=== PATIENT | male | born 1960 | race Caucasian/White ===

== ENCOUNTER → 2017-02-05 | Outpatient (CLI) | payer OTHER ==
[~2017-02-05] MED LIST: AMLO10TA2 PO; AMLO5TAB2 PO; BACT800T5 PO; BAYETES; GLUCTES27 XX; LEVEMIR SQ; LIPI20TA PO; NOVORP2 SQ; OMEP40CA2 PO; [UNRECOGNIZED DRUG - OTHER]; insulin syringes SQ
[2017-02-05 08:50] LABS: ALKALINE PHOSPHATASE 90 U/L (45-117); ALT (GPT) 26 U/L (12-78); ANION GAP 7 MEQ/L (5-15); AST (GOT) 21 U/L (15-37); BICARBONATE 30.8 MEQ/L (21.0-32.0); BLOOD UREA NITROGEN 25 MG/DL (7-18); CHLORIDE 105 MEQ/L (98-107); GLOMERULAR FILTRATION RATE 46 ML/MIN (>89); GLUCOSE,FASTING 187 MG/DL (74-99); HDL CHOLESTEROL 59.4 MG/DL (40.0-60.0); LDL CHOLESTEROL 57 MG/DL (0-99); SODIUM (NA) 143 MEQ/L (136-145); TOTAL BILIRUBIN ADULT 0.4 MG/DL (0.2-1.0)
== END ==
LOC: CLAB 07:50
PROVIDERS: ATTEND Family Medicine
DX: E11.9 Type 2 diabetes mellitus without complications (principal); L73.9 Follicular disorder, unspecified; I10 Essential (primary) hypertension; Z59.0 Homelessness
CPT/HCPCS: 36415; 80053; 80061

== ENCOUNTER → 2017-02-12 | Outpatient (CLI) | payer OTHER ==
[2017-02-12 10:53] LABS: ANION GAP 6 MEQ/L (5-15); BLOOD UREA NITROGEN 23 MG/DL (7-18); CHLORIDE 103 MEQ/L (98-107); GLOMERULAR FILTRATION RATE 55 ML/MIN (>89); GLUCOSE,FASTING 142 MG/DL (74-99); POTASSIUM 5.2 MEQ/L (3.5-5.1); SODIUM (NA) 142 MEQ/L (136-145)
[2017-02-12 10:56] LABS: HEMOGLOBIN A1a 1.3 %; HEMOGLOBIN A1b 0.9 %; HEMOGLOBIN Ao 82.9 %; HEMOGLOBIN LA1C 2.3 %; HEMOGLOBIN P3 4.1 %
== END ==
LOC: CLAB 09:49
PROVIDERS: ATTEND Family Medicine
DX: N18.9 Chronic kidney disease, unspecified (principal); E11.9 Type 2 diabetes mellitus without complications
CPT/HCPCS: 36415; 80069; 83036

== ENCOUNTER → 2017-02-19 | Outpatient (CLI) | payer OTHER ==
[~2017-02-19] MED LIST changes: -AMLO5TAB2 PO
[2017-02-19 08:42] LABS: URINE TOTAL PROTEIN TIMED 9.3 MG/DL
== END ==
LOC: CLAB 07:52
PROVIDERS: ATTEND Family Medicine
DX: N18.9 Chronic kidney disease, unspecified (principal)
CPT/HCPCS: 84157

== ENCOUNTER 2018-08-25 13:04 | Inpatient (IN) ==
[2018-08-25] MEDS ORDERED: Sod Chloride 0.9% Inj 1,000 ML IV.SIG ONE (13:10)
[2018-08-25 13:21] LABS: ABG PCO2 24 mmHg (38-42); ABG PO2 61 mmHg (61-120)
[2018-08-25 13:42] LABS: Baso # (Auto) 0.1 th/mm3 (0.0-0.2); Baso % (Auto) 0.3 % (0.0-2.0); Eos % (Auto) 0.1 % (0.0-4.0); Hematocrit 38.8 % (39.0-51.0); Hemoglobin 12.5 gm/dL (13.0-17.0); Lymph # (Auto) 1.9 th/mm3 (1.0-4.8); Lymph % (Auto) 10.9 % (9.0-44.0); Mean Corpuscular HGB Conc 32.4 % (32.0-36.0); Mean Corpuscular Volume 89.5 fL (80.0-100.0); Mean Platelet Volume 8.9 fL (7.0-11.0); Mono # (Auto) 1.1 th/mm3 (0.0-0.9); Mono % (Auto) 6.5 % (0.0-8.0); Neut # (Auto) 14.2 th/mm3 (1.8-7.7); Neut % (Auto) 82.2 % (16.0-70.0); Platelet Count 175 th/mm3 (150-450); Red Blood Count 4.33 mil/mm3 (4.50-5.90); Red Cell Distribution Width 13.1 % (11.6-17.2); White Blood Count 17.2 th/mm3 (4.0-11.0)
[2018-08-25 13:57] LABS: Activated Partial Thrombo Time 24.5 sec (24.3-30.1); INR 1.3 Ratio; Prothrombin Time 13.3 sec (9.8-11.6)
[2018-08-25 14:06] LABS: Alanine Aminotransferase 15 U/L (12-78); Albumin 2.6 g/dL (3.4-5.0); Alkaline Phosphatase 86 U/L (45-117); Anion Gap 16 meq/L (5-15); Aspartate Aminotransferase 30 U/L (15-37); Blood Urea Nitrogen 26 mg/dL (7-18); Calcium 8.5 mg/dL (8.5-10.1); Carbon Dioxide 19.3 meq/L (21.0-32.0); Chloride 94 meq/L (98-107); Creatine Kinase 304 U/L (39-308); Glomerular Filtration Rate 17 mL/min (>89); Lipase 53 U/L (73-393); Magnesium 1.5 mg/dL (1.5-2.5); Phosphorus 0.7 mg/dL (2.5-4.9); Sodium 129 meq/L (136-145); Total Protein 7.4 g/dL (6.4-8.2)
[2018-08-25 14:07] LABS: Potassium 4.4 meq/L (3.5-5.1)
[2018-08-25 14:09] LABS: Glucose,Random 516 mg/dL (74-106)
[2018-08-25 14:12] LABS: Bacteria,Urine Many /hpf; Bilirubin,Urine Negative (Negative); Clarity,Urine Cloudy (Clear); Color,Urine Yellow (Yellw/Straw); Glucose,Urine (UA) 50 mg/dL (Negative); Leukocyte Esterase,Urine Negative (Negative); Nitrite,Urine Negative (Negative); Specific Gravity,Urine 1.012 (1.002-1.035)
--- NOTE | 2018-08-25 14:23 | CT ---
EXAM DATE: 08/25/2018 1:17 PM EDT AGE/SEX: 89 years / Male INDICATIONS: Altered mental status. CLINICAL DATA: This is the patient's initial encounter. Patient reports that signs and symptoms have been present for 1 day and indicates a pain score of Nonresponsive. MEDICAL/SURGICAL HISTORY: Non-responsive. Non-responsive. RADIATION DOSE: 36.64 CTDI (mGy) COMPARISON: No prior exams available for comparison. TECHNIQUE: CT of the head without contrast. Using automated exposure control and adjustment of the mA and/or kV according to patient size, radiation dose was kept as low as reasonably achievable to ob tain optimal diagnostic quality images. DICOM format image data is available electronically for revi ew and comparison. FINDINGS: Cerebrum: The ventricles are normal for age. No evidence of midline shift, mass lesion, hemorrhage or acute infarction. No extraaxial fluid collections are seen. Posterior Fossa: The cerebellum and brainstem are intact. The 4th ventricle is midline. The cerebe llopontine angle is unremarkable. Extracranial: The visualized portion of the orbits is intact. Skull: The calvaria is intact. No evidence of skull fracture. CONCLUSION: 1. Negative CT Head non contrast. . Electronically signed by: Dago Parra MD 08/25/2018 2:22 PM EDT
--- NOTE | 2018-08-25 14:23 | XR ---
EXAM DATE: 08/25/2018 1:09 PM EDT AGE/SEX: 89 years / Male INDICATIONS: Fever and shortness of breath. CLINICAL DATA: This is the patient's initial encounter. Patient reports that signs and symptoms have been present for 1 day and indicates a pain score of Nonresponsive. MEDICAL/SURGICAL HISTORY: Non-responsive. Non-responsive. COMPARISON: No prior exams available for comparison. FINDINGS: There is a right IJ central line catheter appears in good position. No pneumothorax is seen. The hear t is normal in size. The lungs are clear. The bony structures are grossly intact. CONCLUSION: Right IJ central venous catheter in good position. The lungs are clear. Electronically signed by: Dago Parra MD 08/25/2018 2:22 PM EDT
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
[2018-08-25] MEDS ORDERED: Acetaminophen 325 MG Tablet PO PRN (16:15)
[2018-08-25] MEDS ORDERED: Bisacodyl 10 MG Supp RECTAL PRN (16:15)
[2018-08-25] MEDS ORDERED: Vancomycin Inj 1,250 MG in Sodium Chlor 0.9% Inj 250 ML IV.SIG ONE (16:46)
[2018-08-25] MEDS ORDERED: Vancomycin Consult Pharmacy OTHER PRN (16:46)
[2018-08-25] MEDS ORDERED: Dextrose 50% in Water 50 ML Vial IV.PUSH PRN (16:47)
--- NOTE | 2018-08-25 16:52 | P.HP ---
History of Present Illness Service: Hospitalist Chief Complaint: Altered mental status, abscess History of Present Illness: Mr. Eulogio Anne is a pleasant 58 year old male ( 1960) with a history of diabetes mellitus who was brought to the ED after he was found in altered mental status on the side of a road in the sun. Initially, he came in with GCS 5 and temp of 106.7. Patient recalls going to a store to buy a few things. He was then returning back with this bike but he was not riding his bike. He did not have any chest pain, shortness of breath. He may have felt some dizziness. He does not recall anything else that happened to him. He was given 3L of chilled NS in the ED. His mentation improved quite well. At the time of this interview, patient is coherent and pleasant. He reports a painful area on his left upper back that started about one week ago but much worse in the last two days. He had subjective fever and chills. It has been difficult to sleep due to this lesion on his left upper back. He denies any changes in bladder or bowel habits. PMH: Diabetes mellitus PSH: No major surgeries Social history: Drinks whenever he can obtain drinks. Denies using tobacco or illicit drugs. Family history: Parents had diabetes, brother had diabetes as well. - Diagnosis (1) Hyperthermia (2) Sepsis (3) Soft tissue abscess (4) Diabetes mellitus Review of Systems All other systems reviewed negative except as stated [facility] - History History Provided By: Dean / EMT - Tobacco History Smoking Status: Unknown if ever smoked - Alcohol History How Often Do You Have a Drink Containing Alcohol: Unable to Obtain - Immunization History Tetanus Immunization: Unsure Medications and Allergies Active Medications: Active Medications Acetaminophen (Tylenol) 650 mg PO Q4H PRN PRN Reason: Fever, headache, pain 1-4 Al Hydroxide/Mg Hydroxide (Milk Of Magnesia Liq) 30 ml PO Q12H PRN PRN Reason: Mild Constipation Bisacodyl (Dulcolax Supp) 10 mg RECTAL DAILY PRN PRN Reason: SEVERE CONSITIPATION Dextrose (D50w Vial) 50 ml IV.PUSH UNSCH PRN PRN Reason: PER HYPOGLYCEMIA PROTOCOL Glucagon (Glucagon Inj) 1 mg OTHER PRN PRN PRN Reason: for Hypoglycemia Protocol Sodium Chloride (Ns Inj) 1,000 mls @ 200 mls/hr IV.CONT .Q5H RAVINDRA Piperacillin/Tazobactam/Dextrose (Zosyn 3.375 Gm Premix) 50 mls @ 100 mls/hr IV.SIG Q6H RAVINDRA Vancomycin HCl 1,250 mg/ (Sodium Chloride) 262.5 mls @ 250 mls/hr IV.SIG ONCE ONE Stop: 08/25/18 17:48 Insulin Aspart (Novolog Insulin Correctional Sugar Inj) 0 unit SQ ACHS RAVINDRA; Protocol Insulin Aspart (Novolog Inj) 5 units SQ TIDAC RAVINDAR Insulin Detemir (Levemir Inj) 20 unit SQ HS RAVINDRA Lactulose (Lactulose Liq) 30 ml PO DAILY PRN PRN Reason: SEVERE CONSITIPATION Ondansetron HCl (Zofran Inj) 4 mg IV.PUSH Q6H PRN PRN Reason: NAUSEA OR VOMITING Pharmacy Profile Note (Vancomycin Consult Pharmacy) 1 each OTHER UNSCH PRN PRN Reason: Pharmacy to dose Sennosides (Senokot) 17.2 mg PO Q12H PRN PRN Reason: Moderate Constipation Allergies Allergy/AdvReac Type Severity Reaction Status Date / Time No Known Allergies Allergy Unverified 08/25/18 13:09 Home Medications Medication Instructions Recorded Confirmed Type No Known Home Medications 08/25/18 08/25/18 History Exam Vital signs: Vital Signs 08/25/18 13:05 08/25/18 13:19 08/25/18 13:39 Temperature 106.7 F H 101.8 F H 104.2 F H Pulse Rate 138 H 116 H 122 H Respiratory Rate 45 H 46 H 38 H Blood Pressure 124/56 L 116/56 L 113/55 L Pulse Oximetry 95 94 L 98 08/25/18 16:20 Temperature Pulse Rate Respiratory Rate Blood Pressure Pulse Oximetry 96 Intake & Output 08/24/18 08/25/18 08/25/18 18:59 06:59 18:59 Intake Total 1000 / 1000 Balance 1000 / 1000 Weight 81.647 kg Intake: IV 1000 / 1000 NS Inj 1,000 ML @ 1000 mls/hr 1000 / 1000 IV.SIG ONCE ONE Rx#:[id number] Narrative: GENERAL: This is a well-nourished, well-developed patient, in no apparent distress. Disheveled. SKIN: No rashes, ecchymoses. Warm and dry. There is a large indurated lesion on the left upper back, erythematous. HEAD: Atraumatic. Normocephalic. No temporal or scalp tenderness. EYES: Pupils equal round and reactive. No injection or drainage. ENT: Nose without bleeding, purulent drainage or septal hematoma. Airway patent. NECK: Trachea midline. No lymphadenopathy. Supple, nontender, no meningeal signs. CARDIOVASCULAR: Regular rate and rhythm without murmurs, gallops, or rubs. No JVD. RESPIRATORY: Clear to auscultation. Breath sounds equal bilaterally. No wheezes , rales, or rhonchi. GASTROINTESTINAL: Abdomen soft, non-tender, nondistended. No guarding. MUSCULOSKELETAL: Extremities without clubbing, cyanosis, or edema. NEUROLOGICAL: Awake and alert. Cranial nerves II through XII intact. No focal neurological deficits. Normal speech. Results - Labs CBC & Chem 7: 08/25/18 13:30 08/25/18 17:06 Labs: Laboratory Results - last 24 hr 08/25/18 08/25/18 08/25/18 13:00 13:30 13:30 WBC 17.2 H RBC 4.33 L Hgb 12.5 L Hct 38.8 L MCV 89.5 MCH 29.0 MCHC 32.4 RDW 13.1 Plt Count 175 MPV 8.9 Neut % (Auto) 82.2 H Lymph % (Auto) 10.9 [place] % (Auto) 6.5 Eos % (Auto) 0.1 Baso % (Auto) 0.3 Neut # (Auto) 14.2 H Lymph # (Auto) 1.9 [place] # (Auto) 1.1 H Eos # (Auto) 0.0 Baso # (Auto) 0.1 WBC Differential . Differential Comment Auto diff final PT 13.3 H INR 1.3 APTT 24.5 Puncture Site Right femoral Patient Temperature 98.6 O2 Saturation 92 ABG pH 7.50 H ABG pCO2 24 L* ABG pO2 61 ABG HCO3 19 L ABG O2 Content 15.6 ABG Base Excess -4.0 L ABG Methemoglobin 0.8 Rfed Test Present Hemoglobin 12.1 Carboxyhemoglobin 1.6 O2 Delivery Device Nasal cannula Liter Flow 4.00 Critical Value Yes Sodium Potassium Chloride Carbon Dioxide Anion Gap BUN Creatinine Estimated GFR Random Glucose Lactic Acid Calcium Phosphorus Magnesium Total Bilirubin AST ALT Alkaline Phosphatase Total Creatine Kinase CK-MB (CK-2) Total Protein Albumin Lipase Urine Color Urine Clarity Urine pH Ur Specific [place] Urine Protein Urine Glucose (UA) Urine Ketones Urine Occult Blood Urine Nitrate Urine Bilirubin Urine Urobilinogen Ur Leukocyte Esterase Urine RBC Urine WBC Urine Bacteria Micro UA Comment Ur Microscopic Review Urine Culture Comments 08/25/18 08/25/18 08/25/18 13:30 13:30 13:55 WBC RBC Hgb Hct MCV MCH MCHC RDW Plt Count MPV Neut % (Auto) Lymph % (Auto) [place] % (Auto) Eos % (Auto) Baso % (Auto) Neut # (Auto) Lymph # (Auto) [place] # (Auto) Eos # (Auto) Baso # (Auto) WBC Differential Differential Comment PT INR APTT Puncture Site Patient Temperature O2 Saturation ABG pH ABG pCO2 ABG pO2 ABG HCO3 ABG O2 Content ABG Base Excess ABG Methemoglobin Fred Test Hemoglobin Carboxyhemoglobin O2 Delivery Device Liter Flow Critical Value Sodium 129 L Potassium 4.4 Chloride 94 L Carbon Dioxide 19.3 L Anion Gap 16 H BUN 26 H Creatinine 3.10 H Estimated GFR 17 L Random Glucose 516 H* Lactic Acid 3.2 H Calcium 8.5 Phosphorus 0.7 L Magnesium 1.5 Total Bilirubin 1.0 AST 30 ALT 15 Alkaline Phosphatase 86 Total Creatine Kinase 304 CK-MB (CK-2) Less than 1.0 Total Protein 7.4 Albumin 2.6 L Lipase 53 L Urine Color Yellow Urine Clarity Cloudy H Urine pH 5.0 Ur Specific [place] 1.012 Urine Protein 30 H Urine Glucose (UA) 50 Urine Ketones Negative Urine Occult Blood Small H Urine Nitrate Negative Urine Bilirubin Negative Urine Urobilinogen Less than 2 Ur Leukocyte Esterase Negative Urine RBC 2 Urine WBC 1 Urine Bacteria Many H Micro UA Comment Cath-culture ind Ur Microscopic Review Not Reportable Urine Culture Comments Cath-cult indicated - Imaging Impressions Chest X-Ray 08/25/18 13:09 CONCLUSION: Right IJ central venous catheter in good position. The lungs are clear. Head CT 08/25/18 13:09 CONCLUSION: 1. Negative CT Head non contrast. . Caprini VTE Risk Assessment Caprini VTE Risk Assessment: No/Low Risk (score <= 1) Caprini Risk Assessment Model: Point Value = 1 Point Value = 2 Point Value = 3 Point Value = 5 Age 41-60 Minor surgery BMI > 25 kg/m2 Swollen legs Varicose veins or History of unexplained or recurrent spontaneous Oral contraceptives or hormone replacement Sepsis (< 1 month) Serious lung disease, including pneumonia (< 1 month) Abnormal pulmonary function Acute myocardial infarction Congestive heart failure (< 1 month) History of inflammatory bowel disease Medical patient at bed rest Age 61-74 Arthroscopic surgery Major open surgery (> 45 min) Laparoscopic surgery (> 45 min) Malignancy Confined to bed (> 72 hours) Immobilizing plaster cast Central venous access Age >= 75 History of VTE Family history of VTE Factor V Leiden Prothrombin [id number] Lupus anticoagulant Anticardiolipin antibodies Elevated serum homocysteine Heparin-induced thrombocytopenia Other congenital or acquired thrombophilia Stroke (< 1 month) Elective arthroplasty Hip, pelvis, or leg fracture Acute spinal cord injury (< 1 month) Prophylaxis Regimen: Total Risk Factor Score Risk Level Prophylaxis Regimen 0-1 Low Early ambulation 2 Moderate Order ONE of the following: *Sequential Compression Device (SCD) *Heparin 5000 units SQ BID 3-4 Higher Order ONE of the following medications: *Heparin 5000 units SQ TID *Enoxaparin/Lovenox 40 mg SQ daily (WT < 150 kg, CrCl > 30 mL/min) *Enoxaparin/Lovenox 30 mg SQ daily (WT < 150 kg, CrCl > 10-29 mL/min) *Enoxaparin/Lovenox 30 mg SQ BID (WT < 150 kg, CrCl > 30 mL/min) AND/OR *Sequential Compression Device (SCD) 5 or more Highest Order ONE of the following medications: *Heparin 5000 units SQ TID (Preferred with Epidurals) *Enoxaparin/Lovenox 40 mg SQ daily (WT < 150 kg, CrCl > 30 mL/min) *Enoxaparin/Lovenox 30 mg SQ daily (WT < 150 kg, CrCl > 10-29 mL/min) *Enoxaparin/Lovenox 30 mg SQ BID (WT < 150 kg, CrCl > 30 mL/min) AND *Sequential Compression Device (SCD) Assessment and Plan - Assessment (1) Hyperthermia Code(s): R50.9 - Fever, unspecified Status: Acute (2) Sepsis Code(s): A41.9 - Sepsis, unspecified organism Status: Acute (3) Soft tissue abscess Code(s): L02.91 - Cutaneous abscess, unspecified Status: Acute (4) Diabetes mellitus Code(s): E11.9 - Type 2 diabetes mellitus without complications Status: Acute - Plan Mr. Anne is a pleasant 58 year old male with a history of diabetes mellitus who was brought to the hospital by EMS with altered mental status, GCS 5 and temp 106.7 after he was found at the side of the road in the sun. Hyperthermia - Possibly heat stroke. His condition improved with normal saline infusion. - CK 304, will check again this afternoon. Sepsis (Fever, WBC over 17K, lactic acid 3.2, probable infection skin abscess). Left upper back skin abscess - We will obtain an ultrasound study. - Empirically, we will start Vancomycin and Zosyn. - Blood cultures pending Diabetes mellitus Diabetes retinopathy Diabetic peripheral neuropathy -Start Levemir 15 units QHS, sliding scale insulin and pre-meal insulin. -May consider Gabapentin once creatinine improves. Acute kidney injury -Creatinine 3.1 on admission. Likely due to volume depletion. -Will provide aggressive hydration with NS 200cc/hour. -Repeat BMP, Lactic acid, Total CK in the afternoon today and labs in the AM. Full code. Megax.
[2018-08-25] MEDS ORDERED: Sodium Chloride 0.9% 2 ML Flush PRN IV.FLUSH (16:53)
[2018-08-25] MEDS ORDERED: Vancomycin Inj 2,000 MG in Sodium Chlor 0.9% Inj 500 ML IV.SIG ONE (17:00)
[2018-08-25] MEDS: Sod Chloride 0.9% Inj 1,000 ML IV.CONT SCH ×2 (17:38→21:49)
--- NOTE | 2018-08-25 17:44 | US ---
EXAM DATE: 08/25/2018 12:00 AM EDT AGE/SEX: 89 years / Male INDICATIONS: Swelling and redness on the left upper back. CLINICAL DATA: This is the patient's initial encounter. Patient reports that signs and symptoms have been present for 1 week and indicates a pain score of 0/10. MEDICAL/SURGICAL HISTORY: None. None. COMPARISON: No prior exams available for comparison. FINDINGS: A targeted ultrasound examination was performed along the left upper back at site of swelling and red ness. This demonstrates a complex hypoechoic structure measuring up to 4.5 x 2 x 4.2 cm in diameter. This is mild surrounding color flow and no internal color flow. The margins are fairly well defined. CONCLUSION: 1. Complex hypoechoic masslike structure which is nonspecific. This could represent a hematoma. Electronically signed by: Eduardo Avery MD 08/25/2018 5:43 PM EDT
[2018-08-25] MEDS: Insulin NovoLOG Aspart Correctional Sugar Inj SQ SCH ×2 (17:50→22:07)
[2018-08-25] MEDS: Piperacil/Tazo 3.375 GM Premix 50 ML IV.SIG SCH (17:51)
[2018-08-25 18:35] LABS: Calcium 7.6 mg/dL (8.5-10.1); Carbon Dioxide 22.3 meq/L (21.0-32.0)
[2018-08-25 19:13] LABS: CKMB Percent 0.4 % (0.0-4.0); Creatine Kinase MB 3.7 ng/mL (0.5-3.6)
[2018-08-25] MEDS ORDERED: Insulin Detemir Inj 1,000 UNIT/10 ML Vial SQ SCH (21:00)
[2018-08-25] MEDS: Insulin Detemir Inj 1,000 UNIT/10 ML Vial SQ SCH (21:49)
[2018-08-25] MEDS: Sodium Chloride 0.9% 2 ML Flush BID IV.FLUSH SCH (22:07)
[2018-08-26] MEDS: Piperacil/Tazo 3.375 GM Premix 50 ML IV.SIG SCH ×5 (00:46→23:18)
[2018-08-26] MEDS: Sod Chloride 0.9% Inj 1,000 ML IV.CONT SCH ×7 (03:24→22:52)
[2018-08-26 05:02] LABS: Baso % (Auto) 0.4 % (0.0-2.0); Eos # (Auto) 0.1 th/mm3 (0.0-0.4); Eos % (Auto) 0.9 % (0.0-4.0); Hematocrit 31.1 % (39.0-51.0); Hemoglobin 10.5 gm/dL (13.0-17.0); Lymph % (Auto) 9.3 % (9.0-44.0); Mean Corpuscular HGB Conc 33.9 % (32.0-36.0); Mean Corpuscular Hemoglobin 29.4 pg (27.0-34.0); Mean Corpuscular Volume 86.7 fL (80.0-100.0); Mean Platelet Volume 8.7 fL (7.0-11.0); Mono # (Auto) 0.8 th/mm3 (0.0-0.9); Mono % (Auto) 6.8 % (0.0-8.0); Neut # (Auto) 9.4 th/mm3 (1.8-7.7); Neut % (Auto) 82.6 % (16.0-70.0); Platelet Count 101 th/mm3 (150-450); Red Blood Count 3.59 mil/mm3 (4.50-5.90); Red Cell Distribution Width 12.8 % (11.6-17.2); White Blood Count 11.3 th/mm3 (4.0-11.0)
[2018-08-26 05:44] LABS: Alanine Aminotransferase 22 U/L (12-78); Albumin 2.3 g/dL (3.4-5.0); Alkaline Phosphatase 67 U/L (45-117); Anion Gap 10 meq/L (5-15); Aspartate Aminotransferase 66 U/L (15-37); Blood Urea Nitrogen 30 mg/dL (7-18); Calcium 7.6 mg/dL (8.5-10.1); Chloride 106 meq/L (98-107); Creatine Kinase 2227 U/L (39-308); Glomerular Filtration Rate 28 mL/min (>89); Glucose,Random 119 mg/dL (74-106); Potassium 3.6 meq/L (3.5-5.1); Sodium 141 meq/L (136-145); Total Protein 6.1 g/dL (6.4-8.2); Vancomycin,Trough 18.5 mcg/mL (5.0-10.0)
[2018-08-26 06:05] LABS: CKMB Percent 0.6 % (0.0-4.0); Creatine Kinase MB 13.4 ng/mL (0.5-3.6)
[2018-08-26] MEDS: Insulin NovoLOG Aspart Correctional Sugar Inj SQ SCH ×4 (08:34→20:38)
[2018-08-26] MEDS: Sodium Chloride 0.9% 2 ML Flush BID IV.FLUSH SCH ×3 (08:42→20:39)
[2018-08-26 08:57] LABS: ABG Base Excess 2.8 mmol/L (-2-2); ABG PCO2 28 mmHg (38-42); ABG PO2 109 mmHg (60-120)
[2018-08-26] MEDS ORDERED: Enoxaparin Inj 30 MG/0.3 ML Syringe SQ SCH (09:00)
--- NOTE | 2018-08-26 14:06 | ECHRPT ---
Indication: SEPSIS ENDOCARDITIS CONCLUSIONS Normal left ventricular size. Wall thickness is normal. The left ventricular systolic function is low normal with an estimated ejection fraction in the rang e of 50- 55%. Trace mitral valve regurgitation. Aortic valve sclerosis is present. Mild thickening of the aortic valve leaflets. The estimated pulmonary arterial pressure is 16 mmHg. There is a trivial pericardial effusion present. BP: / HR: Rhythm: Technical Quality: FINDINGS LEFT VENTRICLE Normal left ventricular size. Wall thickness is normal. The left ventricular systolic function is low normal with an estimated ejection fraction in the rang e of 50- 55%. RIGHT VENTRICLE Normal right ventricular size and systolic function. LEFT ATRIUM The left atrial size is normal. RIGHT ATRIUM The right atrial size is normal. ATRIAL SEPTUM Normal atrial septal thickness without atrial level shunting by limited color doppler interrogation. AORTA The aortic root and proximal ascending aorta are normal in size on limited imaging. MITRAL VALVE Trace mitral valve regurgitation. AORTIC VALVE Aortic valve sclerosis is present. Mild thickening of the aortic valve leaflets. TRICUSPID VALVE The estimated pulmonary arterial pressure is 16 mmHg. PULMONARY VALVE The pulmonary valve is not well visualized. VESSELS The inferior vena cava is normal in size. PERICARDIUM There is a trivial pericardial effusion present. Roberto Santiago MD, FACC, FSCAI (Electronically Signed) Final Date:26 August 2018 14:05
--- NOTE | 2018-08-26 14:34 | P.CONID ---
History of Present Illness Service: Infectious Disease Consult date: 08/26/18 Requesting Physician: Lj Mahoney Reason for Consult: Evaluate patient with positive blood culture Primary Care Provider: UNKNOWN Chief Complaint: Altered mental status, abscess History of Present Illness: Patient seen and examined. Records reviewed. Patient is a 58-year-old male, brought into the hospital after [place]. Patient could not really remember what happened and how he ended up on the day H. He was apparently out in the road in the sun. He was given fluids in the ED, and his mental status improved. His temperature was 106.7 when he came in, white count was 17,000. CT of the head was negative. Patient was found to have a complex fluid in his back. He could not remember how he got it. Patient however is homeless. Temperatures are better. His WBC is down to 11. Blood cultures are now reported as growing gram-positive cocci. Patient also had renal insufficiency, and his creatinine is down to 2. Patient denies any respiratory complaint. He has not had any fever chills or sweats prior to coming into the hospital. He denies any abdominal pain, nausea or vomiting. Denies any urinary complaints. Patient denies using IV drugs. Infectious disease consultation has been requested to evaluate the patient with positive blood culture. Review of Systems Constitutional: Reports fever(s) Eyes: Denies discharge, Denies dry eyes Ears, Nose, Mouth, and Throat: Denies difficulty swallowing, Denies ear pain, Denies facial pain, Denies mouth pain, Denies nasal congestion, Denies nasal discharge, Denies sore throat Cardiovascular: Denies chest pain, Denies shortness of breath Respiratory: Denies chest congestion, Denies cough, Denies shortness of breath Gastrointestinal: Denies loose stools, Denies nausea, Denies pain with swallowing, Denies vomiting Genitourinary: Denies difficulty urinating, Denies painful urination Musculoskeletal: Reports back pain, Denies joint pain, Denies joint swelling Skin/Breast: Reports sores, Denies rash Neurologic: Denies headache(s) PMFSH - History History Provided By: Patient - Tobacco History Second Hand Smoke Exposure: Yes Smoking Status: Never smoker - Alcohol History How Often Do You Have a Drink Containing Alcohol: 2 to 4 times a month - Substance Use History Substance History: No History of Abuse - Travel History Recent Travel in the [facility] Within the Last 8 Weeks: No - Immunization History Tetanus Immunization: Unsure Medications and Allergies Active Medications: Active Medications Acetaminophen (Tylenol) 650 mg PO Q4H PRN PRN Reason: Fever, headache, pain 1-4 Al Hydroxide/Mg Hydroxide (Milk Of Magnesia Liq) 30 ml PO Q12H PRN PRN Reason: Mild Constipation Bisacodyl (Dulcolax Supp) 10 mg RECTAL DAILY PRN PRN Reason: SEVERE CONSITIPATION Dextrose (D50w Vial) 50 ml IV.PUSH UNSCH PRN PRN Reason: PER HYPOGLYCEMIA PROTOCOL Enoxaparin Sodium (Lovenox Inj) 30 mg SQ DAILY [facility] Last Admin: 08/26/18 08:30 Dose: 30 mg Glucagon (Glucagon Inj) 1 mg OTHER PRN PRN PRN Reason: for Hypoglycemia Protocol Sodium Chloride (Ns Inj) 1,000 mls @ 200 mls/hr IV.CONT .Q5H [facility] Last Admin: 08/26/18 08:38 Dose: 200 mls/hr Piperacillin/Tazobactam/Dextrose (Zosyn 3.375 Gm Premix) 50 mls @ 100 mls/hr IV.SIG Q6H [facility] Last Infusion: 08/26/18 13:05 Dose: Infused Insulin Aspart (Novolog Insulin Correctional Sugar Inj) 0 unit SQ ACHS [facility]; Protocol Last Admin: 08/26/18 12:36 Dose: 2 unit Insulin Aspart (Novolog Inj) 5 units SQ TIDAC [facility] Last Admin: 08/26/18 12:36 Dose: 5 units Insulin Detemir (Levemir Inj) 15 unit SQ HS [facility] Last Admin: 08/25/18 21:49 Dose: 15 unit Lactulose (Lactulose Liq) 30 ml PO DAILY PRN PRN Reason: SEVERE CONSITIPATION Ondansetron HCl (Zofran Inj) 4 mg IV.PUSH Q6H PRN PRN Reason: NAUSEA OR VOMITING Pharmacy Profile Note (Vancomycin Consult Pharmacy) 1 each OTHER UNSCH PRN PRN Reason: Pharmacy to dose Potassium Chloride (Klor-Con 10) 30 meq PO BID [facility] Stop: 08/28/18 20:59 Last Admin: 08/26/18 08:30 Dose: 30 meq Sennosides (Senokot) 17.2 mg PO Q12H PRN PRN Reason: Moderate Constipation Sodium Chloride (Ns Flush) 2 ml IV.FLUSH BID [facility] Last Admin: 08/26/18 08:42 Dose: Not Given Sodium Chloride (Ns Flush) 2 ml IV.FLUSH PRN PRN PRN Reason: FLUSH AFTER USING IV ACCESS Allergies Allergy/AdvReac Type Severity Reaction Status Date / Time No Known Allergies Allergy Unverified 08/25/18 13:09 Home Medications Medication Instructions Recorded Confirmed Type No Known Home Medications 08/25/18 08/25/18 History Exam Vital signs: Vital Signs 08/25/18 14:30 08/25/18 15:30 08/25/18 16:20 Temperature 102.6 F H 101.8 F H Pulse Rate 118 H 124 H Respiratory Rate 17 24 Blood Pressure 118/59 L 118/67 Pulse Oximetry 97 100 96 08/25/18 16:30 08/25/18 17:30 08/25/18 18:49 Temperature 101.1 F H 101.1 F H Pulse Rate 119 H 106 H 76 Respiratory Rate 21 21 Blood Pressure 119/65 106/60 101/56 L Pulse Oximetry 100 100 97 08/25/18 19:16 08/25/18 19:17 08/25/18 19:56 Temperature 99.5 F Pulse Rate 76 Respiratory Rate 16 Blood Pressure 102/71 Pulse Oximetry 100 98 08/25/18 22:00 08/25/18 23:13 08/26/18 00:00 Temperature 97.2 F L 97 F L Pulse Rate 72 75 66 Respiratory Rate 20 20 Blood Pressure 104/64 105/57 L Pulse Oximetry 98 98 08/26/18 04:00 08/26/18 04:38 08/26/18 08:00 Temperature 97.6 F 97.9 F Pulse Rate 68 70 64 Respiratory Rate 20 20 Blood Pressure 120/65 126/64 Pulse Oximetry 100 98 08/26/18 12:00 Temperature Pulse Rate 65 Respiratory Rate Blood Pressure Pulse Oximetry Intake & Output 08/25/18 08/26/18 08/26/18 18:59 06:59 18:59 Intake Total 1050 / 1050 2780 / 2780 1100 / 1100 Output Total 1999 / 1999 Balance 1050 / 1050 780 / 780 1100 / 1100 Weight 81.647 kg 84.3 kg Intake: IV 1050 / 1050 2570 / 2570 1100 / 1100 NS Inj 1,000 ML @ 200 mls/hr IV 1999 1000 / 1000 .CONT .Q5H [facility] Rx#:[id number] Zosyn 3.375 GM Premix 50 ML @ 50 / 50 50 / 50 100 / 100 100 mls/hr IV.SIG Q6H [facility] Rx#: [id number] NS Inj 1,000 ML @ 1000 mls/hr 1000 / 1000 IV.SIG ONCE ONE Rx#:[id number] Vancomycin Inj 2,000 MG In NS 520 / 520 Inj 500 ML @ 250 mls/hr IV.SIG ONCE ONE Rx#:[id number] Oral 210 / 210 Output: Urine Amount (Catheter) 1999 Indwelling Urethral Catheter 1999 Other: Date of Last Bowel Movement 08/25/18 08/25/18 Weight On Admission 84.3 kg Narrative: Physical Examination GENERAL: Patient is a well-nourished, well-developed male, unkempt, awake and alert, not in respiratory distress. SKIN: Cool and dry. No generalized rash. he has a lot of dirt on his skin rachel in BLE. No evidence of embolic lesions. HEAD: Atraumatic. Normocephalic. No temporal wasting, or tenderness. EYES: [place] conjunctiva. No petechia or hemorrhage. Pupils equal, round and reactive to light. Extraocular movements full and intact. No scleral icterus. No injection or drainage. EARS, NOSE AND THROAT: Nose without bleeding or purulent nasal discharge. No sinus tenderness. Mucous membranes pink and moist. No oral lesions noted. No exudate. No oral thrush. NECK: Trachea midline. Supple and not tender, no meningeal signs CARDIOVASCULAR: Regular rate and rhythm. No murmurs, rubs or gallops heard RESPIRATORY: Clear to auscultation. Breath sounds equal bilaterally. No rales , wheezing or rhonchi ABDOMEN: Soft, non-tender, nondistended. Bowel sounds present and normoactive. No guarding. No rebound. No organomegaly. BACK: There is a tender indurated area in the L upper back, with 1 inch eschar in the middle, has bloody drainage in the dressingf= EXTREMITIES: No clubbing, cyanosis, or edema. No joint effusion, has good ROM. No calf tenderness. Well perfused and warm. NEUROLOGICAL: Awake and alert. Cranial nerves grossly intact. Motor grossly within normal limits. PSYCHIATRIC: Normal affect, calm and cooperative. LINE: No evidence of infection Results - Labs CBC & Chem 7: 08/26/18 04:04 08/26/18 04:04 Labs: Laboratory Results - last 24 hr 08/25/18 08/25/18 08/25/18 13:55 14:09 17:06 WBC RBC Hgb Hct MCV MCH MCHC RDW Plt Count MPV Neut % (Auto) Lymph % (Auto) [place] % (Auto) Eos % (Auto) Baso % (Auto) Neut # (Auto) Lymph # (Auto) [place] # (Auto) Eos # (Auto) Baso # (Auto) WBC Differential Differential Comment Puncture Site Right radial Patient Temperature 98.6 O2 Saturation 97 ABG pH 7.47 H ABG pCO2 28 L ABG pO2 109 ABG HCO3 20 L ABG O2 Content 16.2 ABG Base Excess 2.8 H ABG Methemoglobin 0.7 Fred Test Present Hemoglobin 11.8 L Carboxyhemoglobin 1.4 O2 Delivery Device Room air Inspired O2 21 Critical Value No Sodium Potassium Chloride Carbon Dioxide Anion Gap BUN Creatinine Estimated GFR POC Glucose Random Glucose Lactic Acid 3.2 H 2.2 H Calcium Total Bilirubin AST ALT Alkaline Phosphatase Total Creatine Kinase CK-MB (CK-2) CK-MB (CK-2) % Total Protein Albumin Vancomycin Trough 08/25/18 08/25/18 08/25/18 17:06 17:41 21:48 WBC RBC Hgb Hct MCV MCH MCHC RDW Plt Count MPV Neut % (Auto) Lymph % (Auto) [place] % (Auto) Eos % (Auto) Baso % (Auto) Neut # (Auto) Lymph # (Auto) [place] # (Auto) Eos # (Auto) Baso # (Auto) WBC Differential Differential Comment Puncture Site Patient Temperature O2 Saturation ABG pH ABG pCO2 ABG pO2 ABG HCO3 ABG O2 Content ABG Base Excess ABG Methemoglobin Fred Test Hemoglobin Carboxyhemoglobin O2 Delivery Device Inspired O2 Critical Value Sodium 135 L Potassium 3.0 L D Chloride 99 Carbon Dioxide 22.3 Anion Gap 14 BUN 30 H Creatinine 2.60 H Estimated GFR 21 L POC Glucose 384 H 142 H Random Glucose 392 H D Lactic Acid Calcium 7.6 L D Total Bilirubin AST ALT Alkaline Phosphatase Total Creatine Kinase 937 H CK-MB (CK-2) 3.7 H CK-MB (CK-2) % 0.4 Total Protein Albumin Vancomycin Trough 08/26/18 08/26/18 08/26/18 04:04 04:04 12:35 WBC 11.3 H RBC 3.59 L Hgb 10.5 L D Hct 31.1 L MCV 86.7 MCH 29.4 MCHC 33.9 RDW 12.8 Plt Count 101 L D MPV 8.7 Neut % (Auto) 82.6 H Lymph % (Auto) 9.3 [place] % (Auto) 6.8 Eos % (Auto) 0.9 Baso % (Auto) 0.4 Neut # (Auto) 9.4 H Lymph # (Auto) 1.0 [place] # (Auto) 0.8 Eos # (Auto) 0.1 Baso # (Auto) 0.0 WBC Differential . Differential Comment Auto diff final Puncture Site Patient Temperature O2 Saturation ABG pH ABG pCO2 ABG pO2 ABG HCO3 ABG O2 Content ABG Base Excess ABG Methemoglobin Fred Test Hemoglobin Carboxyhemoglobin O2 Delivery Device Inspired O2 Critical Value Sodium 141 Potassium 3.6 Chloride 106 Carbon Dioxide 25.0 Anion Gap 10 BUN 30 H Creatinine 2.06 H Estimated GFR 28 L POC Glucose 150 H Random Glucose 119 H D Lactic Acid Calcium 7.6 L Total Bilirubin 0.3 AST 66 H ALT 22 Alkaline Phosphatase 67 Total Creatine Kinase 2227 H CK-MB (CK-2) 13.4 H CK-MB (CK-2) % 0.6 Total Protein 6.1 L D Albumin 2.3 L Vancomycin Trough 18.5 H - Imaging Impressions Soft Tissue Ultrasound 08/25/18 00:00 CONCLUSION: 1. Complex hypoechoic masslike structure which is nonspecific. This could represent a hematoma. Assessment and Plan - Plan Impression (+) Bc with GPC, ?real or contaminant - prob due to abscess in his back Abscess in L upper back Fevers, ?hyperthermia due to exposure, due to infection - better renal insufficiency leukocytosis better Recommendation Repeat BC Follow C/S Continue IV vanco - pharmacy doing dosing Also on Zosyn - if nothing else on C/S, will D/C Will ask surgery to evaluate the back for4 possible I and D Follow temps Monitor progress I will follow along with you Thank you for this consultation
--- NOTE | 2018-08-26 15:03 | ECG ---
Date Performed: 08/25/2018 Time Performed: 19:41:38 PTAGE: 89 years EKG: Sinus rhythm POSSIBLE LEFT ATRIAL ENLARGEMENT RIGHT BUNDLE BRANCH BLOCK MODERATE T-WAVE ABNORMALITY, CONSIDER LAT ERAL ISCHEMIA ABNORMAL ECG NO PREVIOUS TRACING DOCTOR: Winnie Grijalva Interpretating Date/Time 08/26/2018 15:00:33
--- NOTE | 2018-08-26 17:42 | P.PNIM ---
Physical Exam Vital signs: Vital Signs 08/25/18 18:49 08/25/18 19:16 08/25/18 19:17 Temperature 99.5 F Pulse Rate 76 76 Respiratory Rate 16 Blood Pressure 101/56 L 102/71 Pulse Oximetry 97 100 08/25/18 19:56 08/25/18 22:00 08/25/18 23:13 Temperature 97.2 F L Pulse Rate 72 75 Respiratory Rate 20 Blood Pressure 104/64 Pulse Oximetry 98 98 08/26/18 00:00 08/26/18 04:00 08/26/18 04:38 Temperature 97 F L 97.6 F Pulse Rate 66 68 70 Respiratory Rate 20 20 Blood Pressure 105/57 L 120/65 Pulse Oximetry 98 100 08/26/18 08:00 08/26/18 12:00 08/26/18 16:00 Temperature 97.9 F Pulse Rate 64 65 60 Respiratory Rate 20 Blood Pressure 126/64 Pulse Oximetry 98 Intake & Output 08/25/18 08/26/18 08/26/18 18:59 06:59 18:59 Intake Total 1050 / 1050 2780 / 2780 2099 / 2099 Output Total 1999 Balance 1050 / 1050 780 / 780 2099 / 2099 Weight 81.647 kg 84.3 kg Intake: IV 1050 / 1050 2570 / 2570 2099 / 2100 NS Inj 1,000 ML @ 200 mls/hr IV 1999 .CONT .Q5H [facility] Rx#:[id number] Zosyn 3.375 GM Premix 50 ML @ 50 / 50 50 / 50 100 / 100 100 mls/hr IV.SIG Q6H [facility] Rx#: [id number] NS Inj 1,000 ML @ 1000 mls/hr 1000 / 1000 IV.SIG ONCE ONE Rx#:[id number] Vancomycin Inj 2,000 MG In NS 520 / 520 Inj 500 ML @ 250 mls/hr IV.SIG ONCE ONE Rx#:[id number] Oral 210 / 210 Output: Urine Amount (Catheter) 1999 Indwelling Urethral Catheter 1999 Other: Date of Last Bowel Movement 08/25/18 08/25/18 Weight On Admission 84.3 kg - Urinary Catheter Management Indwelling Urethral Catheter Cath placed during this visit: yes, but has since been removed by the nurse Reason for continuing: Hourly intake/output Insertion date: 08/25/18 Insertion time: 13:16 Removal date: 08/26/18 Removal time: 04:05 Results - Labs CBC & Chem 7: 08/26/18 04:04 08/26/18 04:04 Laboratory Results - last 24 hr 08/25/18 08/25/18 08/25/18 14:09 17:06 17:06 WBC RBC Hgb Hct MCV MCH MCHC RDW Plt Count MPV Neut % (Auto) Lymph % (Auto) [place] % (Auto) Eos % (Auto) Baso % (Auto) Neut # (Auto) Lymph # (Auto) [place] # (Auto) Eos # (Auto) Baso # (Auto) WBC Differential Differential Comment Puncture Site Right radial Patient Temperature 98.6 O2 Saturation 97 ABG pH 7.47 H ABG pCO2 28 L ABG pO2 109 ABG HCO3 20 L ABG O2 Content 16.2 ABG Base Excess 2.8 H ABG Methemoglobin 0.7 Fred Test Present Hemoglobin 11.8 L Carboxyhemoglobin 1.4 O2 Delivery Device Room air Inspired O2 21 Critical Value No Sodium 135 L Potassium 3.0 L D Chloride 99 Carbon Dioxide 22.3 Anion Gap 14 BUN 30 H Creatinine 2.60 H Estimated GFR 21 L POC Glucose Random Glucose 392 H D Lactic Acid 2.2 H Calcium 7.6 L D Total Bilirubin AST ALT Alkaline Phosphatase Total Creatine Kinase 937 H CK-MB (CK-2) 3.7 H CK-MB (CK-2) % 0.4 Total Protein Albumin Vancomycin Trough 08/25/18 08/25/18 08/26/18 17:41 21:48 04:04 WBC 11.3 H RBC 3.59 L Hgb 10.5 L D Hct 31.1 L MCV 86.7 MCH 29.4 MCHC 33.9 RDW 12.8 Plt Count 101 L D MPV 8.7 Neut % (Auto) 82.6 H Lymph % (Auto) 9.3 [place] % (Auto) 6.8 Eos % (Auto) 0.9 Baso % (Auto) 0.4 Neut # (Auto) 9.4 H Lymph # (Auto) 1.0 [place] # (Auto) 0.8 Eos # (Auto) 0.1 Baso # (Auto) 0.0 WBC Differential . Differential Comment Auto diff final Puncture Site Patient Temperature O2 Saturation ABG pH ABG pCO2 ABG pO2 ABG HCO3 ABG O2 Content ABG Base Excess ABG Methemoglobin Fred Test Hemoglobin Carboxyhemoglobin O2 Delivery Device Inspired O2 Critical Value Sodium Potassium Chloride Carbon Dioxide Anion Gap BUN Creatinine Estimated GFR POC Glucose 384 H 142 H Random Glucose Lactic Acid Calcium Total Bilirubin AST ALT Alkaline Phosphatase Total Creatine Kinase CK-MB (CK-2) CK-MB (CK-2) % Total Protein Albumin Vancomycin Trough 08/26/18 08/26/18 08/26/18 04:04 12:35 17:32 WBC RBC Hgb Hct MCV MCH MCHC RDW Plt Count MPV Neut % (Auto) Lymph % (Auto) [place] % (Auto) Eos % (Auto) Baso % (Auto) Neut # (Auto) Lymph # (Auto) [place] # (Auto) Eos # (Auto) Baso # (Auto) WBC Differential Differential Comment Puncture Site Patient Temperature O2 Saturation ABG pH ABG pCO2 ABG pO2 ABG HCO3 ABG O2 Content ABG Base Excess ABG Methemoglobin Fred Test Hemoglobin Carboxyhemoglobin O2 Delivery Device Inspired O2 Critical Value Sodium 141 Potassium 3.6 Chloride 106 Carbon Dioxide 25.0 Anion Gap 10 BUN 30 H Creatinine 2.06 H Estimated GFR 28 L POC Glucose 150 H 132 H Random Glucose 119 H D Lactic Acid Calcium 7.6 L Total Bilirubin 0.3 AST 66 H ALT 22 Alkaline Phosphatase 67 Total Creatine Kinase 2227 H CK-MB (CK-2) 13.4 H CK-MB (CK-2) % 0.6 Total Protein 6.1 L D Albumin 2.3 L Vancomycin Trough 18.5 H Microbiology 08/25/18 13:55 Blood - Peripheral Aerobic Blood Culture - Preliminary gram positive cocci 08/25/18 13:55 Blood - Peripheral Anaerobic Blood Culture - Preliminary No growth in 1 day 08/25/18 13:30 Catheterized Urine Urine Culture - Preliminary No growth in 24 hours 08/25/18 13:55 Blood - Peripheral Aerobic Blood Culture - Preliminary gram positive cocci 08/25/18 13:55 Blood - Peripheral Anaerobic Blood Culture - Preliminary No growth in 1 day - Imaging Impressions Soft Tissue Ultrasound 08/25/18 00:00 CONCLUSION: 1. Complex hypoechoic masslike structure which is nonspecific. This could represent a hematoma. Assessment and Plan - Assessment (1) Hyperthermia Code(s): R50.9 - Fever, unspecified Status: Acute (2) Sepsis Code(s): A41.9 - Sepsis, unspecified organism Status: Acute (3) Soft tissue abscess Code(s): L02.91 - Cutaneous abscess, unspecified Status: Acute (4) Diabetes mellitus Code(s): E11.9 - Type 2 diabetes mellitus without complications Status: Acute - Plan Mr. Anne is a pleasant 58 year old male with a history of diabetes mellitus who was brought to the hospital by EMS with altered mental status, GCS 5 and temp 106.7 after he was found at the side of the road in the sun. //Hyperthermia - Possibly heat stroke. His condition improved with normal saline infusion. - CK 304, will check again this afternoon. //Sepsis (Fever, WBC over 17K, lactic acid 3.2, probable infection skin abscess) . //Left upper back skin abscess //Gram-positive bacteremia. - We will obtain an ultrasound study. - Empirically, we will start Vancomycin and Zosyn. - Blood cultures pending = 08/26. Gram-positive bacteremia today. Repeat blood cultures, check echocardiogram, consult infectious disease. Possible sources include back abscess as well as bilateral foot ulcers. Continue IV antibiotics. General surgery consulted. Appreciate assistance for I&D today. //Bilateral diabetic foot ulcers Continue IV antibiotics. Consult podiatry. //Diabetes mellitus //Diabetes retinopathy //Diabetic peripheral neuropathy -Start Levemir 15 units QHS, sliding scale insulin and pre-meal insulin. -May consider Gabapentin once creatinine improves. = Blood sugars acceptable. Continue to monitor. //Elevated CK. CK up to 2227. Continue IV fluids. Continue to monitor. //Acute kidney injury -Creatinine 3.1 on admission. Likely due to volume depletion. -Will provide aggressive hydration with NS 200cc/hour. -Repeat BMP, Lactic acid, Total CK in the afternoon today and labs in the AM. = Creatinine 2.0, improving. Continue IV fluids. Discussed Condition With: Patient, nurse Discharge Planning: Pending improvement. Difficult discharge as patient is homeless with bacteremia
--- NOTE | 2018-08-26 17:43 | P.CONGS ---
[facility] Gen Surgery Consult Note Consult date: 08/26/18 Reason for consult: other (back abscess) Narrative: This is a 58 year old male with a past medical history of diabetes mellitus who was found in a ditch and hyperthermic. He is unsure of the events leading up to this. He reports a large painful area on his back. A General Surgery consultation has been requested for evaluation of a back abscess. Review of Systems All other systems reviewed negative except as stated in [facility] PMF - History History Provided By: Patient - Medical History Medical History: Medical History (Last Updated 08/27/18 @ 14:48 by OLIVA Rossi) Abscess Diabetes mellitus - Tobacco History Second Hand Smoke Exposure: Yes Smoking Status: Never smoker - Alcohol History How Often Do You Have a Drink Containing Alcohol: 2 to 4 times a month - Substance Use History Substance History: No History of Abuse - Travel History Recent Travel in the [facility] Within the Last 8 Weeks: No - Immunization History Tetanus Immunization: Unsure Medications and Allergies Allergies Allergy/AdvReac Type Severity Reaction Status Date / Time No Known Allergies Allergy Unverified 08/25/18 13:09 Home Medications Medication Instructions Recorded Confirmed Type No Known Home Medications 08/25/18 08/25/18 History Active Medications: Active Medications Acetaminophen (Tylenol) 650 mg PO Q4H PRN PRN Reason: Fever, headache, pain 1-4 Al Hydroxide/Mg Hydroxide (Milk Of Magnkathleen Liq) 30 ml PO Q12H PRN PRN Reason: Mild Constipation Bisacodyl (Dulcolax Supp) 10 mg RECTAL DAILY PRN PRN Reason: SEVERE CONSITIPATION Dextrose (D50w Vial) 50 ml IV.PUSH UNSCH PRN PRN Reason: PER HYPOGLYCEMIA PROTOCOL Enoxaparin Sodium (Lovenox Inj) 30 mg SQ DAILY [facility] Last Admin: 08/26/18 08:30 Dose: 30 mg Glucagon (Glucagon Inj) 1 mg OTHER PRN PRN PRN Reason: for Hypoglycemia Protocol Sodium Chloride (Ns Inj) 1,000 mls @ 200 mls/hr IV.CONT .Q5H [facility] Last Admin: 08/26/18 15:59 Dose: Not Given Piperacillin/Tazobactam/Dextrose (Zosyn 3.375 Gm Premix) 50 mls @ 100 mls/hr IV.SIG Q6H [facility] Last Admin: 10/01/18 17:30 Dose: 100 mls/hr Vancomycin HCl 1,250 mg/ (Sodium Chloride) 262.5 mls @ 250 mls/hr IV.SIG Q24H [facility] Insulin Aspart (Novolog Insulin Correctional Sugar Inj) 0 unit SQ ACHS [facility]; Protocol Last Admin: 08/26/18 17:32 Dose: Not Given Insulin Aspart (Novolog Inj) 5 units SQ TIDAC [facility] Last Admin: 08/26/18 17:32 Dose: Not Given Insulin Detemir (Levemir Inj) 15 unit SQ HS [facility] Last Admin: 08/25/18 21:49 Dose: 15 unit Lactulose (Lactulose Liq) 30 ml PO DAILY PRN PRN Reason: SEVERE CONSITIPATION Miscellaneous Information ([facility] Ordered Lab Info) 0 each OTHER ONCE ONE Stop: 08/28/18 17:46 Ondansetron HCl (Zofran Inj) 4 mg IV.PUSH Q6H PRN PRN Reason: NAUSEA OR VOMITING Pharmacy Profile Note (Vancomycin Consult Pharmacy) 1 each OTHER UNSCH PRN PRN Reason: Pharmacy to dose Potassium Chloride (Klor-Con 10) 30 meq PO BID [facility] Stop: 08/28/18 20:59 Last Admin: 08/26/18 08:30 Dose: 30 meq Sennosides (Senokot) 17.2 mg PO Q12H PRN PRN Reason: Moderate Constipation Sodium Chloride (Ns Flush) 2 ml IV.FLUSH BID [facility] Last Admin: 08/26/18 08:42 Dose: Not Given Sodium Chloride (Ns Flush) 2 ml IV.FLUSH PRN PRN PRN Reason: FLUSH AFTER USING IV ACCESS Exam Vital signs: Vital Signs 08/25/18 18:49 08/25/18 19:16 08/25/18 19:17 Temperature 99.5 F Pulse Rate 76 76 Respiratory Rate 16 Blood Pressure 101/56 L 102/71 Pulse Oximetry 97 100 08/25/18 19:56 08/25/18 22:00 08/25/18 23:13 Temperature 97.2 F L Pulse Rate 72 75 Respiratory Rate 20 Blood Pressure 104/64 Pulse Oximetry 98 98 08/26/18 00:00 08/26/18 04:00 08/26/18 04:38 Temperature 97 F L 97.6 F Pulse Rate 66 68 70 Respiratory Rate 20 20 Blood Pressure 105/57 L 120/65 Pulse Oximetry 98 100 08/26/18 08:00 08/26/18 12:00 08/26/18 16:00 Temperature 97.9 F Pulse Rate 64 65 60 Respiratory Rate 20 Blood Pressure 126/64 Pulse Oximetry 98 Intake & Output 08/25/18 08/26/18 08/26/18 18:59 06:59 18:59 Intake Total 1050 / 1050 2780 / 2780 2099 Output Total 1999 Balance 1050 / 1050 780 / 780 2099 Weight 81.647 kg 84.3 kg Intake: IV 1050 / 1050 2570 / 2570 2099 NS Inj 1,000 ML @ 200 mls/hr IV 1999 .CONT .Q5H [facility] Rx#:[id number] Zosyn 3.375 GM Premix 50 ML @ 50 / 50 50 / 50 100 / 100 100 mls/hr IV.SIG Q6H [facility] Rx#: [id number] NS Inj 1,000 ML @ 1000 mls/hr 1000 / 1000 IV.SIG ONCE ONE Rx#:[id number] Vancomycin Inj 2,000 MG In NS 520 / 520 Inj 500 ML @ 250 mls/hr IV.SIG ONCE ONE Rx#:[id number] Oral 210 / 210 Output: Urine Amount (Catheter) 1999 Indwelling Urethral Catheter 1999 Other: Date of Last Bowel Movement 08/25/18 08/25/18 Weight On Admission 84.3 kg Narrative: GENERAL: Dishevel 58 year old male resting in bed watching TV. SKIN: Bilateral feet with dirt--- areas appearing as ulcers on the bottom of both feet. Large indurated area on upper back with eschar. HEAD: Atraumatic. Normocephalic. EYES: Pupils equal and round. No scleral icterus. No injection or drainage. ENT: No nasal bleeding or discharge. Mucous membranes pink and moist. NECK: Trachea midline. CARDIOVASCULAR: Regular rate and rhythm. RESPIRATORY: No accessory muscle use. Clear to auscultation. Breath sounds equal bilaterally. GASTROINTESTINAL: Abdomen soft, non-tender, nondistended. MUSCULOSKELETAL: Extremities without clubbing, cyanosis, or edema. No obvious deformities. NEUROLOGICAL: Awake and alert. No obvious cranial nerve deficits. Motor grossly within normal limits. Five out of 5 muscle strength in the arms and legs. Normal speech. PSYCHIATRIC: Appropriate mood and affect; insight and judgment normal. - Routine Skin Exam Present: intact Comments: upper back with eschar and induration Results - Labs 08/27/18 06:12 08/27/18 06:12 Laboratory Results - last 24 hr 08/25/18 08/25/18 08/25/18 14:09 17:06 17:06 WBC RBC Hgb Hct MCV MCH MCHC RDW Plt Count MPV Neut % (Auto) Lymph % (Auto) [place] % (Auto) Eos % (Auto) Baso % (Auto) Neut # (Auto) Lymph # (Auto) [place] # (Auto) Eos # (Auto) Baso # (Auto) WBC Differential Differential Comment Puncture Site Right radial Patient Temperature 98.6 O2 Saturation 97 ABG pH 7.47 H ABG pCO2 28 L ABG pO2 109 ABG HCO3 20 L ABG O2 Content 16.2 ABG Base Excess 2.8 H ABG Methemoglobin 0.7 Fred Test Present Hemoglobin 11.8 L Carboxyhemoglobin 1.4 O2 Delivery Device Room air Inspired O2 21 Critical Value No Sodium 135 L Potassium 3.0 L D Chloride 99 Carbon Dioxide 22.3 Anion Gap 14 BUN 30 H Creatinine 2.60 H Estimated GFR 21 L POC Glucose Random Glucose 392 H D Lactic Acid 2.2 H Calcium 7.6 L D Total Bilirubin AST ALT Alkaline Phosphatase Total Creatine Kinase 937 H CK-MB (CK-2) 3.7 H CK-MB (CK-2) % 0.4 Total Protein Albumin Vancomycin Trough 08/25/18 08/25/18 08/26/18 17:41 21:48 04:04 WBC 11.3 H RBC 3.59 L Hgb 10.5 L D Hct 31.1 L MCV 86.7 MCH 29.4 MCHC 33.9 RDW 12.8 Plt Count 101 L D MPV 8.7 Neut % (Auto) 82.6 H Lymph % (Auto) 9.3 [place] % (Auto) 6.8 Eos % (Auto) 0.9 Baso % (Auto) 0.4 Neut # (Auto) 9.4 H Lymph # (Auto) 1.0 [place] # (Auto) 0.8 Eos # (Auto) 0.1 Baso # (Auto) 0.0 WBC Differential . Differential Comment Auto diff final Puncture Site Patient Temperature O2 Saturation ABG pH ABG pCO2 ABG pO2 ABG HCO3 ABG O2 Content ABG Base Excess ABG Methemoglobin Fred Test Hemoglobin Carboxyhemoglobin O2 Delivery Device Inspired O2 Critical Value Sodium Potassium Chloride Carbon Dioxide Anion Gap BUN Creatinine Estimated GFR POC Glucose 384 H 142 H Random Glucose Lactic Acid Calcium Total Bilirubin AST ALT Alkaline Phosphatase Total Creatine Kinase CK-MB (CK-2) CK-MB (CK-2) % Total Protein Albumin Vancomycin Trough 08/26/18 08/26/18 08/26/18 04:04 12:35 17:32 WBC RBC Hgb Hct MCV MCH MCHC RDW Plt Count MPV Neut % (Auto) Lymph % (Auto) [place] % (Auto) Eos % (Auto) Baso % (Auto) Neut # (Auto) Lymph # (Auto) [place] # (Auto) Eos # (Auto) Baso # (Auto) WBC Differential Differential Comment Puncture Site Patient Temperature O2 Saturation ABG pH ABG pCO2 ABG pO2 ABG HCO3 ABG O2 Content ABG Base Excess ABG Methemoglobin Fred Test Hemoglobin Carboxyhemoglobin O2 Delivery Device Inspired O2 Critical Value Sodium 141 Potassium 3.6 Chloride 106 Carbon Dioxide 25.0 Anion Gap 10 BUN 30 H Creatinine 2.06 H Estimated GFR 28 L POC Glucose 150 H 132 H Random Glucose 119 H D Lactic Acid Calcium 7.6 L Total Bilirubin 0.3 AST 66 H ALT 22 Alkaline Phosphatase 67 Total Creatine Kinase 2227 H CK-MB (CK-2) 13.4 H CK-MB (CK-2) % 0.6 Total Protein 6.1 L D Albumin 2.3 L Vancomycin Trough 18.5 H - Imaging Imaging: ITS Impressions Soft Tissue Ultrasound 08/25/18 00:00 CONCLUSION: 1. Complex hypoechoic masslike structure which is nonspecific. This could represent a hematoma. Chest X-Ray 08/25/18 13:09 CONCLUSION: Right IJ central venous catheter in good position. The lungs are clear. Head CT 08/25/18 13:09 CONCLUSION: 1. Negative CT Head non contrast. . Assessment and Plan - Plan 58 year old male with upper back abscess -Plan for OR this evening for I&D and possible Wound Vac placement -Obtain consents -NPO -Procedure explained in detail including risks and benefits -Plan also discussed with Dr. Mahoney -May benefit from Podiatry consultation for ulcers on bilateral feet -Thank you for this consult; We will continue to follow Patient ate a chicken sandwich at 3:30PM according to him; as he is not septic, will plan for surgery tomorrow The exam, history, and the medical decision-making described in the above note were completed with the assistance of the mid-level provider. I reviewed and agree with the findings presented. I attest that I had a [id number] encounter with the patient on the same day, and personally performed and documented my assessment and findings in the medical record. Discussed Condition With: Dr. Wallace Mahoney RN Mr. Anne - Attending Attestation I attest that I had a [id number] encounter with the patient on the same day, and personally performed and documented my assessment and findings in the medical record. The following services were provided during this hospital visit: Chart data review, vital sign assessments/reviewing monitor data Review of consultation notes if present Medication orders/review and/or management Ordering and/or reviewing lab tests Ordering and/or interpreting/reviewing x-rays and/or diagnostic studies Care of the patient and discussion of the patient with the care team Documentation time To help prompt me to consider important information that might be impacting today's encounter and assessment, Information from prior notes written by myself or my colleagues may have been "brought forward/copy and pasted" into today's note.
[2018-08-26] MEDS: Vancomycin Inj 1,250 MG in Sodium Chlor 0.9% Inj 250 ML IV.SIG SCH (18:04)
[2018-08-26] MEDS: Insulin Detemir Inj 1,000 UNIT/10 ML Vial SQ SCH (20:37)
[2018-08-27] MEDS: Sod Chloride 0.9% Inj 1,000 ML IV.CONT SCH ×3 (04:25→10:26)
[2018-08-27] MEDS: Piperacil/Tazo 3.375 GM Premix 50 ML IV.SIG SCH ×4 (06:43→23:26)
[2018-08-27 07:20] LABS: Baso # (Auto) 0.1 th/mm3 (0.0-0.2); Baso % (Auto) 0.7 % (0.0-2.0); Eos # (Auto) 0.3 th/mm3 (0.0-0.4); Eos % (Auto) 4.7 % (0.0-4.0); Hematocrit 29.5 % (39.0-51.0); Mean Corpuscular HGB Conc 33.9 % (32.0-36.0); Mean Corpuscular Hemoglobin 29.6 pg (27.0-34.0); Mean Corpuscular Volume 87.1 fL (80.0-100.0); Mean Platelet Volume 9.5 fL (7.0-11.0); Mono # (Auto) 0.5 th/mm3 (0.0-0.9); Mono % (Auto) 7.2 % (0.0-8.0); Neut # (Auto) 4.9 th/mm3 (1.8-7.7); Neut % (Auto) 72.4 % (16.0-70.0); Platelet Count 98 th/mm3 (150-450); Red Blood Count 3.39 mil/mm3 (4.50-5.90); Red Cell Distribution Width 13.1 % (11.6-17.2); White Blood Count 6.8 th/mm3 (4.0-11.0)
[2018-08-27 08:06] LABS: Albumin 2.1 g/dL (3.4-5.0); Calcium 7.5 mg/dL (8.5-10.1); Carbon Dioxide 24.1 meq/L (21.0-32.0); Phosphorus 2.5 mg/dL (2.5-4.9); Potassium 4.2 meq/L (3.5-5.1)
[2018-08-27 08:21] LABS: Platelet Morphology Normal (Normal)
[2018-08-27 08:40] LABS: CKMB Percent 0.2 % (0.0-4.0); Creatine Kinase MB 4.2 ng/mL (0.5-3.6)
[2018-08-27] MEDS: Sodium Chloride 0.9% 2 ML Flush BID IV.FLUSH SCH ×2 (10:26→21:30)
[2018-08-27] MEDS: Insulin NovoLOG Aspart Correctional Sugar Inj SQ SCH ×4 (10:26→21:04)
--- NOTE | 2018-08-27 10:56 | P.PNID ---
Subjective Remarks: Patient is a 58-year-old male, brought into the hospital after he was found on a ditch. Patient could not really remember what happened and how he ended up on the day H. He was apparently out in the road in the sun. He was given fluids in the ED, and his mental status improved. His temperature was 106.7 when he came in, white count was 17,000. CT of the head was negative. Patient was found to have a complex fluid in his back. He could not remember how he got it. Patient however is homeless. Temperatures are better. His WBC is down to 11. Blood cultures are now reported as growing gram-positive cocci. Patient also had renal insufficiency, and his creatinine is down to 2. Patient denies any respiratory complaint. He has not had any fever chills or sweats prior to coming into the hospital. He denies any abdominal pain, nausea or vomiting. Denies any urinary complaints. Patient denies using IV drugs. Infectious disease consultation has been requested to evaluate the patient with positive blood culture. Notes reviewed Temps better, last fever yesterday at 530pm For OR today Concerned about his DM being on NPO since [place] BC (+) no ID yet Creatinine better WBC lower Antibiotics: Zosyn Vancomycin Lines: PIV Past Medical History: Diabetes Allergies/Adverse Reactions: Allergies No Known Allergies Allergy (Unverified 08/25/18 13:09) Objective Vital Signs 08/26/18 12:00 08/26/18 16:00 08/26/18 20:00 Temperature 98.2 F 98.3 F 99.5 F Pulse Rate 63 60 68 Respiratory Rate 20 20 20 Blood Pressure 110/61 114/66 106/64 Pulse Oximetry 97 97 99 08/26/18 20:48 08/27/18 00:00 08/27/18 04:00 Temperature 98.5 F 98.3 F Pulse Rate 66 55 L Respiratory Rate 20 18 Blood Pressure 140/88 118/58 L Pulse Oximetry 97 96 99 08/27/18 07:55 08/27/18 08:00 Temperature 98.1 F Pulse Rate 59 L Respiratory Rate 20 Blood Pressure 168/81 H Pulse Oximetry 97 99 Intake & Output 08/26/18 08/27/18 08/27/18 18:59 06:59 18:59 Intake Total 2750 / 2750 3312.5 / 3312.5 1050 / 1050 Output Total 200 / 200 Balance 2550 / 2550 3312.5 / 3312.5 1050 / 1050 Weight 87.7 kg Intake: IV 2150 / 2150 3312.5 / 3312.5 1050 / 1050 NS Inj 1,000 ML @ 250 mls/hr IV 2000 / 2000 3000 / 3000 1000 / 1000 .CONT .Q4H [facility] Rx#:[id number] Zosyn 3.375 GM Premix 50 ML @ 150 / 150 50 / 50 50 / 50 100 mls/hr IV.SIG Q6H [facility] Rx#: [id number] Vancomycin Inj 1,250 MG In NS 262.5 / 262.5 Inj 250 ML @ 250 mls/hr IV.SIG Q24H [facility] Rx#:[id number] Oral 600 / 600 Output: Urine 200 / 200 Other: # Voids 1 Date of Last Bowel Movement 08/25/18 # Bowel Movements 1 08/25/18 13:55 Blood - Peripheral Aerobic Blood Culture - Preliminary Staphylococcus coag negative 08/25/18 13:55 Blood - Peripheral Anaerobic Blood Culture - Preliminary gram positive cocci 08/25/18 13:30 Catheterized Urine Urine Culture - Final No growth in 48 hours 08/26/18 14:10 Blood - Peripheral Aerobic Blood Culture - Pending 08/26/18 14:10 Blood - Peripheral Anaerobic Blood Culture - Pending 08/26/18 14:15 Blood - Peripheral Aerobic Blood Culture - Pending 08/26/18 14:15 Blood - Peripheral Anaerobic Blood Culture - Pending 08/25/18 13:55 Blood - Peripheral Aerobic Blood Culture - Preliminary gram positive cocci 08/25/18 13:55 Blood - Peripheral Anaerobic Blood Culture - Preliminary No growth in 1 day Lab - Hematology Results 08/25/18 08/26/18 08/27/18 13:30 04:04 06:12 WBC 17.2 H 11.3 H 6.8 RBC 4.33 L 3.59 L 3.39 L Hgb 12.5 L 10.5 L D 10.0 L Hct 38.8 L 31.1 L 29.5 L MCV 89.5 86.7 87.1 MCH 29.0 29.4 29.6 MCHC 32.4 33.9 33.9 RDW 13.1 12.8 13.1 Plt Count 175 101 L D 98 L MPV 8.9 8.7 9.5 Prelim Diff (Auto) Slide review pending Neut % (Auto) 82.2 H 82.6 H 72.4 H Lymph % (Auto) 10.9 9.3 15.0 [place] % (Auto) 6.5 6.8 7.2 Eos % (Auto) 0.1 0.9 4.7 H Baso % (Auto) 0.3 0.4 0.7 Neut # (Auto) 14.2 H 9.4 H 4.9 Lymph # (Auto) 1.9 1.0 1.0 [place] # (Auto) 1.1 H 0.8 0.5 Eos # (Auto) 0.0 0.1 0.3 Baso # (Auto) 0.1 0.0 0.1 WBC Differential . . . Diff Scan Auto diff confirmed Differential Comment Auto diff final Auto diff final . Platelet Estimate Low L Platelet Morphology Normal Lab - Chemistry Results 08/25/18 08/25/18 08/25/18 13:30 13:55 17:06 Sodium 129 L Potassium 4.4 Chloride 94 L Carbon Dioxide 19.3 L Anion Gap 16 H BUN 26 H Creatinine 3.10 H Estimated GFR 17 L POC Glucose Random Glucose 516 H* Lactic Acid 3.2 H 2.2 H Calcium 8.5 Phosphorus 0.7 L Magnesium 1.5 Total Bilirubin 1.0 AST 30 ALT 15 Alkaline Phosphatase 86 Total Creatine Kinase 304 CK-MB (CK-2) Less than 1.0 CK-MB (CK-2) % Total Protein 7.4 Albumin 2.6 L Lipase 53 L 08/25/18 08/25/18 08/25/18 17:06 17:41 21:48 Sodium 135 L Potassium 3.0 L D Chloride 99 Carbon Dioxide 22.3 Anion Gap 14 BUN 30 H Creatinine 2.60 H Estimated GFR 21 L POC Glucose 384 H 142 H Random Glucose 392 H D Lactic Acid Calcium 7.6 L D Phosphorus Magnesium Total Bilirubin AST ALT Alkaline Phosphatase Total Creatine Kinase 937 H CK-MB (CK-2) 3.7 H CK-MB (CK-2) % 0.4 Total Protein Albumin Lipase 08/26/18 08/26/18 08/26/18 04:04 12:35 17:32 Sodium 141 Potassium 3.6 Chloride 106 Carbon Dioxide 25.0 Anion Gap 10 BUN 30 H Creatinine 2.06 H Estimated GFR 28 L POC Glucose 150 H 132 H Random Glucose 119 H D Lactic Acid Calcium 7.6 L Phosphorus Magnesium Total Bilirubin 0.3 AST 66 H ALT 22 Alkaline Phosphatase 67 Total Creatine Kinase 2227 H CK-MB (CK-2) 13.4 H CK-MB (CK-2) % 0.6 Total Protein 6.1 L D Albumin 2.3 L Lipase 08/26/18 08/27/18 20:08 06:12 Sodium 147 H Potassium 4.2 Chloride 113 H Carbon Dioxide 24.1 Anion Gap 10 BUN 17 Creatinine 1.56 H Estimated GFR 46 L POC Glucose 106 Random Glucose 165 H Lactic Acid Calcium 7.5 L Phosphorus 2.5 D Magnesium 2.0 Total Bilirubin AST ALT Alkaline Phosphatase Total Creatine Kinase 1705 H CK-MB (CK-2) 4.2 H CK-MB (CK-2) % 0.2 Total Protein Albumin 2.1 L Lipase Imaging: ITS Impressions Soft Tissue Ultrasound 08/25/18 00:00 CONCLUSION: 1. Complex hypoechoic masslike structure which is nonspecific. This could represent a hematoma. Chest X-Ray 08/25/18 13:09 CONCLUSION: Right IJ central venous catheter in good position. The lungs are clear. Head CT 08/25/18 13:09 CONCLUSION: 1. Negative CT Head non contrast. . Physical Exam: GENERAL: unkempt, awake and alert, not in respiratory distress. SKIN: Cool and dry. No generalized rash. he has a lot of dirt on his skin rachel in BLE. No evidence of embolic lesions. HEAD: Atraumatic. Normocephalic. No temporal wasting, or tenderness. EYES: [place] conjunctiva. No petechia or hemorrhage. Pupils equal, round and reactive to light. Extraocular movements full and intact. No scleral icterus. No injection or drainage. EARS, NOSE AND THROAT: Nose without bleeding or purulent nasal discharge. No sinus tenderness. Mucous membranes pink and moist. No oral lesions noted. No exudate. No oral thrush. NECK: Trachea midline. Supple and not tender, no meningeal signs CARDIOVASCULAR: Regular rate and rhythm. No murmurs, rubs or gallops heard RESPIRATORY: Clear to auscultation. Breath sounds equal bilaterally. No rales , wheezing or rhonchi ABDOMEN: Soft, non-tender, nondistended. Bowel sounds present and normoactive. No guarding. No rebound. No organomegaly. BACK: There is a tender indurated area in the L upper back, with 1 inch eschar in the middle, has bloody drainage in the dressingf= EXTREMITIES: No clubbing, cyanosis, or edema. No joint effusion, has good ROM. No calf tenderness. Well perfused and warm. NEUROLOGICAL: Awake and alert. Cranial nerves grossly intact. Motor grossly within normal limits. PSYCHIATRIC: Normal affect, calm and cooperative. LINE: No evidence of infection Assessment and Plan - Plan Impression (+) Bc with GPC, ?real or contaminant - prob due to abscess in his back Abscess in L upper back Fevers, ?hyperthermia due to exposure, due to infection - better renal insufficiency leukocytosis better Recommendation Repeat BC Follow C/S Continue IV vanco - pharmacy doing dosing Also on Zosyn - if nothing else on C/S, will D/C Follow temps Monitor progress OR plans today I will determine course of Abx once work-up is completed
--- NOTE | 2018-08-27 11:53 | P.PNIM ---
Subjective Interval history: Patient very upset about not being able to eat today. Denies any chest pain shortness of breath. Reports pain from abscess site has improved. Physical Exam Vital signs: Vital Signs 08/26/18 12:00 08/26/18 16:00 08/26/18 20:00 Temperature 98.2 F 98.3 F 99.5 F Pulse Rate 63 60 68 Respiratory Rate 20 20 20 Blood Pressure 110/61 114/66 106/64 Pulse Oximetry 97 97 99 08/26/18 20:48 08/27/18 00:00 08/27/18 04:00 Temperature 98.5 F 98.3 F Pulse Rate 66 55 L Respiratory Rate 20 18 Blood Pressure 140/88 118/58 L Pulse Oximetry 97 96 99 08/27/18 07:55 08/27/18 08:00 Temperature 98.1 F Pulse Rate 59 L Respiratory Rate 20 Blood Pressure 168/81 H Pulse Oximetry 97 99 Intake & Output 08/26/18 08/27/18 08/27/18 18:59 06:59 18:59 Intake Total 2750 / 2750 3312.5 / 3312.5 1050 / 1050 Output Total 200 / 200 Balance 2550 / 2550 3312.5 / 3312.5 1050 / 1050 Weight 87.7 kg Intake: IV 2150 / 2150 3312.5 / 3312.5 1050 / 1050 NS Inj 1,000 ML @ 250 mls/hr IV 2000 / 2000 3000 / 3000 1000 / 1000 .CONT .Q4H RAVINDRA Rx#:[id number] Zosyn 3.375 GM Premix 50 ML @ 150 / 150 50 / 50 50 / 50 100 mls/hr IV.SIG Q6H RAVINDRA Rx#: [id number] Vancomycin Inj 1,250 MG In NS 262.5 / 262.5 Inj 250 ML @ 250 mls/hr IV.SIG Q24H RAVINDRA Rx#:[id number] Oral 600 / 600 Output: Urine 200 / 200 Other: # Voids 1 Date of Last Bowel Movement 08/25/18 # Bowel Movements 1 Narrative: GENERAL: Patient sitting in bed. Appears comfortable. SKIN: Warm and dry. HEAD: Normocephalic. EYES: No scleral icterus. No injection or drainage. NECK: Supple, trachea midline. No JVD. CARDIOVASCULAR: Regular rate and rhythm without murmurs, gallops, or rubs. RESPIRATORY: Breath sounds equal bilaterally. No accessory muscle use. GASTROINTESTINAL: Abdomen soft, non-tender, nondistended. MUSCULOSKELETAL: No cyanosis, or edema. Abscess wound dressed clean dry and intact. Bilateral feet with ulcers unchanged from yesterday. BACK: Nontender without obvious deformity. No CVA tenderness. - Urinary Catheter Management Indwelling Urethral Catheter Cath placed during this visit: yes, but has since been removed by the nurse Reason for continuing: Hourly intake/output Insertion date: 08/25/18 Insertion time: 13:16 Removal date: 08/26/18 Removal time: 04:05 Results - Labs CBC & Chem 7: 08/27/18 06:12 08/27/18 06:12 Laboratory Results - last 24 hr 08/26/18 08/26/18 08/26/18 12:35 17:32 20:08 WBC RBC Hgb Hct MCV MCH MCHC RDW Plt Count MPV Prelim Diff (Auto) Neut % (Auto) Lymph % (Auto) [place] % (Auto) Eos % (Auto) Baso % (Auto) Neut # (Auto) Lymph # (Auto) [place] # (Auto) Eos # (Auto) Baso # (Auto) WBC Differential Diff Scan Differential Comment Platelet Estimate Platelet Morphology Sodium Potassium Chloride Carbon Dioxide Anion Gap BUN Creatinine Estimated GFR POC Glucose 150 H 132 H 106 Random Glucose Calcium Phosphorus Magnesium Total Creatine Kinase CK-MB (CK-2) CK-MB (CK-2) % Albumin 08/27/18 08/27/18 06:12 06:12 WBC 6.8 RBC 3.39 L Hgb 10.0 L Hct 29.5 L MCV 87.1 MCH 29.6 MCHC 33.9 RDW 13.1 Plt Count 98 L MPV 9.5 Prelim Diff (Auto) Slide review pending Neut % (Auto) 72.4 H Lymph % (Auto) 15.0 [place] % (Auto) 7.2 Eos % (Auto) 4.7 H Baso % (Auto) 0.7 Neut # (Auto) 4.9 Lymph # (Auto) 1.0 [place] # (Auto) 0.5 Eos # (Auto) 0.3 Baso # (Auto) 0.1 WBC Differential . Diff Scan Auto diff confirmed Differential Comment . Platelet Estimate Low L Platelet Morphology Normal Sodium 147 H Potassium 4.2 Chloride 113 H Carbon Dioxide 24.1 Anion Gap 10 BUN 17 Creatinine 1.56 H Estimated GFR 46 L POC Glucose Random Glucose 165 H Calcium 7.5 L Phosphorus 2.5 D Magnesium 2.0 Total Creatine Kinase 1705 H CK-MB (CK-2) 4.2 H CK-MB (CK-2) % 0.2 Albumin 2.1 L Microbiology 08/26/18 14:10 Blood - Peripheral Aerobic Blood Culture - Preliminary No growth in 1 day 08/26/18 14:10 Blood - Peripheral Anaerobic Blood Culture - Preliminary No growth in 1 day 08/26/18 14:15 Blood - Peripheral Aerobic Blood Culture - Preliminary No growth in 1 day 08/26/18 14:15 Blood - Peripheral Anaerobic Blood Culture - Preliminary No growth in 1 day 08/25/18 13:55 Blood - Peripheral Aerobic Blood Culture - Final Staphylococcus coag negative 08/25/18 13:55 Blood - Peripheral Anaerobic Blood Culture - Preliminary No growth in 2 days 08/25/18 13:55 Blood - Peripheral Aerobic Blood Culture - Preliminary Staphylococcus coag negative 08/25/18 13:55 Blood - Peripheral Anaerobic Blood Culture - Preliminary gram positive cocci 08/25/18 13:30 Catheterized Urine Urine Culture - Final No growth in 48 hours Assessment and Plan - Assessment (1) Hyperthermia Code(s): R50.9 - Fever, unspecified Status: Acute (2) Sepsis Code(s): A41.9 - Sepsis, unspecified organism Status: Acute (3) Soft tissue abscess Code(s): L02.91 - Cutaneous abscess, unspecified Status: Acute (4) Diabetes mellitus Code(s): E11.9 - Type 2 diabetes mellitus without complications Status: Acute - Plan Mr. Anne is a pleasant 58 year old male with a history of diabetes mellitus who was brought to the hospital by EMS with altered mental status, GCS 5 and temp 106.7 after he was found at the side of the road in the sun. //Hyperthermia - Possibly heat stroke. His condition improved with normal saline infusion. - CK 304, will check again this afternoon. //Sepsis (Fever, WBC over 17K, lactic acid 3.2, probable infection skin abscess) . //Left upper back skin abscess //Gram-positive bacteremia. - We will obtain an ultrasound study. - Empirically, we will start Vancomycin and Zosyn. - Blood cultures pending = 08/26. Gram-positive bacteremia today. Repeat blood cultures, check echocardiogram, consult infectious disease. Possible sources include back abscess as well as bilateral foot ulcers. Continue IV antibiotics. General surgery consulted. Appreciate assistance for I&D today. = 08/27. Blood cultures with coag negative staph. Repeat blood cultures from - to date. Appreciate general surgery assistance. Continue broad-spectrum antibiotics as per infectious disease. //Bilateral diabetic foot ulcers Continue IV antibiotics. Consult podiatry. = 08/27. Follow-up podiatry recommendations. //Diabetes mellitus //Diabetes retinopathy //Diabetic peripheral neuropathy -Start Levemir 15 units QHS, sliding scale insulin and pre-meal insulin. -May consider Gabapentin once creatinine improves. = Blood sugars acceptable. Continue to monitor. //Elevated CK. CK up to 2227. Continue IV fluids. Continue to monitor. //Acute kidney injury -Creatinine 3.1 on admission. Likely due to volume depletion. -Will provide aggressive hydration with NS 200cc/hour. -Repeat BMP, Lactic acid, Total CK in the afternoon today and labs in the AM. = Creatinine 2.0, improving. Continue IV fluids. Discharge Planning: Pending improvement. Difficult discharge as patient is homeless with bacteremia
[2018-08-27] MEDS: Sodium Bicarbonate 8.4% Inj 75 MEQ in Sod Chloride 0.9% Inj 925 ML IV.CONT SCH ×2 (15:32→21:42)
[2018-08-27] MEDS ORDERED: Chlorhexidine Gluconate 2% 1 Pack (2 Cloths) TOPICAL ONE (17:30)
[2018-08-27] MEDS ORDERED: Metoprolol Tartrate 25 MG Tablet PO ONE (17:30)
[2018-08-27] MEDS ORDERED: Lidocaine PF 1% Inj 5 ML Syringe OTHER ONE (17:30)
[2018-08-27] MEDS ORDERED: Succinylcholine Inj 100 MG/5 ML Syringe IV.PUSH ONE (17:30)
[2018-08-27] MEDS ORDERED: Sodium Chlor 0.9% Inj 500 ML IV.CONT ONE (17:30)
--- NOTE | 2018-08-27 18:58 | P.OP ---
Date of procedure: 08/27/18 Procedure: 1. Incision and drainage left upper back abscess 2. Debridement 25 cm skin and subcutaneous tissue 3. Negative pressure dressing placement Anesthesia: GETA Surgeon: Eduardo Gonsalez MD [employer] Teacher: Apple Solomon MS 3 Estimated blood loss (mL): 30 IV fluids (mL): 600 Pathology: other (Gram stain and C&S to microbiology) Operation and Findings: Patient was taken to the operating room after marking the site. He was placed on the operating table in supine position. After general endotracheal anesthesia was achieved, the patient was placed in the right lateral decubitus position. The left shoulder was shaved, prepped and draped. Time-out was taken , confirming the correct patient, site, and procedure to be performed. An ellipse of skin was incised including necrotic skin. A total of 25 cm of skin and subcutaneous tissue was debrided and removed sharply. Purulent material was immediately encountered and this was sent for culture and sensitivity. The wound was made hemostatic and then irrigated copiously with antibiotic irrigation. At the completion of the procedure, the wound was hemostatic. A small VAC sponge was then cut to size to fit the wound. This was then applied and suction applied. Patient was then rolled back into the supine position, extubated and taken back to the recovery room in stable condition. Sponge, needle, and instrument counts were reported to be correct. The patient tolerated the procedure well.
[2018-08-27] MEDS ORDERED: fentaNYL Citrate Inj 100 MCG/2 ML Ampul ONE (19:07)
--- NOTE | 2018-08-27 20:44 | P.PNPOD ---
Subjective Interval history: Attempted to visit patient at 16.30 but was in the OR at the time. Will reattempt on 08/28/18 pm. Physical Exam Vital signs: Vital Signs 08/26/18 20:48 08/27/18 00:00 08/27/18 04:00 Temperature 98.5 F 98.3 F Pulse Rate 66 55 L Respiratory Rate 20 18 Blood Pressure 140/88 118/58 L Pulse Oximetry 97 96 99 08/27/18 07:55 08/27/18 08:00 08/27/18 12:00 Temperature 98.1 F 98.9 F Pulse Rate 59 L 54 L Respiratory Rate 20 20 Blood Pressure 168/81 H 137/82 Pulse Oximetry 97 99 99 08/27/18 16:00 08/27/18 19:00 08/27/18 19:25 Temperature 98.3 F 98.0 F Pulse Rate 55 L 66 60 Respiratory Rate 24 20 18 Blood Pressure 150/84 H 135/70 141/77 H Pulse Oximetry 97 99 94 L Intake & Output 08/27/18 08/27/18 08/28/18 06:59 18:59 06:59 Intake Total 3312.5 / 3312.5 1750 / 1750 Output Total 30 / 30 Balance 3312.5 / 3312.5 1720 / 1720 Weight 87.7 kg Intake: IV 3312.5 / 3312.5 1150 / 1150 NS Inj 1,000 ML @ 250 mls/hr IV 3000 / 3000 1000 / 1000 .CONT .Q4H RAVINDRA Rx#:[id number] Zosyn 3.375 GM Premix 50 ML @ 50 / 50 150 / 150 100 mls/hr IV.SIG Q6H RAVINDRA Rx#: [id number] Vancomycin Inj 1,250 MG In NS 262.5 / 262.5 Inj 250 ML @ 250 mls/hr IV.SIG Q24H RAVINDRA Rx#:[id number] Anesthesia Amount 600 / 600 Output: Estimated Blood Loss 30 / 30 Other: Mode Setting Left Upper Back Continuous Medications and Allergies Active Medications: Active Medications Acetaminophen (Tylenol) 650 mg PO Q4H PRN PRN Reason: Fever, headache, pain 1-4 Hydrocodone Bitart/Acetaminophen ([place] 5/325) 1 tab PO Q6H PRN PRN Reason: Acute Pain Al Hydroxide/Mg Hydroxide (Milk Of Magnesia Liq) 30 ml PO Q12H PRN PRN Reason: Mild Constipation Bisacodyl (Dulcolax Supp) 10 mg RECTAL DAILY PRN PRN Reason: SEVERE CONSITIPATION Dextrose (D50w Vial) 50 ml IV.PUSH UNSCH PRN PRN Reason: PER HYPOGLYCEMIA PROTOCOL Enoxaparin Sodium (Lovenox Inj) 30 mg SQ DAILY [facility] Last Admin: 08/26/18 08:30 Dose: 30 mg Glucagon (Glucagon Inj) 1 mg OTHER PRN PRN PRN Reason: for Hypoglycemia Protocol Piperacillin/Tazobactam/Dextrose (Zosyn 3.375 Gm Premix) 50 mls @ 100 mls/hr IV.SIG Q6H [facility] Last Infusion: 08/27/18 18:51 Dose: Infused Vancomycin HCl 1,250 mg/ (Sodium Chloride) 262.5 mls @ 250 mls/hr IV.SIG Q24H RAVINDRA Last Infusion: 08/26/18 19:10 Dose: Infused Sodium Bicarbonate 75 meq/ (Sodium Chloride) 1,000 mls @ 125 mls/hr IV.CONT .Q8H RAVINDRA Last Admin: 08/27/18 15:32 Dose: 125 mls/hr Lactated Ringer's (Lr 1000 Ml Inj) 1,000 mls @ 30 mls/hr IV.CONT .Q24H ONE Stop: 08/28/18 17:29 Last Admin: 08/27/18 17:29 Dose: 30 mls/hr Sodium Chloride (Ns Inj) 500 mls @ 30 mls/hr IV.CONT .[id number] ONE Stop: 08/28/18 10:09 Insulin Aspart (Novolog Insulin Correctional Sugar Inj) 0 unit SQ ACHS [facility]; Protocol Last Admin: 08/27/18 16:46 Dose: Not Given Insulin Aspart (Novolog Inj) 5 units SQ TIDAC [facility] Last Admin: 08/27/18 16:45 Dose: Not Given Insulin Detemir (Levemir Inj) 15 unit SQ HS [facility] Last Admin: 08/26/18 20:37 Dose: 15 unit Lactulose (Lactulose Liq) 30 ml PO DAILY PRN PRN Reason: SEVERE CONSITIPATION Miscellaneous Information ([facility] Ordered Lab Info) 0 each OTHER ONCE ONE Stop: 08/28/18 17:46 Morphine Sulfate (Morphine Inj) 2 mg IV.PUSH Q4H PRN PRN Reason: PAIN NOT RELIEVED W LORTAB Ondansetron HCl (Zofran Inj) 4 mg IV.PUSH Q6H PRN PRN Reason: NAUSEA OR VOMITING Pharmacy Profile Note (Vancomycin Consult Pharmacy) 1 each OTHER UNSCH PRN PRN Reason: Pharmacy to dose Potassium Chloride (Klor-Con 10) 30 meq PO BID [facility] Stop: 08/28/18 20:59 Last Admin: 08/27/18 10:24 Dose: 30 meq Sennosides (Senokot) 17.2 mg PO Q12H PRN PRN Reason: Moderate Constipation Sodium Chloride (Ns Flush) 2 ml IV.FLUSH BID [facility] Last Admin: 08/27/18 10:26 Dose: 2 ml Sodium Chloride (Ns Flush) 2 ml IV.FLUSH PRN PRN PRN Reason: FLUSH AFTER USING IV ACCESS Allergies Allergy/AdvReac Type Severity Reaction Status Date / Time No Known Allergies Allergy Unverified 08/25/18 13:09 Home Medications Medication Instructions Recorded Confirmed Type No Known Home Medications 08/25/18 08/25/18 History Results - Labs CBC & Chem 7: 08/27/18 06:12 08/27/18 06:12 Laboratory Results - last 24 hr 08/25/18 08/27/18 08/27/18 13:30 06:12 06:12 WBC 6.8 RBC 3.39 L Hgb 10.0 L Hct 29.5 L MCV 87.1 MCH 29.6 MCHC 33.9 RDW 13.1 Plt Count 98 L MPV 9.5 Prelim Diff (Auto) Slide review pending Neut % (Auto) 72.4 H Lymph % (Auto) 15.0 [place] % (Auto) 7.2 Eos % (Auto) 4.7 H Baso % (Auto) 0.7 Neut # (Auto) 4.9 Lymph # (Auto) 1.0 [place] # (Auto) 0.5 Eos # (Auto) 0.3 Baso # (Auto) 0.1 WBC Differential . Diff Scan Auto diff confirmed Differential Comment . Platelet Estimate Low L Platelet Morphology Normal Sodium 147 H Potassium 4.2 Chloride 113 H Carbon Dioxide 24.1 Anion Gap 10 BUN 17 Creatinine 1.56 H Estimated GFR 46 L POC Glucose Random Glucose 165 H Calcium 7.5 L Phosphorus 2.5 D Magnesium 2.0 Total Creatine Kinase 1705 H CK-MB (CK-2) 4.2 H CK-MB (CK-2) % 0.2 Albumin 2.1 L Urine Myoglobin 44 H 08/27/18 08/27/18 08/27/18 11:52 16:32 19:17 WBC RBC Hgb Hct MCV MCH MCHC RDW Plt Count MPV Prelim Diff (Auto) Neut % (Auto) Lymph % (Auto) [place] % (Auto) Eos % (Auto) Baso % (Auto) Neut # (Auto) Lymph # (Auto) [place] # (Auto) Eos # (Auto) Baso # (Auto) WBC Differential Diff Scan Differential Comment Platelet Estimate Platelet Morphology Sodium Potassium Chloride Carbon Dioxide Anion Gap BUN Creatinine Estimated GFR POC Glucose 149 H 156 H 118 H Random Glucose Calcium Phosphorus Magnesium Total Creatine Kinase CK-MB (CK-2) CK-MB (CK-2) % Albumin Urine Myoglobin Microbiology 08/26/18 14:10 Blood - Peripheral Aerobic Blood Culture - Preliminary No growth in 1 day 08/26/18 14:10 Blood - Peripheral Anaerobic Blood Culture - Preliminary No growth in 1 day 08/26/18 14:15 Blood - Peripheral Aerobic Blood Culture - Preliminary No growth in 1 day 08/26/18 14:15 Blood - Peripheral Anaerobic Blood Culture - Preliminary No growth in 1 day 08/25/18 13:55 Blood - Peripheral Aerobic Blood Culture - Final Staphylococcus coag negative 08/25/18 13:55 Blood - Peripheral Anaerobic Blood Culture - Preliminary No growth in 2 days 08/25/18 13:55 Blood - Peripheral Aerobic Blood Culture - Preliminary Staphylococcus coag negative 08/25/18 13:55 Blood - Peripheral Anaerobic Blood Culture - Preliminary gram positive cocci 08/25/18 13:30 Catheterized Urine Urine Culture - Final No growth in 48 hours
[2018-08-27] MEDS ORDERED: Morphine Inj 4 MG/ML Vial IV.PUSH PRN (20:45)
[2018-08-27] MEDS: Vancomycin Inj 1,250 MG in Sodium Chlor 0.9% Inj 250 ML IV.SIG SCH (21:00)
[2018-08-27] MEDS: Insulin Detemir Inj 1,000 UNIT/10 ML Vial SQ SCH (21:27)
[2018-08-28] MEDS: Piperacil/Tazo 3.375 GM Premix 50 ML IV.SIG SCH ×3 (05:45→17:47)
[2018-08-28] MEDS: Sodium Bicarbonate 8.4% Inj 75 MEQ in Sod Chloride 0.9% Inj 925 ML IV.CONT SCH ×2 (05:47→15:42)
[2018-08-28] MEDS: Insulin NovoLOG Aspart Correctional Sugar Inj SQ SCH ×4 (09:37→21:22)
[2018-08-28] MEDS: Sodium Chloride 0.9% 2 ML Flush BID IV.FLUSH SCH ×2 (09:40→21:21)
--- NOTE | 2018-08-28 13:55 | P.PNGS ---
Addendum entered and electronically signed by OLIVA Rossi 08/28/18 14: 34: statement "Patient ate a chicken sandwich at 3:30PM according to him; as he is not septic, will plan for surgery tomorrow" was carried over from prior note--- not for today's note. Original Note: Subjective Interval history: Resting in bed No issues Physical Exam Vital signs: Vital Signs 08/27/18 16:00 08/27/18 19:00 08/27/18 19:25 Temperature 98.3 F 98.0 F Pulse Rate 55 L 66 60 Respiratory Rate 24 20 18 Blood Pressure 150/84 H 135/70 141/77 H Pulse Oximetry 97 99 94 L 08/27/18 19:43 08/28/18 00:00 08/28/18 04:00 Temperature 98.2 F 98.9 F 96.8 F L Pulse Rate 60 58 L 53 L Respiratory Rate 20 20 20 Blood Pressure 117/75 149/74 H 135/61 Pulse Oximetry 98 60 L 08/28/18 08:00 08/28/18 12:00 Temperature 98.5 F 98.7 F Pulse Rate 58 L 53 L Respiratory Rate 21 21 Blood Pressure 164/77 H 185/88 H Pulse Oximetry 98 98 Intake & Output 08/27/18 08/28/18 08/28/18 18:59 06:59 18:59 Intake Total 1750 / 1750 1762.5 / 1762.5 50 / 50 Output Total 30 / 30 Balance 1720 / 1720 1762.5 / 1762.5 50 / 50 Weight 94.1 kg Intake: IV 1150 / 1150 1362.5 / 1362.5 50 / 50 NS Inj 1,000 ML @ 250 mls/hr IV 1000 / 1000 .CONT .Q4H RAVINDRA Rx#:[id number] Sodium Bicarbonate 8.4% Inj 75 1000 / 1000 MEQ In NS Inj 925 ML @ 125 mls/ hr IV.CONT .Q8H RAVINDRA Rx#: [id number] Zosyn 3.375 GM Premix 50 ML @ 150 / 150 100 / 100 50 / 50 100 mls/hr IV.SIG Q6H RAVINDRA Rx#: [id number] Vancomycin Inj 1,250 MG In NS 262.5 / 262.5 Inj 250 ML @ 250 mls/hr IV.SIG Q24H RAVINDRA Rx#:[id number] Oral 400 / 400 Anesthesia Amount 600 / 600 Output: Estimated Blood Loss 30 / 30 Other: Mode Setting Left Upper Back Continuous Continuous Date of Last Bowel Movement 08/28/18 # Bowel Movements 3 Narrative: Alert and awake Upper back Wound Vac in place with good seal - Urinary Catheter Management Indwelling Urethral Catheter Cath placed during this visit: yes, but has since been removed by the nurse Reason for continuing: Hourly intake/output Insertion date: 08/25/18 Insertion time: 13:16 Removal date: 08/26/18 Removal time: 04:05 Results - Labs 08/30/18 05:29 08/31/18 13:35 Laboratory Results - last 24 hr 08/25/18 08/27/18 08/27/18 13:30 16:32 19:17 POC Glucose 156 H 118 H Urine Myoglobin 44 H 08/27/18 08/28/18 08/28/18 20:51 08:26 11:32 POC Glucose 133 H 159 H 235 H Urine Myoglobin - Imaging Imaging: ITS Impressions Soft Tissue Ultrasound 08/25/18 00:00 CONCLUSION: 1. Complex hypoechoic masslike structure which is nonspecific. This could represent a hematoma. Chest X-Ray 08/25/18 13:09 CONCLUSION: Right IJ central venous catheter in good position. The lungs are clear. Head CT 08/25/18 13:09 CONCLUSION: 1. Negative CT Head non contrast. . Assessment and Plan - Assessment (1) Soft tissue abscess Code(s): L02.91 - Cutaneous abscess, unspecified Status: Acute Plan: 58 year old male with upper back abscess -POD1 I&D of upper back abscess with Wound Vac placement -Follow cultures ---ID following -Plan to remove Wound Vac Sunday and likely transition to wet to dry dressings -Discussed plan with Dr. Mahoney who was also at the patient's bedside Stable; wound around VAC sponge with tejal appearance (not erythema) The exam, history, and the medical decision-making described in the above note were completed with the assistance of the mid-level provider. I reviewed and agree with the findings presented. I attest that I had a [id number] encounter with the patient on the same day, and personally performed and documented my assessment and findings in the medical record. - Plan 58 year old male with upper back abscess -Plan for OR this evening for I&D and possible Wound Vac placement -Obtain consents -NPO -Procedure explained in detail including risks and benefits -Plan also discussed with Dr. Mahoney -May benefit from Podiatry consultation for ulcers on bilateral feet -Thank you for this consult; We will continue to follow Patient ate a chicken sandwich at 3:30PM according to him; as he is not septic, will plan for surgery tomorrow The exam, history, and the medical decision-making described in the above note were completed with the assistance of the mid-level provider. I reviewed and agree with the findings presented. I attest that I had a [id number] encounter with the patient on the same day, and personally performed and documented my assessment and findings in the medical record.
--- NOTE | 2018-08-28 15:52 | P.PNIM ---
Subjective Interval history: Patient says he feeling right. Denies any chest pain or shortness of breath. Denies nausea or vomiting. Physical Exam Vital signs: Vital Signs 08/27/18 16:00 08/27/18 19:00 08/27/18 19:25 Temperature 98.3 F 98.0 F Pulse Rate 55 L 66 60 Respiratory Rate 24 20 18 Blood Pressure 150/84 H 135/70 141/77 H Pulse Oximetry 97 99 94 L 08/27/18 19:43 08/28/18 00:00 08/28/18 04:00 Temperature 98.2 F 98.9 F 96.8 F L Pulse Rate 60 58 L 53 L Respiratory Rate 20 20 20 Blood Pressure 117/75 149/74 H 135/61 Pulse Oximetry 98 60 L 08/28/18 08:00 08/28/18 12:00 Temperature 98.5 F 98.7 F Pulse Rate 58 L 62 Respiratory Rate 21 21 Blood Pressure 164/77 H 185/88 H Pulse Oximetry 98 98 Intake & Output 08/27/18 08/28/18 08/28/18 18:59 06:59 18:59 Intake Total 1750 / 1750 1762.5 / 1762.5 1050 / 1050 Output Total 30 / 30 Balance 1720 / 1720 1762.5 / 1762.5 1050 / 1050 Weight 94.1 kg Intake: IV 1150 / 1150 1362.5 / 1362.5 1050 / 1050 NS Inj 1,000 ML @ 250 mls/hr IV 1000 / 1000 .CONT .Q4H RAVINDRA Rx#:[id number] Sodium Bicarbonate 8.4% Inj 75 1000 / 1000 1000 / 1000 MEQ In NS Inj 925 ML @ 125 mls/ hr IV.CONT .Q8H RAVINDRA Rx#: [id number] Zosyn 3.375 GM Premix 50 ML @ 150 / 150 100 / 100 50 / 50 100 mls/hr IV.SIG Q6H RAVINDRA Rx#: [id number] Vancomycin Inj 1,250 MG In NS 262.5 / 262.5 Inj 250 ML @ 250 mls/hr IV.SIG Q24H RAVINDRA Rx#:[id number] Oral 400 / 400 Anesthesia Amount 600 / 600 Output: Estimated Blood Loss 30 / 30 Other: Mode Setting Left Upper Back Continuous Continuous Date of Last Bowel Movement 08/28/18 # Bowel Movements 3 Narrative: GENERAL: Patient lying in bed. Appears comfortable. Alert and oriented x3. SKIN: Warm and dry. HEAD: Normocephalic. EYES: No scleral icterus. No injection or drainage. NECK: Supple, trachea midline. No JVD. CARDIOVASCULAR: Regular rate and rhythm without murmurs, gallops, or rubs. RESPIRATORY: Breath sounds equal bilaterally. No accessory muscle use. Wound VAC to left posterior chest abscess wound. GASTROINTESTINAL: Abdomen soft, non-tender, nondistended. MUSCULOSKELETAL: No cyanosis, or edema. Bilateral foot ulcers as before. BACK: Nontender without obvious deformity. No CVA tenderness. - Urinary Catheter Management Indwelling Urethral Catheter Cath placed during this visit: yes, but has since been removed by the nurse Reason for continuing: Hourly intake/output Insertion date: 08/25/18 Insertion time: 13:16 Removal date: 08/26/18 Removal time: 04:05 Results - Labs CBC & Chem 7: 08/27/18 06:12 08/27/18 06:12 Laboratory Results - last 24 hr 08/27/18 08/27/18 08/27/18 16:32 19:17 20:51 POC Glucose 156 H 118 H 133 H 08/28/18 08/28/18 08:26 11:32 POC Glucose 159 H 235 H Microbiology 08/27/18 18:36 Abscess - Back Gram Stain - Final 08/27/18 18:36 Abscess - Back Wound Culture - Preliminary Results Pending 08/25/18 13:55 Blood - Peripheral Aerobic Blood Culture - Preliminary Staphylococcus coag negative 08/25/18 13:55 Blood - Peripheral Anaerobic Blood Culture - Preliminary Staphylococcus coag negative 08/26/18 14:10 Blood - Peripheral Aerobic Blood Culture - Preliminary No growth in 2 days 08/26/18 14:10 Blood - Peripheral Anaerobic Blood Culture - Preliminary No growth in 2 days 08/26/18 14:15 Blood - Peripheral Aerobic Blood Culture - Preliminary No growth in 2 days 08/26/18 14:15 Blood - Peripheral Anaerobic Blood Culture - Preliminary No growth in 2 days 08/25/18 13:55 Blood - Peripheral Aerobic Blood Culture - Final Staphylococcus coag negative 08/25/18 13:55 Blood - Peripheral Anaerobic Blood Culture - Preliminary No growth in 3 days 08/27/18 18:36 Abscess - Back Fungal Smear - Final No fungal elements seen Assessment and Plan - Assessment (1) Hyperthermia Code(s): R50.9 - Fever, unspecified Status: Acute (2) Sepsis Code(s): A41.9 - Sepsis, unspecified organism Status: Acute (3) Soft tissue abscess Code(s): L02.91 - Cutaneous abscess, unspecified Status: Acute (4) Diabetes mellitus Code(s): E11.9 - Type 2 diabetes mellitus without complications Status: Acute - Plan Mr. Anne is a pleasant 58 year old male with a history of diabetes mellitus who was brought to the hospital by EMS with altered mental status, GCS 5 and temp 106.7 after he was found [place] the side of the road in the sun. //Hyperthermia - Possibly heat stroke. His condition improved with normal saline infusion. - CK 304, will check again this afternoon. //Sepsis (Fever, WBC over 17K, lactic acid 3.2, probable infection skin abscess) . //Left upper back skin abscess //Gram-positive bacteremia. - We will obtain an ultrasound study. - Empirically, we will start Vancomycin and Zosyn. - Blood cultures pending = 08/26. Gram-positive bacteremia today. Repeat blood cultures, check echocardiogram, consult infectious disease. Possible sources include back abscess as well as bilateral foot ulcers. Continue IV antibiotics. General surgery consulted. Appreciate assistance for I&D today. = 08/27. Blood cultures with coag negative staph. Repeat blood cultures from - to date. Appreciate general surgery assistance. Continue broad-spectrum antibiotics as per infectious disease. = 08/27. Continue IV antibiotics as per infectious disease. Await sensitivities of blood cultures from admission. Continue with wound VAC. IV antibiotics as per infectious disease. Appreciate security system sales consultant assistance. //Bilateral diabetic foot ulcers Continue IV antibiotics. Consult podiatry. = 08/28. Follow-up podiatry recommendations. //Diabetes mellitus //Diabetes retinopathy //Diabetic peripheral neuropathy -Start Levemir 15 units QHS, sliding scale insulin and pre-meal insulin. -May consider Gabapentin once creatinine improves. = Blood sugars acceptable. Continue to monitor. = Improving. Down to 1700 yesterday. //Elevated blood pressures. Systolic blood pressures in the 180s. Will discontinue IV fluid for now. Follow-up labs. //Elevated CK. CK up to 7. Continue IV fluids. Continue to monitor. //Acute kidney injury -Creatinine 3.1 on admission. Likely due to volume depletion. -Will provide aggressive hydration with NS 200cc/hour. -Repeat BMP, Lactic acid, Total CK in the afternoon today and labs in the AM. = Creatinine 2.0, improving. Continue IV fluids. Discharge Planning: Pending improvement. Difficult discharge as patient is homeless with bacteremia
--- NOTE | 2018-08-28 16:31 | P.PNID ---
Subjective Remarks: Patient is a 58-year-old male, brought into the hospital after [place]. Patient could not really remember what happened and how he ended up on the day H. He was apparently out in the road in the sun. He was given fluids in the ED, and his mental status improved. His temperature was 106.7 when he came in, white count was 17,000. CT of the head was negative. Patient was found to have a complex fluid in his back. He could not remember how he got it. Patient however is homeless. Temperatures are better. His WBC is down to 11. Blood cultures are now reported as growing gram-positive cocci. Patient also had renal insufficiency, and his creatinine is down to 2. Patient denies any respiratory complaint. He has not had any fever chills or sweats prior to coming into the hospital. He denies any abdominal pain, nausea or vomiting. Denies any urinary complaints. Patient denies using IV drugs. Infectious disease consultation has been requested to evaluate the patient with positive blood culture. Notes reviewed [facility] OR done yesterday BC (+) has Coag Neg Staph Abscess C/S pending Creatinine better WBC lower Antibiotics: Zosyn Vancomycin Lines: PIV Past Medical History: Diabetes Allergies/Adverse Reactions: Allergies No Known Allergies Allergy (Unverified 08/25/18 13:09) Objective Vital Signs 08/27/18 19:00 08/27/18 19:25 08/27/18 19:43 Temperature 98.0 F 98.2 F Pulse Rate 66 60 60 Respiratory Rate 20 18 20 Blood Pressure 135/70 141/77 H 117/75 Pulse Oximetry 99 94 L 08/28/18 00:00 08/28/18 04:00 08/28/18 08:00 Temperature 98.9 F 96.8 F L 98.5 F Pulse Rate 58 L 53 L 58 L Respiratory Rate 20 20 21 Blood Pressure 149/74 H 135/61 164/77 H Pulse Oximetry 98 60 L 98 08/28/18 12:00 Temperature 98.7 F Pulse Rate 62 Respiratory Rate 21 Blood Pressure 185/88 H Pulse Oximetry 98 Intake & Output 08/27/18 08/28/18 08/28/18 18:59 06:59 18:59 Intake Total 1750 / 1750 1762.5 / 1762.5 1050 / 1050 Output Total 30 / 30 Balance 1720 / 1720 1762.5 / 1762.5 1050 / 1050 Weight 94.1 kg Intake: IV 1150 / 1150 1362.5 / 1362.5 1050 / 1050 NS Inj 1,000 ML @ 250 mls/hr IV 1000 / 1000 .CONT .Q4H RAVINDRA Rx#:[id number] Sodium Bicarbonate 8.4% Inj 75 1000 / 1000 1000 / 1000 MEQ In NS Inj 925 ML @ 125 mls/ hr IV.CONT .Q8H RAVINDRA Rx#: [id number] Zosyn 3.375 GM Premix 50 ML @ 150 / 150 100 / 100 50 / 50 100 mls/hr IV.SIG Q6H RAVINDRA Rx#: [id number] Vancomycin Inj 1,250 MG In NS 262.5 / 262.5 Inj 250 ML @ 250 mls/hr IV.SIG Q24H RAVINDRA Rx#:[id number] Oral 400 / 400 Anesthesia Amount 600 / 600 Output: Estimated Blood Loss 30 / 30 Other: Mode Setting Left Upper Back Continuous Continuous Date of Last Bowel Movement 08/28/18 # Bowel Movements 3 08/27/18 18:36 Abscess - Back Gram Stain - Final 08/27/18 18:36 Abscess - Back Wound Culture - Preliminary Results Pending 08/25/18 13:55 Blood - Peripheral Aerobic Blood Culture - Preliminary Staphylococcus coag negative 08/25/18 13:55 Blood - Peripheral Anaerobic Blood Culture - Preliminary Staphylococcus coag negative 08/26/18 14:10 Blood - Peripheral Aerobic Blood Culture - Preliminary No growth in 2 days 08/26/18 14:10 Blood - Peripheral Anaerobic Blood Culture - Preliminary No growth in 2 days 08/26/18 14:15 Blood - Peripheral Aerobic Blood Culture - Preliminary No growth in 2 days 08/26/18 14:15 Blood - Peripheral Anaerobic Blood Culture - Preliminary No growth in 2 days 08/25/18 13:55 Blood - Peripheral Aerobic Blood Culture - Final Staphylococcus coag negative 08/25/18 13:55 Blood - Peripheral Anaerobic Blood Culture - Preliminary No growth in 3 days 08/27/18 18:36 Abscess - Back Fungal Smear - Final No fungal elements seen 08/27/18 18:36 Abscess - Back Fungal Culture - Pending 08/27/18 18:36 Abscess - Back Acid Fast Bacilli Smear - Pending 08/27/18 18:36 Abscess - Back Mycobacterial Culture - Pending 08/25/18 13:30 Catheterized Urine Urine Culture - Final No growth in 48 hours Lab - Hematology Results 08/27/18 06:12 WBC 6.8 RBC 3.39 L Hgb 10.0 L Hct 29.5 L MCV 87.1 MCH 29.6 MCHC 33.9 RDW 13.1 Plt Count 98 L MPV 9.5 Prelim Diff (Auto) Slide review pending Neut % (Auto) 72.4 H Lymph % (Auto) 15.0 [place] % (Auto) 7.2 Eos % (Auto) 4.7 H Baso % (Auto) 0.7 Neut # (Auto) 4.9 Lymph # (Auto) 1.0 [place] # (Auto) 0.5 Eos # (Auto) 0.3 Baso # (Auto) 0.1 WBC Differential . Diff Scan Auto diff confirmed Differential Comment . Platelet Estimate Low L Platelet Morphology Normal Lab - Chemistry Results 08/26/18 08/26/18 08/27/18 17:32 20:08 06:12 Sodium 147 H Potassium 4.2 Chloride 113 H Carbon Dioxide 24.1 Anion Gap 10 BUN 17 Creatinine 1.56 H Estimated GFR 46 L POC Glucose 132 H 106 Random Glucose 165 H Calcium 7.5 L Phosphorus 2.5 D Magnesium 2.0 Total Creatine Kinase 1705 H CK-MB (CK-2) 4.2 H CK-MB (CK-2) % 0.2 Albumin 2.1 L 08/27/18 08/27/18 08/27/18 11:52 16:32 19:17 Sodium Potassium Chloride Carbon Dioxide Anion Gap BUN Creatinine Estimated GFR POC Glucose 149 H 156 H 118 H Random Glucose Calcium Phosphorus Magnesium Total Creatine Kinase CK-MB (CK-2) CK-MB (CK-2) % Albumin 08/27/18 08/28/18 08/28/18 20:51 08:26 11:32 Sodium Potassium Chloride Carbon Dioxide Anion Gap BUN Creatinine Estimated GFR POC Glucose 133 H 159 H 235 H Random Glucose Calcium Phosphorus Magnesium Total Creatine Kinase CK-MB (CK-2) CK-MB (CK-2) % Albumin Imaging: ITS Impressions Soft Tissue Ultrasound 08/25/18 00:00 CONCLUSION: 1. Complex hypoechoic masslike structure which is nonspecific. This could represent a hematoma. Chest X-Ray 09/30/18 13:09 CONCLUSION: Right IJ central venous catheter in good position. The lungs are clear. Head CT 08/25/18 13:09 CONCLUSION: 1. Negative CT Head non contrast. . Physical Exam: GENERAL: unkempt, awake and alert, not in respiratory distress. SKIN: Cool and dry. No generalized rash. HEAD: Atraumatic. Normocephalic. No temporal wasting, or tenderness. EYES: [place] conjunctiva. No petechia or hemorrhage. Pupils equal, round and reactive to light. Extraocular movements full and intact. No scleral icterus. No injection or drainage. EARS, NOSE AND THROAT: Mucous membranes pink and moist. No oral lesions noted. No exudate. No oral thrush. NECK: Trachea midline. Supple and not tender, no meningeal signs CARDIOVASCULAR: Regular rate and rhythm. No murmurs, rubs or gallops heard RESPIRATORY: Clear to auscultation. Breath sounds equal bilaterally. No rales , wheezing or rhonchi ABDOMEN: Soft, non-tender, nondistended. Bowel sounds present and normoactive. No guarding. No rebound. No organomegaly. BACK: There is a wound vac in place. EXTREMITIES: No clubbing, cyanosis, or edema. No joint effusion, has good ROM. No calf tenderness. Well perfused and warm. NEUROLOGICAL: Non-focal. PSYCHIATRIC: Normal affect, calm and cooperative. LINE: No evidence of infection Assessment and Plan - Plan Impression (+) BC with Coag Neg Staph, no final ID yet, ?real or contaminant - prob due to abscess in his back Abscess in L upper back, S/P I and D Fevers, ?hyperthermia due to exposure, due to infection - better renal insufficiency, better leukocytosis better Recommendation Follow C/S Continue IV vanco - pharmacy doing dosing Also on Zosyn - if nothing else on C/S, will D/C Follow temps Monitor progress
[2018-08-28] MEDS ORDERED: Pharmacy Ordered Lab Info OTHER ONE (17:45)
[2018-08-28 18:45] LABS: Calcium 8.2 mg/dL (8.5-10.1); Carbon Dioxide 26.4 meq/L (21.0-32.0); Potassium 4.3 meq/L (3.5-5.1)
[2018-08-28] MEDS: Vancomycin Inj 1,250 MG in Sodium Chlor 0.9% Inj 250 ML IV.SIG SCH (18:49)
[2018-08-28 19:00] LABS: Vancomycin,Trough 8.9 mcg/mL (5.0-10.0)
[2018-08-28 19:12] LABS: CKMB Percent 0.1 % (0.0-4.0); Creatine Kinase MB 1.4 ng/mL (0.5-3.6)
[2018-08-28] MEDS: Insulin Detemir Inj 1,000 UNIT/10 ML Vial SQ SCH (21:21)
--- NOTE | 2018-08-28 23:54 | MB ---
cc: Priti Lovelace DPM DATE: 08/28/2018 DATE OF CONSULTATION: 08/28/2018 REASON FOR CONSULTATION: Bilateral feet ulcers. HISTORY OF PRESENT ILLNESS: The patient is a 58-year-old male with a past medical history of DM, was found in a ditch and hypothermic. He was seen by general surgery for a large abscess to his back. REVIEW OF SYSTEMS: Unremarkable. PAST MEDICAL HISTORY: Diabetes. Tobacco history: Secondary. Relates social drinking. Denies alcohol abuse. MEDICATIONS: Per HPI. PHYSICAL EXAMINATION: Bilateral feet unkempt, dirty, subungual debris, nails 1 through 5 bilaterally. There is a subsecond metatarsal head ulcer 3 x 3 mm in depth. No bone or exposed tendon. Right dorsal hallux with a skin tear about 4 x 4 mm. There is no acute sign of infection or drainage. No pain on palpation. DP and PT palpable on the left. On the right side is diminished. SKIN: Warm to warm. NEUROLOGIC: Protective sensation grossly intact. Muscle strength is +5/5 of in all quadrants. LABORATORY DATA: WBC on 08/27/2018 is 6.8, RBC of 3.39, H and H 10.0 and 29.5. ASSESSMENT AND PLAN: 1. Bilateral ulcers. 2. Diabetes order blood flow studies to ensure vascular integrity distally. Wounds are relatively clean and healthy. He is unkempt, but with local wound care and some offloading, I expect to wounds to do well. He has been seen with Dr. Rivers as an outpatient, so he can followup as an outpatient with Dr. Rivers for local wound care. No further surgical intervention or intervention by podiatry. Orders placed for blood flow study and Santyl with dry sterile dressings daily. Priti Lovelace DPM SR/vinny , 09:16 PM , 09:22 PM
[2018-08-29] MEDS: Piperacil/Tazo 3.375 GM Premix 50 ML IV.SIG SCH ×4 (00:18→18:57)
[2018-08-29] MEDS: Vancomycin Inj 1,000 MG in Sodium Chlor 0.9% Inj 250 ML IV.SIG SCH ×2 (06:13→17:20)
[2018-08-29 08:45] LABS: Baso # (Auto) 0.1 th/mm3 (0.0-0.2); Baso % (Auto) 0.6 % (0.0-2.0); Eos # (Auto) 0.7 th/mm3 (0.0-0.4); Hematocrit 35.9 % (39.0-51.0); Hemoglobin 12.4 gm/dL (13.0-17.0); Lymph # (Auto) 1.4 th/mm3 (1.0-4.8); Lymph % (Auto) 15.9 % (9.0-44.0); Mean Corpuscular HGB Conc 34.6 % (32.0-36.0); Mean Corpuscular Hemoglobin 29.2 pg (27.0-34.0); Mean Corpuscular Volume 84.6 fL (80.0-100.0); Mean Platelet Volume 8.8 fL (7.0-11.0); Mono # (Auto) 0.6 th/mm3 (0.0-0.9); Mono % (Auto) 6.7 % (0.0-8.0); Neut # (Auto) 6.1 th/mm3 (1.8-7.7); Neut % (Auto) 68.8 % (16.0-70.0); Platelet Count 112 th/mm3 (150-450); Red Blood Count 4.24 mil/mm3 (4.50-5.90); Red Cell Distribution Width 13.3 % (11.6-17.2); White Blood Count 8.9 th/mm3 (4.0-11.0)
[2018-08-29 09:08] LABS: Albumin 2.5 g/dL (3.4-5.0); Carbon Dioxide 27.4 meq/L (21.0-32.0); Magnesium 1.6 mg/dL (1.5-2.5); Phosphorus 3.3 mg/dL (2.5-4.9); Potassium 4.1 meq/L (3.5-5.1)
[2018-08-29] MEDS: Insulin NovoLOG Aspart Correctional Sugar Inj SQ SCH ×4 (09:16→21:29)
[2018-08-29] MEDS: Sodium Chloride 0.9% 2 ML Flush BID IV.FLUSH SCH ×2 (09:16→21:28)
[2018-08-29] MEDS: Collagenase Oint 30 GM Tube TOPICAL SCH (09:16)
[2018-08-29] MEDS ORDERED: amLODIPine 10 MG Tablet PO ONE (14:57)
--- NOTE | 2018-08-29 17:08 | ECHRPT ---
EXAM DATE: 08/29/2018 12:00 AM EDT AGE/SEX: 58 years / Male INDICATIONS: Bilateral feet ulcers, diabetes mellitus CLINICAL DATA: This is the patient's initial encounter. Patient reports that signs and symptoms have been present for 1 week and indicates a pain score of 2/10. MEDICAL/SURGICAL HISTORY: . abscess, diabetes mellitus None. COMPARISON: No prior exams available for comparison. TECHNIQUE: Four-cuff ankle and brachial pressures were obtained. Pulse cuff waveform tracings of the ankles were recorded, and ankle-brachial indices were calculated. PRESSURES (mmHg): Brachial (arm) : RIGHT: 160, LEFT: iv site Ankle : RIGHT: 176, LEFT: 206 SARWAT : RIGHT: 1.10, LEFT: 1.29 TBI : RIGHT: 0.78, LEFT: 0.82 FINDINGS: Pulsed-Cuff Waveform: There are good upstroke and a dicrotic downstroke of the tracings. Other: None. CONCLUSION: 1. ABIs and TBI's in the normal range bilaterally. Electronically signed by: Jacob Stein MD 08/29/2018 5:07 PM EDT
[2018-08-29] MEDS ORDERED: Mag Sulf 1 gm/100 ml Premix 100 ML IV.SIG ONE (18:19)
--- NOTE | 2018-08-29 18:25 | P.PNIM ---
Subjective Interval history: Patient says he is feeling all right today. Denies any chest pain or shortness of breath. Physical Exam Vital signs: Vital Signs 08/28/18 19:40 08/28/18 20:00 08/29/18 00:00 Temperature 98.6 F 98.6 F Pulse Rate 55 L 74 89 Respiratory Rate 18 21 Blood Pressure 170/96 H 164/86 H Pulse Oximetry 98 95 08/29/18 03:52 08/29/18 04:00 08/29/18 08:00 Temperature 99.3 F 98.9 F Pulse Rate 75 56 L 56 L Respiratory Rate 18 19 Blood Pressure 190/88 H 181/82 H Pulse Oximetry 96 95 08/29/18 12:00 08/29/18 17:43 Temperature 98.1 F Pulse Rate 52 L Respiratory Rate 19 Blood Pressure 178/79 H Pulse Oximetry 94 L 94 L Intake & Output 08/28/18 08/29/18 08/29/18 18:59 06:59 18:59 Intake Total 2120 / 2120 312.5 / 312.5 350 / 350 Output Total 950 / 950 Balance 2120 / 2120 -637.5 / -637.5 350 / 350 Weight 94.5 kg Intake: IV 1400 / 1400 312.5 / 312.5 350 / 350 LR 1000 mL Inj 1,000 ML @ 30 100 / 100 mls/hr IV.CONT .Q24H [facility] Rx#: [id number] Sodium Bicarbonate 8.4% Inj 75 1200 / 1200 MEQ In NS Inj 925 ML @ 125 mls/ hr IV.CONT .Q8H [facility] Rx#: [id number] Zosyn 3.375 GM Premix 50 ML @ 100 / 100 50 / 50 100 / 100 100 mls/hr IV.SIG Q6H [facility] Rx#: [id number] Vancomycin Inj 1,000 MG In NS 250 / 250 Inj 250 ML @ 250 mls/hr IV.SIG Q12H [facility] Rx#:[id number] Vancomycin Inj 1,250 MG In NS 262.5 / 262.5 Inj 250 ML @ 250 mls/hr IV.SIG Q24H [facility] Rx#:[id number] Oral 720 / 720 Output: Urine 950 / 950 Other: Mode Setting Left Upper Back Continuous Continuous Continuous # Voids 3 # Bowel Movements 1 2 Narrative: GENERAL: Patient lying in bed. Appears comfortable. Alert and oriented x3. Exam unchanged from yesterday. SKIN: Warm and dry. HEAD: Normocephalic. EYES: No scleral icterus. No injection or drainage. NECK: Supple, trachea midline. No JVD. CARDIOVASCULAR: Regular rate and rhythm without murmurs, gallops, or rubs. RESPIRATORY: Breath sounds equal bilaterally. No accessory muscle use. Wound VAC to left posterior chest abscess wound. GASTROINTESTINAL: Abdomen soft, non-tender, nondistended. MUSCULOSKELETAL: No cyanosis, or edema. Bilateral foot ulcers as before. BACK: Nontender without obvious deformity. No CVA tenderness. - Urinary Catheter Management Indwelling Urethral Catheter Cath placed during this visit: yes, but has since been removed by the nurse Reason for continuing: Hourly intake/output Insertion date: 08/25/18 Insertion time: 13:16 Removal date: 08/26/18 Removal time: 04:05 Results - Labs CBC & Chem 7: 08/29/18 07:49 08/29/18 07:49 Laboratory Results - last 24 hr 08/28/18 08/28/18 08/29/18 18:12 20:44 07:49 WBC RBC Hgb Hct MCV MCH MCHC RDW Plt Count MPV Neut % (Auto) Lymph % (Auto) [place] % (Auto) Eos % (Auto) Baso % (Auto) Neut # (Auto) Lymph # (Auto) [place] # (Auto) Eos # (Auto) Baso # (Auto) WBC Differential Differential Comment Sodium 146 H 143 Potassium 4.3 4.1 Chloride 111 H 103 D Carbon Dioxide 26.4 27.4 Anion Gap 9 13 BUN 11 9 Creatinine 1.27 1.09 Estimated GFR 58 L 69 L POC Glucose 92 Random Glucose 80 127 H Calcium 8.2 L 8.0 L Phosphorus 3.3 Magnesium 1.6 Total Creatine Kinase 1017 H CK-MB (CK-2) 1.4 CK-MB (CK-2) % 0.1 Albumin 2.5 L Vancomycin Trough 8.9 08/29/18 08/29/18 08/29/18 07:49 08:04 13:12 WBC 8.9 RBC 4.24 L Hgb 12.4 L Hct 35.9 L MCV 84.6 MCH 29.2 MCHC 34.6 RDW 13.3 Plt Count 112 L MPV 8.8 Neut % (Auto) 68.8 Lymph % (Auto) 15.9 [place] % (Auto) 6.7 Eos % (Auto) 8.0 H Baso % (Auto) 0.6 Neut # (Auto) 6.1 Lymph # (Auto) 1.4 [place] # (Auto) 0.6 Eos # (Auto) 0.7 H Baso # (Auto) 0.1 WBC Differential . Differential Comment Auto diff final Sodium Potassium Chloride Carbon Dioxide Anion Gap BUN Creatinine Estimated GFR POC Glucose 121 H 244 H Random Glucose Calcium Phosphorus Magnesium Total Creatine Kinase CK-MB (CK-2) CK-MB (CK-2) % Albumin Vancomycin Trough 08/29/18 17:16 WBC RBC Hgb Hct MCV MCH MCHC RDW Plt Count MPV Neut % (Auto) Lymph % (Auto) [place] % (Auto) Eos % (Auto) Baso % (Auto) Neut # (Auto) Lymph # (Auto) [place] # (Auto) Eos # (Auto) Baso # (Auto) WBC Differential Differential Comment Sodium Potassium Chloride Carbon Dioxide Anion Gap BUN Creatinine Estimated GFR POC Glucose 167 H Random Glucose Calcium Phosphorus Magnesium Total Creatine Kinase CK-MB (CK-2) CK-MB (CK-2) % Albumin Vancomycin Trough Microbiology 08/25/18 13:55 Blood - Peripheral Aerobic Blood Culture - Final Staphylococcus coag negative 08/25/18 13:55 Blood - Peripheral Anaerobic Blood Culture - Final Staphylococcus coag negative 08/27/18 18:36 Abscess - Back Acid Fast Bacilli Smear - Final No acid fast bacilli seen 08/26/18 14:10 Blood - Peripheral Aerobic Blood Culture - Preliminary No growth in 3 days 08/26/18 14:10 Blood - Peripheral Anaerobic Blood Culture - Preliminary No growth in 3 days 08/26/18 14:15 Blood - Peripheral Aerobic Blood Culture - Preliminary No growth in 3 days 08/26/18 14:15 Blood - Peripheral Anaerobic Blood Culture - Preliminary No growth in 3 days 08/25/18 13:55 Blood - Peripheral Aerobic Blood Culture - Final Staphylococcus coag negative 08/25/18 13:55 Blood - Peripheral Anaerobic Blood Culture - Preliminary No growth in 4 days 08/27/18 18:36 Abscess - Back Gram Stain - Final 08/27/18 18:36 Abscess - Back Wound Culture - Preliminary Group A beta Strep Staphylococcus coag negative 08/27/18 18:36 Abscess - Back Fungal Smear - Final No fungal elements seen - Imaging Impressions Extremity Arterial Study 08/28/18 00:00 CONCLUSION: 1. ABIs and TBI's in the normal range bilaterally. Assessment and Plan - Assessment (1) Hyperthermia Code(s): R50.9 - Fever, unspecified Status: Acute (2) Sepsis Code(s): A41.9 - Sepsis, unspecified organism Status: Acute (3) Soft tissue abscess Code(s): L02.91 - Cutaneous abscess, unspecified Status: Acute (4) Diabetes mellitus Code(s): E11.9 - Type 2 diabetes mellitus without complications Status: Acute - Plan Mr. Anne is a pleasant 58 year old male with a history of diabetes mellitus who was brought to the hospital by EMS with altered mental status, GCS 5 and temp 106.7 after he was found [place] the side of the road in the sun. //Hyperthermia - Possibly heat stroke. His condition improved with normal saline infusion. - CK 304, will check again this afternoon. //Sepsis (Fever, WBC over 17K, lactic acid 3.2, probable infection skin abscess) . //Left upper back skin abscess //Gram-positive bacteremia. - We will obtain an ultrasound study. - Empirically, we will start Vancomycin and Zosyn. - Blood cultures pending = 08/26. Gram-positive bacteremia today. Repeat blood cultures, check echocardiogram, consult infectious disease. Possible sources include back abscess as well as bilateral foot ulcers. Continue IV antibiotics. General surgery consulted. Appreciate assistance for I&D today. = 08/27. Blood cultures with coag negative staph. Repeat blood cultures from - to date. Appreciate general surgery assistance. Continue broad-spectrum antibiotics as per infectious disease. = 08/27. Continue IV antibiotics as per infectious disease. Await sensitivities of blood cultures from admission. Continue with wound VAC. IV antibiotics as per infectious disease. Appreciate systems security consultant assistance. = 08/29. Follow-up cultures from 08/27 incision and drainage from abscess. Growing group A beta strep and coag negative staph. Appreciate ID assistance. Continue IV antibiotics as per ID //Bilateral diabetic foot ulcers Continue IV antibiotics. Consult podiatry. = 08/28. Follow-up podiatry recommendations. = 08/29. Continue wound care as per podiatry. Appreciate assistance. //Diabetes mellitus //Diabetes retinopathy //Diabetic peripheral neuropathy -Start Levemir 15 units QHS, sliding scale insulin and pre-meal insulin. -May consider Gabapentin once creatinine improves. = Blood sugars acceptable. Continue to monitor. //Elevated blood pressures. Systolic blood pressures in the 180s. Will discontinue IV fluid for now. Follow-up labs. //Elevated CK. CK up to 2226. Continue IV fluids. Continue to monitor. //Acute kidney injury -Creatinine 3.1 on admission. Likely due to volume depletion. -Will provide aggressive hydration with NS 200cc/hour. -Repeat BMP, Lactic acid, Total CK in the afternoon today and labs in the AM. = Creatinine 2.0, improving. Continue IV fluids. Discharge Planning: Pending improvement. Difficult discharge as patient is homeless with bacteremia
[2018-08-29] MEDS: Insulin Detemir Inj 1,000 UNIT/10 ML Vial SQ SCH (21:29)
[2018-08-30] MEDS: Piperacil/Tazo 3.375 GM Premix 50 ML IV.SIG SCH ×2 (01:04→06:20)
[2018-08-30] MEDS ORDERED: Pharmacy Ordered Lab Info OTHER ONE (05:45)
[2018-08-30] MEDS: Vancomycin Inj 1,000 MG in Sodium Chlor 0.9% Inj 250 ML IV.SIG SCH (06:21)
[2018-08-30 07:26] LABS: Baso # (Auto) 0.1 th/mm3 (0.0-0.2); Baso % (Auto) 0.7 % (0.0-2.0); Eos # (Auto) 1.3 th/mm3 (0.0-0.4); Eos % (Auto) 14.5 % (0.0-4.0); Hematocrit 35.8 % (39.0-51.0); Hemoglobin 12.2 gm/dL (13.0-17.0); Lymph # (Auto) 1.3 th/mm3 (1.0-4.8); Lymph % (Auto) 14.5 % (9.0-44.0); Mean Corpuscular HGB Conc 34.1 % (32.0-36.0); Mean Corpuscular Hemoglobin 29.1 pg (27.0-34.0); Mean Corpuscular Volume 85.4 fL (80.0-100.0); Mean Platelet Volume 8.4 fL (7.0-11.0); Mono # (Auto) 0.6 th/mm3 (0.0-0.9); Mono % (Auto) 6.8 % (0.0-8.0); Neut # (Auto) 5.5 th/mm3 (1.8-7.7); Neut % (Auto) 63.5 % (16.0-70.0); Platelet Count 166 th/mm3 (150-450); Red Blood Count 4.19 mil/mm3 (4.50-5.90); Red Cell Distribution Width 13.3 % (11.6-17.2); White Blood Count 8.7 th/mm3 (4.0-11.0)
[2018-08-30 07:56] LABS: Albumin 2.3 g/dL (3.4-5.0); Anion Gap 8 meq/L (5-15); Blood Urea Nitrogen 14 mg/dL (7-18); Calcium 8.8 mg/dL (8.5-10.1); Carbon Dioxide 33.8 meq/L (21.0-32.0); Chloride 98 meq/L (98-107); Creatine Kinase 553 U/L (39-308); Glomerular Filtration Rate 56 mL/min (>89); Glucose,Random 165 mg/dL (74-106); Magnesium 1.8 mg/dL (1.5-2.5); Phosphorus 3.7 mg/dL (2.5-4.9); Potassium 3.6 meq/L (3.5-5.1); Sodium 140 meq/L (136-145)
[2018-08-30 08:09] LABS: CKMB Percent 0.2 % (0.0-4.0)
--- NOTE | 2018-08-30 08:11 | P.PNID ---
Subjective Remarks: Patient is a 58-year-old male, brought into the hospital after [place]. Patient could not really remember what happened and how he ended up on the day H. He was apparently out in the road in the sun. He was given fluids in the ED, and his mental status improved. His temperature was 106.7 when he came in, white count was 17,000. CT of the head was negative. Patient was found to have a complex fluid in his back. He could not remember how he got it. Patient however is homeless. Temperatures are better. His WBC is down to 11. Blood cultures are now reported as growing gram-positive cocci. Patient also had renal insufficiency, and his creatinine is down to 2. Patient denies any respiratory complaint. He has not had any fever chills or sweats prior to coming into the hospital. He denies any abdominal pain, nausea or vomiting. Denies any urinary complaints. Patient denies using IV drugs. Infectious disease consultation has been requested to evaluate the patient with positive blood culture. Notes reviewed Temps ok Saying his BP has been running high BC (+) has multiple Coag Neg Staph Abscess C/S GAS and Coag neg Staph Creatinine better WBC lower Antibiotics: Zosyn Vancomycin Lines: PIV Past Medical History: Diabetes Allergies/Adverse Reactions: Allergies No Known Allergies Allergy (Unverified 08/25/18 13:09) Objective Vital Signs 08/29/18 12:00 08/29/18 16:00 08/29/18 17:43 Temperature 98.1 F 98.4 F Pulse Rate 48 L 48 L Respiratory Rate 19 19 Blood Pressure 178/79 H 200/90 H Pulse Oximetry 94 L 95 94 L 08/29/18 20:00 08/30/18 00:00 08/30/18 04:00 Temperature 98 F 97.3 F L 98 F Pulse Rate 50 L 55 L 47 L Respiratory Rate 18 18 20 Blood Pressure 170/78 H 116/90 175/90 H Pulse Oximetry 95 95 92 L Intake & Output 08/29/18 08/30/18 08/30/18 18:59 06:59 18:59 Intake Total 350 / 350 1770 / 1770 300 / 300 Output Total 1650 / 1650 2029 / 2029 Balance -1300 / -1300 -260 / -260 300 / 300 Intake: IV 350 / 350 450 / 450 300 / 300 Magnesium Sulfate 1 gm/D5W 100 100 / 100 ml Premix 100 ML @ 100 mls/hr IV.SIG ONCE ONE Rx#:[id number] Zosyn 3.375 GM Premix 50 ML @ 100 / 100 100 / 100 50 / 50 100 mls/hr IV.SIG Q6H [facility] Rx#: [id number] Vancomycin Inj 1,000 MG In NS 250 / 250 250 / 250 250 / 250 Inj 250 ML @ 250 mls/hr IV.SIG Q12H [facility] Rx#:[id number] Oral 720 / 720 Anesthesia Amount 600 / 600 Output: Urine 1650 / 1650 1000 / 1000 Estimated Blood Loss 30 / 30 Urine Amount (Catheter) 1000 / 1000 Indwelling Urethral Catheter 1000 / 1000 Other: Mode Setting Left Foot Continuous Left Upper Back Continuous Continuous Date of Last Bowel Movement 08/30/18 # Bowel Movements 2 08/25/18 13:55 Blood - Peripheral Aerobic Blood Culture - Final Staphylococcus coag negative 08/25/18 13:55 Blood - Peripheral Anaerobic Blood Culture - Final Staphylococcus coag negative 08/27/18 18:36 Abscess - Back Acid Fast Bacilli Smear - Final No acid fast bacilli seen 08/27/18 18:36 Abscess - Back Mycobacterial Culture - Pending 08/26/18 14:10 Blood - Peripheral Aerobic Blood Culture - Preliminary No growth in 3 days 08/26/18 14:10 Blood - Peripheral Anaerobic Blood Culture - Preliminary No growth in 3 days 08/26/18 14:15 Blood - Peripheral Aerobic Blood Culture - Preliminary No growth in 3 days 08/26/18 14:15 Blood - Peripheral Anaerobic Blood Culture - Preliminary No growth in 3 days 08/25/18 13:55 Blood - Peripheral Aerobic Blood Culture - Final Staphylococcus coag negative 08/25/18 13:55 Blood - Peripheral Anaerobic Blood Culture - Preliminary No growth in 4 days 08/27/18 18:36 Abscess - Back Gram Stain - Final 08/27/18 18:36 Abscess - Back Wound Culture - Preliminary Group A beta Strep Staphylococcus coag negative 08/27/18 18:36 Abscess - Back Fungal Smear - Final No fungal elements seen 08/27/18 18:36 Abscess - Back Fungal Culture - Pending 08/25/18 13:30 Catheterized Urine Urine Culture - Final No growth in 48 hours Lab - Hematology Results 08/29/18 08/30/18 07:49 05:29 WBC 8.9 8.7 RBC 4.24 L 4.19 L Hgb 12.4 L 12.2 L Hct 35.9 L 35.8 L MCV 84.6 85.4 MCH 29.2 29.1 MCHC 34.6 34.1 RDW 13.3 13.3 Plt Count 112 L 166 D MPV 8.8 8.4 Neut % (Auto) 68.8 63.5 Lymph % (Auto) 15.9 14.5 [place] % (Auto) 6.7 6.8 Eos % (Auto) 8.0 H 14.5 H Baso % (Auto) 0.6 0.7 Neut # (Auto) 6.1 5.5 Lymph # (Auto) 1.4 1.3 [place] # (Auto) 0.6 0.6 Eos # (Auto) 0.7 H 1.3 H Baso # (Auto) 0.1 0.1 WBC Differential . . Differential Comment Auto diff final Auto diff final Lab - Chemistry Results 08/28/18 08/28/18 08/28/18 08:26 11:32 18:12 Sodium 146 H Potassium 4.3 Chloride 111 H Carbon Dioxide 26.4 Anion Gap 9 BUN 11 Creatinine 1.27 Estimated GFR 58 L POC Glucose 159 H 235 H Random Glucose 80 Calcium 8.2 L Phosphorus Magnesium Total Creatine Kinase 1017 H CK-MB (CK-2) 1.4 CK-MB (CK-2) % 0.1 Albumin 08/28/18 08/29/18 08/29/18 20:44 07:49 08:04 Sodium 143 Potassium 4.1 Chloride 103 D Carbon Dioxide 27.4 Anion Gap 13 BUN 9 Creatinine 1.09 Estimated GFR 69 L POC Glucose 92 121 H Random Glucose 127 H Calcium 8.0 L Phosphorus 3.3 Magnesium 1.6 Total Creatine Kinase CK-MB (CK-2) CK-MB (CK-2) % Albumin 2.5 L 08/29/18 08/29/18 08/30/18 13:12 17:16 05:29 Sodium 140 Potassium 3.6 Chloride 98 Carbon Dioxide 33.8 H Anion Gap 8 BUN 14 Creatinine 1.31 H Estimated GFR 56 L POC Glucose 244 H 167 H Random Glucose 165 H Calcium 8.8 D Phosphorus 3.7 Magnesium 1.8 Total Creatine Kinase 553 H CK-MB (CK-2) CK-MB (CK-2) % Albumin 2.3 L 08/30/18 07:35 Sodium Potassium Chloride Carbon Dioxide Anion Gap BUN Creatinine Estimated GFR POC Glucose 161 H Random Glucose Calcium Phosphorus Magnesium Total Creatine Kinase CK-MB (CK-2) CK-MB (CK-2) % Albumin Imaging: ITS Impressions Soft Tissue Ultrasound 08/25/18 00:00 CONCLUSION: 1. Complex hypoechoic masslike structure which is nonspecific. This could represent a hematoma. Chest X-Ray 08/25/18 13:09 CONCLUSION: Right IJ central venous catheter in good position. The lungs are clear. Head CT 08/25/18 13:09 CONCLUSION: 1. Negative CT Head non contrast. . Extremity Arterial Study 08/28/18 00:00 CONCLUSION: 1. ABIs and TBI's in the normal range bilaterally. Physical Exam: GENERAL: unkempt, awake and alert, not in respiratory distress. SKIN: Cool and dry. No generalized rash. HEAD: Atraumatic. Normocephalic. No temporal wasting, or tenderness. EYES: [place] conjunctiva. No petechia or hemorrhage. Pupils equal, round and reactive to light. Extraocular movements full and intact. No scleral icterus. No injection or drainage. EARS, NOSE AND THROAT: Mucous membranes pink and moist. No oral lesions noted. No exudate. No oral thrush. NECK: Trachea midline. Supple and not tender, no meningeal signs CARDIOVASCULAR: Regular rate and rhythm. No murmurs, rubs or gallops heard RESPIRATORY: Clear to auscultation. Breath sounds equal bilaterally. No rales , wheezing or rhonchi ABDOMEN: Soft, non-tender, nondistended. Bowel sounds present and normoactive. No guarding. No rebound. No organomegaly. BACK: There is a wound vac in place. Redness around minimal, indurated but better EXTREMITIES: No clubbing, cyanosis, or edema. No joint effusion, has good ROM. No calf tenderness. Well perfused and warm. NEUROLOGICAL: Non-focal. PSYCHIATRIC: Normal affect, calm and cooperative. LINE: No evidence of infection Assessment and Plan - Plan Impression (+) BC with muliple and different Coag Neg Staph, C/W contaminant Abscess in L upper back, S/P I and D - C/S GAS and Coag neg Staph Fevers, ?hyperthermia due to exposure, due to infection - resolved renal insufficiency, better leukocytosis better Recommendation Change Abx to Rocephin If cleared by surgery for D/C, will D/C home on Augmentin 500 TID x 10 days Would be great if patient can take a shower prior to D/C Explained plan to the patient I will be available prn Please call if with any new ID issue or question
[2018-08-30] MEDS: Insulin NovoLOG Aspart Correctional Sugar Inj SQ SCH ×4 (08:49→22:50)
[2018-08-30] MEDS: Sodium Chloride 0.9% 2 ML Flush BID IV.FLUSH SCH ×2 (08:50→22:41)
[2018-08-30] MEDS: Collagenase Oint 30 GM Tube TOPICAL SCH (08:51)
--- NOTE | 2018-08-30 10:18 | P.PNIM ---
Subjective Interval history: She says he is feeling right. Denies any chest pain shortness breath. Reports pain is controlled. Physical Exam Vital signs: Vital Signs 08/29/18 12:00 08/29/18 16:00 08/29/18 17:43 Temperature 98.1 F 98.4 F Pulse Rate 48 L 48 L Respiratory Rate 19 19 Blood Pressure 178/79 H 200/90 H Pulse Oximetry 94 L 95 94 L 08/29/18 20:00 08/30/18 00:00 08/30/18 04:00 Temperature 98 F 97.3 F L 98 F Pulse Rate 50 L 55 L 47 L Respiratory Rate 18 18 20 Blood Pressure 170/78 H 116/90 175/90 H Pulse Oximetry 95 95 92 L 08/30/18 08:00 Temperature 98 F Pulse Rate 47 L Respiratory Rate 17 Blood Pressure 195/85 H Pulse Oximetry 93 L Intake & Output 08/29/18 08/30/18 08/30/18 18:59 06:59 18:59 Intake Total 350 / 350 1770 / 1770 400 / 400 Output Total 1650 / 1650 2030 / 2030 Balance -1300 / -1300 -260 / -260 400 / 400 Intake: IV 350 / 350 450 / 450 400 / 400 Magnesium Sulfate 1 gm/D5W 100 100 / 100 ml Premix 100 ML @ 100 mls/hr IV.SIG ONCE ONE Rx#:[id number] Zosyn 3.375 GM Premix 50 ML @ 100 / 100 100 / 100 50 / 50 100 mls/hr IV.SIG Q6H [facility] Rx#: [id number] Vancomycin Inj 1,000 MG In NS 250 / 250 250 / 250 250 / 250 Inj 250 ML @ 250 mls/hr IV.SIG Q12H [facility] Rx#:[id number] Rocephin Inj 2,000 MG In NS Inj 100 / 100 100 ML @ 200 mls/hr IV.SIG Q24H [facility] Rx#:[id number] Oral 720 / 720 Anesthesia Amount 600 / 600 Output: Urine 1650 / 1650 1000 / 1000 Estimated Blood Loss 30 / 30 Urine Amount (Catheter) 1000 / 1000 Indwelling Urethral Catheter 1000 / 1000 Other: Mode Setting Left Foot Continuous Left Upper Back Continuous Continuous Date of Last Bowel Movement 08/30/18 # Bowel Movements 2 Narrative: GENERAL: Patient lying in bed. Appears comfortable. Alert and oriented x3. Exam again unchanged from yesterday. SKIN: Warm and dry. HEAD: Normocephalic. EYES: No scleral icterus. No injection or drainage. NECK: Supple, trachea midline. No JVD. CARDIOVASCULAR: Regular rate and rhythm without murmurs, gallops, or rubs. RESPIRATORY: Breath sounds equal bilaterally. No accessory muscle use. Wound VAC to left posterior chest abscess wound. GASTROINTESTINAL: Abdomen soft, non-tender, nondistended. MUSCULOSKELETAL: No cyanosis, or edema. Bilateral foot ulcers as before. BACK: Nontender without obvious deformity. No CVA tenderness. - Urinary Catheter Management Indwelling Urethral Catheter Cath placed during this visit: yes, but has since been removed by the nurse Reason for continuing: Hourly intake/output Insertion date: 08/25/18 Insertion time: 13:16 Removal date: 08/26/18 Removal time: 04:05 Results - Labs CBC & Chem 7: 08/30/18 05:29 08/30/18 05:29 Laboratory Results - last 24 hr 08/29/18 08/29/18 08/30/18 13:12 17:16 05:29 WBC RBC Hgb Hct MCV MCH MCHC RDW Plt Count MPV Neut % (Auto) Lymph % (Auto) [place] % (Auto) Eos % (Auto) Baso % (Auto) Neut # (Auto) Lymph # (Auto) [place] # (Auto) Eos # (Auto) Baso # (Auto) WBC Differential Differential Comment Sodium 140 Potassium 3.6 Chloride 98 Carbon Dioxide 33.8 H Anion Gap 8 BUN 14 Creatinine 1.31 H Estimated GFR 56 L POC Glucose 244 H 167 H Random Glucose 165 H Calcium 8.8 D Phosphorus 3.7 Magnesium 1.8 Total Creatine Kinase 553 H CK-MB (CK-2) Less than 1.0 CK-MB (CK-2) % 0.2 Albumin 2.3 L Vancomycin Trough 14.0 H 08/30/18 08/30/18 05:29 07:35 WBC 8.7 RBC 4.19 L Hgb 12.2 L Hct 35.8 L MCV 85.4 MCH 29.1 MCHC 34.1 RDW 13.3 Plt Count 166 D MPV 8.4 Neut % (Auto) 63.5 Lymph % (Auto) 14.5 [place] % (Auto) 6.8 Eos % (Auto) 14.5 H Baso % (Auto) 0.7 Neut # (Auto) 5.5 Lymph # (Auto) 1.3 [place] # (Auto) 0.6 Eos # (Auto) 1.3 H Baso # (Auto) 0.1 WBC Differential . Differential Comment Auto diff final Sodium Potassium Chloride Carbon Dioxide Anion Gap BUN Creatinine Estimated GFR POC Glucose 161 H Random Glucose Calcium Phosphorus Magnesium Total Creatine Kinase CK-MB (CK-2) CK-MB (CK-2) % Albumin Vancomycin Trough Microbiology 08/27/18 18:36 Abscess - Back Gram Stain - Final 08/27/18 18:36 Abscess - Back Wound Culture - Final Group A beta Strep 08/25/18 13:55 Blood - Peripheral Aerobic Blood Culture - Final Staphylococcus coag negative 08/25/18 13:55 Blood - Peripheral Anaerobic Blood Culture - Final Staphylococcus coag negative 08/27/18 18:36 Abscess - Back Acid Fast Bacilli Smear - Final No acid fast bacilli seen 08/26/18 14:10 Blood - Peripheral Aerobic Blood Culture - Preliminary No growth in 3 days 08/26/18 14:10 Blood - Peripheral Anaerobic Blood Culture - Preliminary No growth in 3 days 08/26/18 14:15 Blood - Peripheral Aerobic Blood Culture - Preliminary No growth in 3 days 08/26/18 14:15 Blood - Peripheral Anaerobic Blood Culture - Preliminary No growth in 3 days 08/25/18 13:55 Blood - Peripheral Aerobic Blood Culture - Final Staphylococcus coag negative 08/25/18 13:55 Blood - Peripheral Anaerobic Blood Culture - Preliminary No growth in 4 days 08/27/18 18:36 Abscess - Back Fungal Smear - Final No fungal elements seen - Imaging Impressions Extremity Arterial Study 08/28/18 00:00 CONCLUSION: 1. ABIs and TBI's in the normal range bilaterally. Assessment and Plan - Assessment (1) Hyperthermia Code(s): R50.9 - Fever, unspecified Status: Acute (2) Sepsis Code(s): A41.9 - Sepsis, unspecified organism Status: Acute (3) Soft tissue abscess Code(s): L02.91 - Cutaneous abscess, unspecified Status: Acute (4) Diabetes mellitus Code(s): E11.9 - Type 2 diabetes mellitus without complications Status: Acute - Plan Mr. Anne is a pleasant 58 year old male with a history of diabetes mellitus who was brought to the hospital by EMS with altered mental status, GCS 5 and temp 106.7 after he was found at the side of the road in the sun. //Hyperthermia - Possibly heat stroke. His condition improved with normal saline infusion. - CK 304, will check again this afternoon. //Sepsis (Fever, WBC over 17K, lactic acid 3.2, probable infection skin abscess) . //Left upper back skin abscess //Gram-positive bacteremia. - We will obtain an ultrasound study. - Empirically, we will start Vancomycin and Zosyn. - Blood cultures pending = 08/26. Gram-positive bacteremia today. Repeat blood cultures, check echocardiogram, consult infectious disease. Possible sources include back abscess as well as bilateral foot ulcers. Continue IV antibiotics. General surgery consulted. Appreciate assistance for I&D today. = 08/27. Blood cultures with coag negative staph. Repeat blood cultures from - to date. Appreciate general surgery assistance. Continue broad-spectrum antibiotics as per infectious disease. = 08/27. Continue IV antibiotics as per infectious disease. Await sensitivities of blood cultures from admission. Continue with wound VAC. IV antibiotics as per infectious disease. Appreciate provider contracting consultant assistance. = 08/29. Follow-up cultures from 08/27 incision and drainage from abscess. Growing group A beta strep and coag negative staph. Appreciate ID assistance. Continue IV antibiotics as per ID = 08/30. Continue antibiotics as per infectious disease. Discussed with infectious disease. Hopefully patient can go home on Augmentin 10-day course after cleared by general surgery. //Bilateral diabetic foot ulcers Continue IV antibiotics. Consult podiatry. = 08/28. Follow-up podiatry recommendations. = 08/29. Continue wound care as per podiatry. Appreciate assistance. = 08/30. Doppler read is pending. Follow-up podiatry recommendations. //Diabetes mellitus //Diabetes retinopathy //Diabetic peripheral neuropathy -Start Levemir 15 units QHS, sliding scale insulin and pre-meal insulin. -May consider Gabapentin once creatinine improves. = Blood sugars acceptable. Continue to monitor. //Elevated blood pressures. Systolic blood pressures in the 180s. Will discontinue IV fluid for now. Follow-up labs. = 08/30. Systolic blood pressures in the 190s. Will add hydralazine, scheduled clonidine, amlodipine. Will try to avoid diuretics secondary to patient's outdoor lifestyle. //Elevated CK. CK up to 2227. Continue IV fluids. Continue to monitor. = Subsequent CK in the 500s. Much improved. //Acute kidney injury -Creatinine 3.1 on admission. Likely due to volume depletion. -Will provide aggressive hydration with NS 200cc/hour. -Repeat BMP, Lactic acid, Total CK in the afternoon today and labs in the AM. = Creatinine 2.0, improving. Continue IV fluids. = Creatinine 1.3. Relatively stable. Follow-up tomorrow. Discharge Planning: = We will need general surgery clearance Infectious disease says patient can go home on Augmentin 10-day course when cleared by general surgery Pending podiatry clearance. Patient is homeless.
[2018-08-30] MEDS: amLODIPine 10 MG Tablet PO SCH (12:04)
[2018-08-30] MEDS: hydrALAZINE 25 MG Tablet PO SCH ×2 (13:21→17:29)
--- NOTE | 2018-08-30 15:47 | P.PNGS ---
Subjective Interval history: Resting in bed No issues Physical Exam Vital signs: Vital Signs 08/29/18 16:00 08/29/18 17:43 08/29/18 20:00 Temperature 98.4 F 98 F Pulse Rate 48 L 50 L Respiratory Rate 19 18 Blood Pressure 200/90 H 170/78 H Pulse Oximetry 95 94 L 95 08/30/18 00:00 08/30/18 04:00 08/30/18 08:00 Temperature 97.3 F L 98 F 98 F Pulse Rate 55 L 47 L 47 L Respiratory Rate 18 20 17 Blood Pressure 116/90 175/90 H 195/85 H Pulse Oximetry 95 92 L 95 08/30/18 12:00 Temperature 97.9 F Pulse Rate 47 L Respiratory Rate 17 Blood Pressure 176/81 H Pulse Oximetry 95 Intake & Output 08/29/18 08/30/18 08/30/18 18:59 06:59 18:59 Intake Total 350 / 350 1770 / 1770 400 / 400 Output Total 1650 / 1650 2030 / 2030 Balance -1300 / -1300 -260 / -260 400 / 400 Intake: IV 350 / 350 450 / 450 400 / 400 Magnesium Sulfate 1 gm/D5W 100 100 / 100 ml Premix 100 ML @ 100 mls/hr IV.SIG ONCE ONE Rx#:[id number] Zosyn 3.375 GM Premix 50 ML @ 100 / 100 100 / 100 50 / 50 100 mls/hr IV.SIG Q6H [facility] Rx#: [id number] Vancomycin Inj 1,000 MG In NS 250 / 250 250 / 250 250 / 250 Inj 250 ML @ 250 mls/hr IV.SIG Q12H [facility] Rx#:[id number] Rocephin Inj 2,000 MG In NS Inj 100 / 100 100 ML @ 200 mls/hr IV.SIG Q24H [facility] Rx#:[id number] Oral 720 / 720 Anesthesia Amount 600 / 600 Output: Urine 1650 / 1650 1000 / 1000 Estimated Blood Loss 30 / 30 Urine Amount (Catheter) 1000 / 1000 Indwelling Urethral Catheter 1000 / 1000 Other: Mode Setting Left Foot Continuous Left Upper Back Continuous Continuous Date of Last Bowel Movement 08/30/18 # Bowel Movements 2 Narrative: Alert and awake Upper back--- wound vac removed---- wound bed dry --- without exudate or drainage--- 2x2 packing placed; periwound area less red today - Urinary Catheter Management Indwelling Urethral Catheter Cath placed during this visit: yes, but has since been removed by the nurse Reason for continuing: Hourly intake/output Insertion date: 08/25/18 Insertion time: 13:16 Removal date: 08/26/18 Removal time: 04:05 Results - Labs 08/30/18 05:29 08/31/18 13:35 Laboratory Results - last 24 hr 08/29/18 08/30/18 08/30/18 17:16 05:29 05:29 WBC 8.7 RBC 4.19 L Hgb 12.2 L Hct 35.8 L MCV 85.4 MCH 29.1 MCHC 34.1 RDW 13.3 Plt Count 166 D MPV 8.4 Neut % (Auto) 63.5 Lymph % (Auto) 14.5 [place] % (Auto) 6.8 Eos % (Auto) 14.5 H Baso % (Auto) 0.7 Neut # (Auto) 5.5 Lymph # (Auto) 1.3 [place] # (Auto) 0.6 Eos # (Auto) 1.3 H Baso # (Auto) 0.1 WBC Differential . Differential Comment Auto diff final Sodium 140 Potassium 3.6 Chloride 98 Carbon Dioxide 33.8 H Anion Gap 8 BUN 14 Creatinine 1.31 H Estimated GFR 56 L POC Glucose 167 H Random Glucose 165 H Calcium 8.8 D Phosphorus 3.7 Magnesium 1.8 Total Creatine Kinase 553 H CK-MB (CK-2) Less than 1.0 CK-MB (CK-2) % 0.2 Albumin 2.3 L Vancomycin Trough 14.0 H 08/30/18 08/30/18 07:35 11:08 WBC RBC Hgb Hct MCV MCH MCHC RDW Plt Count MPV Neut % (Auto) Lymph % (Auto) [place] % (Auto) Eos % (Auto) Baso % (Auto) Neut # (Auto) Lymph # (Auto) [place] # (Auto) Eos # (Auto) Baso # (Auto) WBC Differential Differential Comment Sodium Potassium Chloride Carbon Dioxide Anion Gap BUN Creatinine Estimated GFR POC Glucose 161 H 206 H Random Glucose Calcium Phosphorus Magnesium Total Creatine Kinase CK-MB (CK-2) CK-MB (CK-2) % Albumin Vancomycin Trough - Imaging Imaging: ITS Impressions Soft Tissue Ultrasound 08/25/18 00:00 CONCLUSION: 1. Complex hypoechoic masslike structure which is nonspecific. This could represent a hematoma. Chest X-Ray 08/25/18 13:09 CONCLUSION: Right IJ central venous catheter in good position. The lungs are clear. Head CT 08/25/18 13:09 CONCLUSION: 1. Negative CT Head non contrast. . Extremity Arterial Study 08/28/18 00:00 CONCLUSION: 1. ABIs and TBI's in the normal range bilaterally. Assessment and Plan - Assessment (1) Soft tissue abscess Code(s): L02.91 - Cutaneous abscess, unspecified Status: Acute Plan: 58 year old male with upper back abscess -POD3 upper back abscess drainage -Diet as tolerated -Removed Vac--- wet to dry dressings ordered -Patient to shower -Discussed with RN -GS will see as needed over the weekend Wound is clean without drainage The exam, history, and the medical decision-making described in the above note were completed with the assistance of the mid-level provider. I reviewed and agree with the findings presented. I attest that I had a [id number] encounter with the patient on the same day, and personally performed and documented my assessment and findings in the medical record.
[2018-08-30] MEDS: Insulin Detemir Inj 1,000 UNIT/10 ML Vial SQ SCH (22:50)
[2018-08-31] MEDS: Sodium Chloride 0.9% 2 ML Flush BID IV.FLUSH SCH ×2 (08:55→22:03)
[2018-08-31] MEDS: hydrALAZINE 25 MG Tablet PO SCH ×3 (08:55→18:29)
[2018-08-31] MEDS: Collagenase Oint 30 GM Tube TOPICAL SCH (08:55)
[2018-08-31] MEDS: amLODIPine 10 MG Tablet PO SCH (08:55)
[2018-08-31] MEDS: Insulin NovoLOG Aspart Correctional Sugar Inj SQ SCH ×4 (08:57→22:03)
--- NOTE | 2018-08-31 12:46 | P.PNIM ---
Subjective Interval history: Patient says he is feeling right. Says he fell this morning because the bathroom was wet and he slipped. Tried to break his fall but ended up with small contusion on his right skull. Denies losing consciousness. He does report some lightheadedness upon standing but did not have it during this episode. Denies any focal weakness. Denies any chest pain or shortness of breath. Physical Exam Vital signs: Vital Signs 08/30/18 16:00 08/30/18 20:00 08/31/18 00:00 Temperature 97.4 F L 98.5 F 98.2 F Pulse Rate 47 L 49 L 50 L Respiratory Rate 17 20 20 Blood Pressure 143/63 H 112/56 L 150/68 H Pulse Oximetry 97 96 92 L 08/31/18 04:00 08/31/18 08:00 08/31/18 08:12 Temperature 98.1 F 98.3 F 98.3 F Pulse Rate 51 L 49 L 50 L Respiratory Rate 20 18 18 Blood Pressure 191/81 H 211/82 H 211/82 H Pulse Oximetry 93 L 93 L 93 L 08/31/18 09:12 08/31/18 10:12 08/31/18 11:12 Temperature 98.3 F 98.3 F 97.7 F Pulse Rate 52 L 54 L 50 L Respiratory Rate 18 18 18 Blood Pressure 172/101 H 173/98 H 130/70 Pulse Oximetry 98 97 98 Intake & Output 08/30/18 08/31/18 08/31/18 18:59 06:59 18:59 Intake Total 1360 / 1360 1020 / 1020 100 / 100 Output Total 1000 / 1000 2029 / 2029 Balance 360 / 360 -1010 / -1010 100 / 100 Intake: IV 400 / 400 100 / 100 Zosyn 3.375 GM Premix 50 ML @ 50 / 50 100 mls/hr IV.SIG Q6H [facility] Rx#: [id number] Vancomycin Inj 1,000 MG In NS 250 / 250 Inj 250 ML @ 250 mls/hr IV.SIG Q12H [facility] Rx#:[id number] Rocephin Inj 2,000 MG In NS Inj 100 / 100 100 / 100 100 ML @ 200 mls/hr IV.SIG Q24H [facility] Rx#:[id number] Oral 960 / 960 420 / 420 Anesthesia Amount 600 / 600 Output: Urine 1000 / 1000 1000 / 1000 Estimated Blood Loss 30 30 Urine Amount (Catheter) 1000 / 1000 Indwelling Urethral Catheter 1000 / 1000 Other: Mode Setting Left Upper Back Continuous # Voids 3 Date of Last Bowel Movement 08/30/18 08/30/18 08/30/18 # Bowel Movements 0 0 Narrative: GENERAL: Patient sitting up in bed. Appears comfortable. SKIN: Warm and dry. HEAD: Normocephalic. Small contusion with small skin abrasion right superior lateral skull. No bleeding. EYES: No scleral icterus. No injection or drainage. NECK: Supple, trachea midline. No JVD or lymphadenopathy. CARDIOVASCULAR: Regular rate and rhythm without murmurs, gallops, or rubs. RESPIRATORY: Breath sounds equal bilaterally. No accessory muscle use. GASTROINTESTINAL: Abdomen soft, non-tender, nondistended. MUSCULOSKELETAL: No cyanosis, or edema. BACK: Nontender without obvious deformity. No CVA tenderness. - Urinary Catheter Management Indwelling Urethral Catheter Cath placed during this visit: yes, but has since been removed by the nurse Reason for continuing: Hourly intake/output Insertion date: 08/25/18 Insertion time: 13:16 Removal date: 08/26/18 Removal time: 04:05 Results - Labs CBC & Chem 7: 08/30/18 05:29 08/30/18 05:29 Laboratory Results - last 24 hr 08/30/18 18:07 POC Glucose 127 H Microbiology 08/26/18 14:10 Blood - Peripheral Aerobic Blood Culture - Final No growth in 5 days 08/26/18 14:10 Blood - Peripheral Anaerobic Blood Culture - Final No growth in 5 days 08/26/18 14:15 Blood - Peripheral Aerobic Blood Culture - Final No growth in 5 days 08/26/18 14:15 Blood - Peripheral Anaerobic Blood Culture - Final No growth in 5 days 08/25/18 13:55 Blood - Peripheral Aerobic Blood Culture - Final Staphylococcus coag negative 08/25/18 13:55 Blood - Peripheral Anaerobic Blood Culture - Final No growth in 5 days 08/27/18 18:36 Abscess - Back Gram Stain - Final 08/27/18 18:36 Abscess - Back Wound Culture - Final Group A beta Strep Assessment and Plan - Assessment (1) Hyperthermia Code(s): R50.9 - Fever, unspecified Status: Acute (2) Sepsis Code(s): A41.9 - Sepsis, unspecified organism Status: Acute (3) Soft tissue abscess Code(s): L02.91 - Cutaneous abscess, unspecified Status: Acute (4) Diabetes mellitus Code(s): E11.9 - Type 2 diabetes mellitus without complications Status: Acute - Plan Mr. Anne is a pleasant 58 year old male with a history of diabetes mellitus who was brought to the hospital by EMS with altered mental status, GCS 5 and temp 106.7 after he was found at the side of the road [place] the sun. //Hyperthermia - Possibly heat stroke. His condition improved with normal saline infusion. - CK 304, will check again this afternoon. //Sepsis (Fever, WBC over 17K, lactic acid 3.2, probable infection skin abscess) . //Left upper back skin abscess //Gram-positive bacteremia. - We will obtain an ultrasound study. - Empirically, we will start Vancomycin and Zosyn. - Blood cultures pending = 08/26. Gram-positive bacteremia today. Repeat blood cultures, check echocardiogram, consult infectious disease. Possible sources include back abscess as well as bilateral foot ulcers. Continue IV antibiotics. General surgery consulted. Appreciate assistance for I&D today. = 08/27. Blood cultures with coag negative staph. Repeat blood cultures from - to date. Appreciate general surgery assistance. Continue broad-spectrum antibiotics as per infectious disease. = 08/27. Continue IV antibiotics as per infectious disease. Await sensitivities of blood cultures from admission. Continue with wound VAC. IV antibiotics as per infectious disease. Appreciate nutrition consultant assistance. = 08/29. Follow-up cultures from 08/27 incision and drainage from abscess. Growing group A beta strep and coag negative staph. Appreciate ID assistance. Continue IV antibiotics as per ID = 08/30. Continue antibiotics as per infectious disease. Discussed with infectious disease. Hopefully patient can go home on Augmentin 10-day course after cleared by general surgery. //Bilateral diabetic foot ulcers Continue IV antibiotics. Consult podiatry. = 08/28. Follow-up podiatry recommendations. = 08/29. Continue wound care as per podiatry. Appreciate assistance. = 08/30. Doppler read is pending. Follow-up podiatry recommendations. //Diabetes mellitus //Diabetes retinopathy //Diabetic peripheral neuropathy -Start Levemir 15 units QHS, sliding scale insulin and pre-meal insulin. -May consider Gabapentin once creatinine improves. = Blood sugars acceptable. Continue to monitor. //Elevated blood pressures. Systolic blood pressures in the 180s. Will discontinue IV fluid for now. Follow-up labs. = 08/30. Systolic blood pressures in the 190s. Will add hydralazine, scheduled clonidine, amlodipine. Will try to avoid diuretics secondary to patient's outdoor lifestyle. = 08/31. Blood pressure improved today. We will continue to monitor. //Elevated CK. CK up to 2226. Continue IV fluids. Continue to monitor. = Subsequent CK in the 500s. Much improved. //Status post fall mechanical fall. Patient also reports lightheadedness = We will check orthostatic vitals. //Acute kidney injury -Creatinine 3.1 on admission. Likely due to volume depletion. -Will provide aggressive hydration with NS 200cc/hour. -Repeat BMP, Lactic acid, Total CK in the afternoon today and labs in the AM. = Creatinine 2.0, improving. Continue IV fluids. = Creatinine 1.3. Relatively stable. Follow-up tomorrow. Discharge Planning: = We will need general surgery clearance Infectious disease says patient can go home on Augmentin 10-day course when cleared by general surgery Pending podiatry clearance. Patient is homeless.
[2018-08-31 13:58] LABS: Calcium 8.7 mg/dL (8.5-10.1); Carbon Dioxide 32.9 meq/L (21.0-32.0); Potassium 4.1 meq/L (3.5-5.1)
[2018-08-31] MEDS: Insulin Detemir Inj 1,000 UNIT/10 ML Vial SQ SCH (22:02)
[2018-09-01] MEDS: hydrALAZINE 25 MG Tablet PO SCH ×3 (09:02→17:56)
[2018-09-01] MEDS: amLODIPine 10 MG Tablet PO SCH (09:02)
[2018-09-01] MEDS: Sodium Chloride 0.9% 2 ML Flush BID IV.FLUSH SCH ×2 (09:03→21:32)
[2018-09-01] MEDS: Collagenase Oint 30 GM Tube TOPICAL SCH (09:04)
[2018-09-01] MEDS: Insulin NovoLOG Aspart Correctional Sugar Inj SQ SCH ×4 (09:06→21:32)
--- NOTE | 2018-09-01 09:34 | P.PNIM ---
Subjective Interval history: Patient says he feeling all right. Denies any chest pain shortness of breath. Reports pain is controlled. Physical Exam Vital signs: Vital Signs 08/31/18 10:12 08/31/18 11:12 08/31/18 12:00 Temperature 98.3 F 97.7 F 98 F Pulse Rate 54 L 50 L 48 L Respiratory Rate 18 18 18 Blood Pressure 173/98 H 130/70 134/75 Pulse Oximetry 97 98 98 08/31/18 13:00 08/31/18 15:12 08/31/18 16:00 Temperature 98.3 F 98.3 F Pulse Rate 50 L 47 L Respiratory Rate 18 18 Blood Pressure 145/78 H 143/73 H Pulse Oximetry 98 97 98 08/31/18 19:12 08/31/18 20:00 08/31/18 22:03 Temperature 97.4 F L 97.5 F L Pulse Rate 52 L 53 L Respiratory Rate 20 20 Blood Pressure 142/84 H 145/92 H 108/59 L Pulse Oximetry 95 08/31/18 22:04 09/01/18 00:00 09/01/18 04:00 Temperature 98.0 F 98.2 F Pulse Rate 47 L 50 L Respiratory Rate 20 20 Blood Pressure 108/55 L 138/64 170/78 H Pulse Oximetry 95 93 L 09/01/18 07:12 09/01/18 08:00 Temperature 97.7 F 97.7 F Pulse Rate 20 L 50 L Respiratory Rate 20 20 Blood Pressure 157/74 H 157/74 H Pulse Oximetry 93 L 93 L Intake & Output 08/31/18 09/01/18 09/01/18 18:59 06:59 18:59 Intake Total 660 / 660 600 / 600 Output Total 1200 / 1200 Balance 660 / 660 -600 / -600 Intake: IV 100 / 100 Rocephin Inj 2,000 MG In NS Inj 100 / 100 100 ML @ 200 mls/hr IV.SIG Q24H RAVINDRA Rx#:[id number] Oral 560 / 560 600 / 600 Output: Urine 1200 / 1200 Other: # Voids 4 Date of Last Bowel Movement 08/30/18 Narrative: GENERAL: Patient sitting up in bed. Appears comfortable. SKIN: Warm and dry. HEAD: Normocephalic. Small contusion with small skin abrasion right superior lateral skull. No bleeding. As before EYES: No scleral icterus. No injection or drainage. NECK: Supple, trachea midline. No JVD or lymphadenopathy. CARDIOVASCULAR: Regular rate and rhythm without murmurs, gallops, or rubs. RESPIRATORY: Breath sounds equal bilaterally. No accessory muscle use. GASTROINTESTINAL: Abdomen soft, non-tender, nondistended. MUSCULOSKELETAL: No cyanosis, or edema. Left posterior thorax with abscess, packing in place. Minimal surrounding erythema. BACK: Nontender without obvious deformity. No CVA tenderness. - Urinary Catheter Management Indwelling Urethral Catheter Cath placed during this visit: yes, but has since been removed by the nurse Reason for continuing: Hourly intake/output Insertion date: 08/25/18 Insertion time: 13:16 Removal date: 08/26/18 Removal time: 04:05 Results - Labs CBC & Chem 7: 08/30/18 05:29 08/31/18 13:35 Laboratory Results - last 24 hr 08/31/18 13:35 Sodium 141 Potassium 4.1 Chloride 99 Carbon Dioxide 32.9 H Anion Gap 9 BUN 21 H Creatinine 1.36 H Estimated GFR 54 L Random Glucose 192 H Calcium 8.7 Microbiology 08/26/18 14:10 Blood - Peripheral Aerobic Blood Culture - Final No growth in 5 days 08/26/18 14:10 Blood - Peripheral Anaerobic Blood Culture - Final No growth in 5 days 08/26/18 14:15 Blood - Peripheral Aerobic Blood Culture - Final No growth in 5 days 08/26/18 14:15 Blood - Peripheral Anaerobic Blood Culture - Final No growth in 5 days Assessment and Plan - Assessment (1) Hyperthermia Code(s): R50.9 - Fever, unspecified Status: Acute (2) Sepsis Code(s): A41.9 - Sepsis, unspecified organism Status: Acute (3) Soft tissue abscess Code(s): L02.91 - Cutaneous abscess, unspecified Status: Acute (4) Diabetes mellitus Code(s): E11.9 - Type 2 diabetes mellitus without complications Status: Acute - Plan Mr. Anne is a pleasant 58 year old male with a history of diabetes mellitus who was brought to the hospital by EMS with altered mental status, GCS 5 and temp 106.7 after he was found at the side of the road in the sun. //Hyperthermia - Possibly heat stroke. His condition improved with normal saline infusion. - CK 304, will check again this afternoon. //Sepsis (Fever, WBC over 17K, lactic acid 3.2, probable infection skin abscess) . //Left upper back skin abscess //Gram-positive bacteremia. - We will obtain an ultrasound study. - Empirically, we will start Vancomycin and Zosyn. - Blood cultures pending = 08/26. Gram-positive bacteremia today. Repeat blood cultures, check echocardiogram, consult infectious disease. Possible sources include back abscess as well as bilateral foot ulcers. Continue IV antibiotics. General surgery consulted. Appreciate assistance for I&D today. = 08/27. Blood cultures with coag negative staph. Repeat blood cultures from - to date. Appreciate general surgery assistance. Continue broad-spectrum antibiotics as per infectious disease. = 08/27. Continue IV antibiotics as per infectious disease. Await sensitivities of blood cultures from admission. Continue with wound VAC. IV antibiotics as per infectious disease. Appreciate toy consultant assistance. = 08/29. Follow-up cultures from 08/27 incision and drainage from abscess. Growing group A beta strep and coag negative staph. Appreciate ID assistance. Continue IV antibiotics as per ID = 08/30. Continue antibiotics as per infectious disease. Discussed with infectious disease. Hopefully patient can go home on Augmentin 10-day course after cleared by general surgery. = 09/01. Follow-up general surgery recommendations //Bilateral diabetic foot ulcers Continue IV antibiotics. Consult podiatry. = 08/28. Follow-up podiatry recommendations. = 08/29. Continue wound care as per podiatry. Appreciate assistance. = 08/30. Doppler read is pending. Follow-up podiatry recommendations. = Follow-up podiatry recommendations. //Diabetes mellitus //Diabetes retinopathy //Diabetic peripheral neuropathy -Start Levemir 15 units QHS, sliding scale insulin and pre-meal insulin. -May consider Gabapentin once creatinine improves. = Blood sugars acceptable. Continue to monitor. //Elevated blood pressures. Systolic blood pressures in the 180s. Will discontinue IV fluid for now. Follow-up labs. = 08/30. Systolic blood pressures in the 190s. Will add hydralazine, scheduled clonidine, amlodipine. Will try to avoid diuretics secondary to patient's outdoor lifestyle. = 08/31. Blood pressure improved today. We will continue to monitor. //Elevated CK. CK up to 2226. Continue IV fluids. Continue to monitor. = Subsequent CK in the 500s. Much improved. //Status post fall mechanical fall. Patient also reports lightheadedness = We will check orthostatic vitals. //Acute kidney injury -Creatinine 3.1 on admission. Likely due to volume depletion. -Will provide aggressive hydration with NS 200cc/hour. -Repeat BMP, Lactic acid, Total CK in the afternoon today and labs in the AM. = Creatinine 2.0, improving. Continue IV fluids. = Creatinine 1.3. Stable. Discharge Planning: = We will need general surgery clearance = Will need podiatry clearance = Will need 10-day course of Augmentin 500 mg p.o. 3 times daily = We will need all of his medications refilled. = Patient is homeless. Will need transportation. Will need to follow-up with Dr. Chang in the wound care clinic.
--- NOTE | 2018-09-01 17:58 | P.PN ---
Subjective Interval history: No issues; almost no pain. Physical Exam Vital signs: Vital Signs 08/31/18 19:12 08/31/18 20:00 08/31/18 22:03 Temperature 97.4 F L 97.5 F L Pulse Rate 52 L 53 L Respiratory Rate 20 20 Blood Pressure 142/84 H 145/92 H 108/59 L Pulse Oximetry 95 08/31/18 22:04 09/01/18 00:00 09/01/18 04:00 Temperature 98.0 F 98.2 F Pulse Rate 47 L 50 L Respiratory Rate 20 20 Blood Pressure 108/55 L 138/64 170/78 H Pulse Oximetry 95 93 L 09/01/18 07:12 09/01/18 08:00 09/01/18 10:38 Temperature 97.7 F 97.7 F Pulse Rate 20 L 54 L Respiratory Rate 20 20 Blood Pressure 157/74 H 157/74 H Pulse Oximetry 93 L 93 L 96 09/01/18 11:12 09/01/18 12:00 Temperature 98.3 F 97.9 F Pulse Rate 52 L 51 L Respiratory Rate 18 20 Blood Pressure 142/71 H 123/61 Pulse Oximetry 95 94 L Intake & Output 08/31/18 09/01/18 09/01/18 18:59 06:59 18:59 Intake Total 660 / 660 600 / 600 100 / 100 Output Total 1200 / 1200 Balance 660 / 660 -600 / -600 100 / 100 Intake: IV 100 / 100 100 / 100 Rocephin Inj 2,000 MG In NS Inj 100 / 100 100 / 100 100 ML @ 200 mls/hr IV.SIG Q24H RAVINDRA Rx#:[id number] Oral 560 / 560 600 / 600 Output: Urine 1200 / 1200 Other: # Voids 4 Date of Last Bowel Movement 08/30/18 - Routine Back/Spine/Pelvis Exam Comments: Left upper back wound with some necrotic soft tissue. No evidence of infection. Wound cleaned with peroxide - Urinary Catheter Management Indwelling Urethral Catheter Cath placed during this visit: yes, but has since been removed by the nurse Reason for continuing: Hourly intake/output Insertion date: 08/25/18 Insertion time: 13:16 Removal date: 08/26/18 Removal time: 04:05 Results - Labs CBC & Chem 7: 08/30/18 05:29 08/31/18 13:35 Assessment and Plan - Assessment (1) Soft tissue abscess Code(s): L02.91 - Cutaneous abscess, unspecified Status: Acute Plan: Patient needs continued dressing changes and possible debridement of the soft tissue if granulation base is not improved in the next 24-48 hours. He is not ready for discharge as he will need to be seen at a wound care center and I am concerned about his follow-up. - Plan Discussed Condition With: Patient Nurse - Attending Attestation I attest that I had a [id number] encounter with the patient on the same day, and personally performed and documented my assessment and findings in the medical record. The following services were provided during this hospital visit: Chart data review, vital sign assessments/reviewing monitor data Review of consultation notes if present Medication orders/review and/or management Ordering and/or reviewing lab tests Ordering and/or interpreting/reviewing x-rays and/or diagnostic studies Care of the patient and discussion of the patient with the care team Documentation time To help prompt me to consider important information that might be impacting today's encounter and assessment, Information from prior notes written by myself or my colleagues may have been "brought forward/copy and pasted" into today's note.
[2018-09-01] MEDS: Insulin Detemir Inj 1,000 UNIT/10 ML Vial SQ SCH (21:32)
--- NOTE | 2018-09-02 09:00 | P.PNIM ---
Subjective Interval history: Patient says he is feeling right. Denies any chest pain shortness of breath. Denies nausea or vomiting. Feels like going home. Physical Exam Vital signs: Vital Signs 09/01/18 10:38 09/01/18 11:12 09/01/18 12:00 Temperature 98.3 F 97.9 F Pulse Rate 52 L 51 L Respiratory Rate 18 20 Blood Pressure 142/71 H 123/61 Pulse Oximetry 96 95 94 L 09/01/18 16:00 09/01/18 20:00 09/02/18 00:00 Temperature 98 F 99.1 F 98.2 F Pulse Rate 47 L 47 L 46 L Respiratory Rate 20 16 16 Blood Pressure 125/73 121/66 147/65 H Pulse Oximetry 94 L 96 93 L 09/02/18 04:00 Temperature 97.9 F Pulse Rate 50 L Respiratory Rate 16 Blood Pressure 156/75 H Pulse Oximetry 94 L Intake & Output 09/01/18 09/02/18 09/02/18 18:59 06:59 18:59 Intake Total 660 / 660 480 / 480 Output Total 450 / 450 250 / 250 Balance 210 / 210 230 / 230 Weight 86 kg Intake: IV 100 / 100 Rocephin Inj 2,000 MG In NS Inj 100 / 100 100 ML @ 200 mls/hr IV.SIG Q24H RAVINDRA Rx#:[id number] Oral 560 / 560 480 / 480 Output: Urine 450 / 450 250 / 250 Other: # Bowel Movements 0 Narrative: GENERAL: Patient sitting up in bed. Appears comfortable. [id number] SKIN: Warm and dry. HEAD: Normocephalic. Small contusion with small skin abrasion right superior lateral skull. No bleeding. As before EYES: No scleral icterus. No injection or drainage. NECK: Supple, trachea midline. No JVD or lymphadenopathy. CARDIOVASCULAR: Regular rate and rhythm without murmurs, gallops, or rubs. RESPIRATORY: Breath sounds equal bilaterally. No accessory muscle use. GASTROINTESTINAL: Abdomen soft, non-tender, nondistended. MUSCULOSKELETAL: No cyanosis, or edema. Left posterior thorax with abscess, packing in place. Minimal surrounding erythema. BACK: Nontender without obvious deformity. No CVA tenderness. - Urinary Catheter Management Indwelling Urethral Catheter Cath placed during this visit: yes, but has since been removed by the nurse Reason for continuing: Hourly intake/output Insertion date: 08/25/18 Insertion time: 13:16 Removal date: 08/26/18 Removal time: 04:05 Results - Labs CBC & Chem 7: 08/30/18 05:29 08/31/18 13:35 Laboratory Results - last 24 hr 09/01/18 09/02/18 21:31 08:27 POC Glucose 160 H 203 H Assessment and Plan - Assessment (1) Hyperthermia Code(s): R50.9 - Fever, unspecified Status: Acute (2) Sepsis Code(s): A41.9 - Sepsis, unspecified organism Status: Acute (3) Soft tissue abscess Code(s): L02.91 - Cutaneous abscess, unspecified Status: Acute (4) Diabetes mellitus Code(s): E11.9 - Type 2 diabetes mellitus without complications Status: Acute - Plan Mr. Anne is a pleasant 58 year old male with a history of diabetes mellitus who was brought to the hospital by EMS with altered mental status, GCS 5 and temp 106.7 after he was found at the side of the road in the sun. //Hyperthermia - Possibly heat stroke. His condition improved with normal saline infusion. - CK 304, will check again this afternoon. //Sepsis (Fever, WBC over 17K, lactic acid 3.2, probable infection skin abscess) . //Left upper back skin abscess //Gram-positive bacteremia. - We will obtain an ultrasound study. - Empirically, we will start Vancomycin and Zosyn. - Blood cultures pending = 08/26. Gram-positive bacteremia today. Repeat blood cultures, check echocardiogram, consult infectious disease. Possible sources include back abscess as well as bilateral foot ulcers. Continue IV antibiotics. General surgery consulted. Appreciate assistance for I&D today. = 08/27. Blood cultures with coag negative staph. Repeat blood cultures from - to date. Appreciate general surgery assistance. Continue broad-spectrum antibiotics as per infectious disease. = 08/27. Continue IV antibiotics as per infectious disease. Await sensitivities of blood cultures from admission. Continue with wound VAC. IV antibiotics as per infectious disease. Appreciate media sales consultant assistance. = 08/29. Follow-up cultures from 08/27 incision and drainage from abscess. Growing group A beta strep and coag negative staph. Appreciate ID assistance. Continue IV antibiotics as per ID = 08/30. Continue antibiotics as per infectious disease. Discussed with infectious disease. Hopefully patient can go home on Augmentin 10-day course after cleared by general surgery. = 09/01. Follow-up general surgery recommendations = 09/02. Can discharge home when cleared by general surgery. //Bilateral diabetic foot ulcers Continue IV antibiotics. Consult podiatry. = 08/28. Follow-up podiatry recommendations. = 08/29. Continue wound care as per podiatry. Appreciate assistance. = 08/30. Doppler read is pending. Follow-up podiatry recommendations. = Follow-up podiatry recommendations. //Diabetes mellitus //Diabetes retinopathy //Diabetic peripheral neuropathy -Start Levemir 15 units QHS, sliding scale insulin and pre-meal insulin. -May consider Gabapentin once creatinine improves. = Blood sugars acceptable. Continue to monitor. //Elevated blood pressures. Systolic blood pressures in the 180s. Will discontinue IV fluid for now. Follow-up labs. = 08/30. Systolic blood pressures in the 190s. Will add hydralazine, scheduled clonidine, amlodipine. Will try to avoid diuretics secondary to patient's outdoor lifestyle. = 08/31. Blood pressure improved today. We will continue to monitor. //Elevated CK. CK up to 2226. Continue IV fluids. Continue to monitor. = Subsequent CK in the 500s. Much improved. //Status post fall mechanical fall. Patient also reports lightheadedness = We will check orthostatic vitals. //Acute kidney injury -Creatinine 3.1 on admission. Likely due to volume depletion. -Will provide aggressive hydration with NS 200cc/hour. -Repeat BMP, Lactic acid, Total CK in the afternoon today and labs in the AM. = Creatinine 2.0, improving. Continue IV fluids. = Creatinine 1.3. Stable. Discharge Planning: = We will need general surgery clearance = Cleared by podiatry. = Will need 10-day course of Augmentin 500 mg p.o. 3 times daily = We will need all of his medications refilled. = Patient is homeless. Will need transportation. Will need to follow-up with Dr. Rivers in the wound care clinic. Case management to provide patient with transportation vouchers to wound care clinic
[2018-09-02] MEDS: amLODIPine 10 MG Tablet PO SCH (09:19)
[2018-09-02] MEDS: hydrALAZINE 25 MG Tablet PO SCH ×3 (09:19→18:19)
[2018-09-02] MEDS: Collagenase Oint 30 GM Tube TOPICAL SCH (09:19)
[2018-09-02] MEDS: Sodium Chloride 0.9% 2 ML Flush BID IV.FLUSH SCH ×2 (09:19→21:20)
[2018-09-02] MEDS: Insulin NovoLOG Aspart Correctional Sugar Inj SQ SCH ×4 (09:20→21:20)
--- NOTE | 2018-09-02 12:51 | P.PN ---
Subjective Interval history: No issues Physical Exam Vital signs: Vital Signs 09/01/18 16:00 09/01/18 20:00 09/02/18 00:00 Temperature 98 F 99.1 F 98.2 F Pulse Rate 47 L 47 L 46 L Respiratory Rate 20 16 16 Blood Pressure 125/73 121/66 147/65 H Pulse Oximetry 94 L 96 93 L 09/02/18 04:00 09/02/18 08:00 09/02/18 12:00 Temperature 97.9 F 98.2 F 98 F Pulse Rate 50 L 51 L 50 L Respiratory Rate 16 16 16 Blood Pressure 156/75 H 177/81 H 112/58 L Pulse Oximetry 94 L 99 98 Intake & Output 09/01/18 09/02/18 09/02/18 18:59 06:59 18:59 Intake Total 660 / 660 480 / 480 100 / 100 Output Total 450 / 450 250 / 250 Balance 210 / 210 230 / 230 100 / 100 Weight 86 kg Intake: IV 100 / 100 100 / 100 Rocephin Inj 2,000 MG In NS Inj 100 / 100 100 / 100 100 ML @ 200 mls/hr IV.SIG Q24H RAVINDRA Rx#:[id number] Oral 560 / 560 480 / 480 Output: Urine 450 / 450 250 / 250 Other: # Bowel Movements 0 - Routine Back/Spine/Pelvis Exam Comments: Wound on back sack cleaner than yesterday; <25cm2 subcutaneous tissue debrided at bedside. Pt. tolerated procedure well. - Urinary Catheter Management Indwelling Urethral Catheter Cath placed during this visit: yes, but has since been removed by the nurse Reason for continuing: Hourly intake/output Insertion date: 08/25/18 Insertion time: 13:16 Removal date: 08/26/18 Removal time: 04:05 Results - Labs CBC & Chem 7: 08/30/18 05:29 08/31/18 13:35 Laboratory Results - last 24 hr 09/01/18 09/02/18 09/02/18 21:31 08:27 12:06 POC Glucose 160 H 203 H 246 H Assessment and Plan - Assessment (1) Soft tissue abscess Code(s): L02.91 - Cutaneous abscess, unspecified Status: Acute Plan: S/P I&D LEFT upper back abscess; debridement subq tissue today; wound is sack cleaner than yesterday. OK to get into shower; needs close monitoring of wound still. He is not ready for discharge as he will need to be seen at a wound care center and I am concerned about his follow-up. - Attending Attestation I attest that I had a [id number] encounter with the patient on the same day, and personally performed and documented my assessment and findings in the medical record. The following services were provided during this hospital visit: Chart data review, vital sign assessments/reviewing monitor data Review of consultation notes if present Medication orders/review and/or management Ordering and/or reviewing lab tests Ordering and/or interpreting/reviewing x-rays and/or diagnostic studies Care of the patient and discussion of the patient with the care team Documentation time To help prompt me to consider important information that might be impacting today's encounter and assessment, Information from prior notes written by myself or my colleagues may have been "brought forward/copy and pasted" into today's note.
[2018-09-02] MEDS: Insulin Detemir Inj 1,000 UNIT/10 ML Vial SQ SCH (21:20)
[2018-09-03] MEDS: Insulin NovoLOG Aspart Correctional Sugar Inj SQ SCH ×2 (09:12→12:35)
[2018-09-03] MEDS: Sodium Chloride 0.9% 2 ML Flush BID IV.FLUSH SCH (09:13)
[2018-09-03] MEDS: amLODIPine 10 MG Tablet PO SCH (09:13)
[2018-09-03] MEDS: hydrALAZINE 25 MG Tablet PO SCH ×2 (09:13→12:35)
[2018-09-03] MEDS: Collagenase Oint 30 GM Tube TOPICAL SCH (09:17)
[2018-09-03 09:58] VITALS: RESP 17
--- NOTE | 2018-09-03 11:46 | P.PNIM ---
Subjective Interval history: Patient says he is feeling well. Denies any chest pain shortness of breath. Denies nausea or vomiting. Reports pain is controlled. Physical Exam Vital signs: Vital Signs 09/02/18 12:00 09/02/18 16:00 09/02/18 20:00 Temperature 98 F 98 F 97.9 F Pulse Rate 51 L 47 L 47 L Respiratory Rate 16 17 17 Blood Pressure 112/58 L 121/58 L 141/67 H Pulse Oximetry 98 97 96 09/03/18 00:00 09/03/18 04:00 09/03/18 08:00 Temperature 97.9 F 98.4 F 98.1 F Pulse Rate 51 L 50 L 50 L Respiratory Rate 15 14 17 Blood Pressure 129/58 L 132/70 149/71 H Pulse Oximetry 98 100 96 Intake & Output 09/02/18 09/03/18 09/03/18 18:59 06:59 18:59 Intake Total 820 / 820 420 / 420 Output Total 850 / 850 1050 / 1050 Balance -30 / -30 -630 / -630 Weight 85.9 kg Intake: IV 100 / 100 Rocephin Inj 2,000 MG In NS Inj 100 / 100 100 ML @ 200 mls/hr IV.SIG Q24H RAVINDRA Rx#:[id number] Oral 720 / 720 420 / 420 Output: Urine 850 / 850 1050 / 1050 Other: # Bowel Movements 1 Narrative: GENERAL: Patient sitting in bed. Appears comfortable. SKIN: Warm and dry. HEAD: Normocephalic. EYES: No scleral icterus. No injection or drainage. NECK: Supple, trachea midline. No JVD. CARDIOVASCULAR: Regular rate and rhythm without murmurs, gallops, or rubs. RESPIRATORY: Breath sounds equal bilaterally. No accessory muscle use. GASTROINTESTINAL: Abdomen soft, non-tender, nondistended. MUSCULOSKELETAL: No cyanosis, or edema. BACK: Nontender without obvious deformity. No CVA tenderness. - Urinary Catheter Management Indwelling Urethral Catheter Cath placed during this visit: yes, but has since been removed by the nurse Reason for continuing: Hourly intake/output Insertion date: 08/25/18 Insertion time: 13:16 Removal date: 08/26/18 Removal time: 04:05 Results - Labs CBC & Chem 7: 08/30/18 05:29 10/06/18 13:35 Laboratory Results - last 24 hr 09/02/18 09/02/18 09/02/18 12:06 17:15 21:19 POC Glucose 246 H 108 114 H Assessment and Plan - Assessment (1) Hyperthermia Code(s): R50.9 - Fever, unspecified Status: Acute (2) Sepsis Code(s): A41.9 - Sepsis, unspecified organism Status: Acute (3) Soft tissue abscess Code(s): L02.91 - Cutaneous abscess, unspecified Status: Acute (4) Diabetes mellitus Code(s): E11.9 - Type 2 diabetes mellitus without complications Status: Acute - Plan Mr. Anne is a pleasant 58 year old male with a history of diabetes mellitus who was brought to the hospital by EMS with altered mental status, GCS 5 and temp 106.7 after he was found at the side of the road in the sun. //Hyperthermia - Possibly heat stroke. His condition improved with normal saline infusion. - CK 304, will check again this afternoon. //Sepsis (Fever, WBC over 17K, lactic acid 3.2, probable infection skin abscess) . //Left upper back skin abscess //Gram-positive bacteremia. - We will obtain an ultrasound study. - Empirically, we will start Vancomycin and Zosyn. - Blood cultures pending = 08/26. Gram-positive bacteremia today. Repeat blood cultures, check echocardiogram, consult infectious disease. Possible sources include back abscess as well as bilateral foot ulcers. Continue IV antibiotics. General surgery consulted. Appreciate assistance for I&D today. = 08/27. Blood cultures with coag negative staph. Repeat blood cultures from - to date. Appreciate general surgery assistance. Continue broad-spectrum antibiotics as per infectious disease. = 08/27. Continue IV antibiotics as per infectious disease. Await sensitivities of blood cultures from admission. Continue with wound VAC. IV antibiotics as per infectious disease. Appreciate cardiology clinical consultant assistance. = 08/29. Follow-up cultures from 08/27 incision and drainage from abscess. Growing group A beta strep and coag negative staph. Appreciate ID assistance. Continue IV antibiotics as per ID = 08/30. Continue antibiotics as per infectious disease. Discussed with infectious disease. Hopefully patient can go home on Augmentin 10-day course after cleared by general surgery. = 09/01. Follow-up general surgery recommendations = 09/02. Can discharge home when cleared by general surgery. = 09/03. Discussed with general surgery. Will need daily dressing changes. Follow with wound care clinic //Bilateral diabetic foot ulcers Continue IV antibiotics. Consult podiatry. = 08/28. Follow-up podiatry recommendations. = 08/29. Continue wound care as per podiatry. Appreciate assistance. = 08/30. Doppler read is pending. Follow-up podiatry recommendations. = Normal SARWAT. //Diabetes mellitus //Diabetes retinopathy //Diabetic peripheral neuropathy -Start Levemir 15 units QHS, sliding scale insulin and pre-meal insulin. -May consider Gabapentin once creatinine improves. = Blood sugars acceptable. Continue to monitor. //Elevated blood pressures. Systolic blood pressures in the 180s. Will discontinue IV fluid for now. Follow-up labs. = 08/30. Systolic blood pressures in the 190s. Will add hydralazine, scheduled clonidine, amlodipine. Will try to avoid diuretics secondary to patient's outdoor lifestyle. = 08/31. Blood pressure improved today. We will continue to monitor. //Elevated CK. CK up to 2226. Continue IV fluids. Continue to monitor. = Subsequent CK in the 500s. Much improved. //Status post fall mechanical fall. Patient also reports lightheadedness = We will check orthostatic vitals. //Acute kidney injury -Creatinine 3.1 on admission. Likely due to volume depletion. -Will provide aggressive hydration with NS 200cc/hour. -Repeat BMP, Lactic acid, Total CK in the afternoon today and labs in the AM. = Creatinine 2.0, improving. Continue IV fluids. = Creatinine 1.3. Stable. Discharge Planning: = We will need general surgery clearance = Cleared by podiatry. = Will need 10-day course of Augmentin 500 mg p.o. 3 times daily = We will need all of his medications refilled. = Patient is homeless. Will need transportation. Will need to follow-up with Dr. Rivers in the wound care clinic. Case management to provide patient with transportation vouchers to wound care clinic
--- NOTE | 2018-09-03 11:48 | P.DS ---
Date of admission: 08/25/18 16:54 Primary care physician: UNKNOWN Brief History from admission: Mr. Eulogio Anne is a pleasant 58 year old male ( 1960) with a history of diabetes mellitus who was brought to the ED after he was found in altered mental status on the side of a road in the sun. Initially, he came in with GCS 5 and temp of 106.7. Patient recalls going to a store to buy a few things. He was then returning back with this bike but he was not riding his bike. He did not have any chest pain, shortness of breath. He may have felt some dizziness. He does not recall anything else that happened to him. He was given 3L of chilled NS in the ED. His mentation improved quite well. At the time of this interview, patient is coherent and pleasant. He reports a painful area on his left upper back that started about one week ago but much worse in the last two days. He had subjective fever and chills. It has been difficult to sleep due to this lesion on his left upper back. He denies any changes in bladder or bowel habits. PMH: Diabetes mellitus PSH: No major surgeries Social history: Drinks whenever he can obtain drinks. Denies using tobacco or illicit drugs. Family history: Parents had diabetes, brother had diabetes as well. DS: Diagnosis - Discharge Diagnosis (1) Hyperthermia Status: Acute (2) Sepsis Status: Acute (3) Soft tissue abscess Status: Acute (4) Diabetes mellitus Status: Acute DS: Medications - Discharge Medications Prescriptions: amlodipine [Norvasc] 10 mg PO DAILY 30 Days #30 tab amoxicillin-pot clavulanate [Augmentin] 1 tab PO BID 10 Days #20 tab clonidine HCl [Catapres] 0.1 mg PO Q8HR 30 Days tab hydralazine 25 mg PO TID 30 Days #90 tab insulin aspart U-100 [Novolog Flexpen U-100 Insulin] 1 dose SUBCUT AC 30 Days ml insulin detemir U-100 [Levemir FlexTouch U-100 Insuln] 20 unit SUBCUT QPM 30 Days #6 ml pen needle, diabetic [Lite Touch Insulin Pen [place]] #120 each DS: Summary Hospital Course: Patient presented with sepsis, fever, leukocytosis, lactic acidosis, skin abscess. Patient was started on IV antibiotics. General surgery was consulted , patient underwent incision and drainage, subsequent debridement of left posterior thorax abscess. Wound culture grew group A strep, and infectious disease recommends continuing on Augmentin as outpatient [place] course. Patient with coagulase-negative staph on admission blood cultures, however repeat negativeechocardiogram negative for medications. Infectious disease feels that this is contaminant. Patient presented with acute kidney injury creatinine 3.1 admission. This improved with IV fluids. Patient will need to follow with general surgery, wound care clinic. Diabetes medications were refilled. For problem-based summary from most recent progress note, please see below. Mr. Anne is a pleasant 58 year old male with a history of diabetes mellitus who was brought to the hospital by EMS with altered mental status, GCS 5 and temp 106.7 after he was found at the side of the road in the sun. //Hyperthermia - Possibly heat stroke. His condition improved with normal saline infusion. - CK 304, will check again this afternoon. //Sepsis (Fever, WBC over 17K, lactic acid 3.2, probable infection skin abscess) . //Left upper back skin abscess //Gram-positive bacteremia. - We will obtain an ultrasound study. - Empirically, we will start Vancomycin and Zosyn. - Blood cultures pending = 08/26. Gram-positive bacteremia today. Repeat blood cultures, check echocardiogram, consult infectious disease. Possible sources include back abscess as well as bilateral foot ulcers. Continue IV antibiotics. General surgery consulted. Appreciate assistance for I&D today. = 08/27. Blood cultures with coag negative staph. Repeat blood cultures from - to date. Appreciate general surgery assistance. Continue broad-spectrum antibiotics as per infectious disease. = 08/27. Continue IV antibiotics as per infectious disease. Await sensitivities of blood cultures from admission. Continue with wound VAC. IV antibiotics as per infectious disease. Appreciate it infrastructure consultant assistance. = 08/29. Follow-up cultures from 08/27 incision and drainage from abscess. Growing group A beta strep and coag negative staph. Appreciate ID assistance. Continue IV antibiotics as per ID = 08/30. Continue antibiotics as per infectious disease. Discussed with infectious disease. Hopefully patient can go home on Augmentin 10-day course after cleared by general surgery. = 09/01. Follow-up general surgery recommendations = 09/02. Can discharge home when cleared by general surgery. = 09/03. Discussed with general surgery. Will need daily dressing changes. Follow with wound care clinic //Bilateral diabetic foot ulcers Continue IV antibiotics. Consult podiatry. = 08/28. Follow-up podiatry recommendations. = 08/29. Continue wound care as per podiatry. Appreciate assistance. = 08/30. Doppler read is pending. Follow-up podiatry recommendations. = Normal SARWAT. //Diabetes mellitus //Diabetes retinopathy //Diabetic peripheral neuropathy -Start Levemir 15 units QHS, sliding scale insulin and pre-meal insulin. -May consider Gabapentin once creatinine improves. = Blood sugars acceptable. Continue to monitor. //Elevated blood pressures. Systolic blood pressures in the 180s. Will discontinue IV fluid for now. Follow-up labs. = 08/30. Systolic blood pressures in the 190s. Will add hydralazine, scheduled clonidine, amlodipine. Will try to avoid diuretics secondary to patient's outdoor lifestyle. = 08/31. Blood pressure improved today. We will continue to monitor. //Elevated CK. CK up to 2227. Continue IV fluids. Continue to monitor. = Subsequent CK in the 500s. Much improved. //Status post fall mechanical fall. Patient also reports lightheadedness = We will check orthostatic vitals. //Acute kidney injury -Creatinine 3.1 on admission. Likely due to volume depletion. -Will provide aggressive hydration with NS 200cc/hour. -Repeat BMP, Lactic acid, Total CK in the afternoon today and labs in the AM. = Creatinine 2.0, improving. Continue IV fluids. = Creatinine 1.3. Stable. Discharge Planning: = We will need general surgery clearance = Cleared by podiatry. = Will need 10-day course of Augmentin 500 mg p.o. 3 times daily = We will need all of his medications refilled. = Patient is homeless. Will need transportation. Will need to follow-up with Dr. Rivers in the wound care clinic. Case management to provide patient with transportation vouchers to wound care clinic - Time Spent with Patient Total time spent providing and/or coordinating discharge services: Greater than 30 minutes - Quality: VTE Deep Vein Thrombosis/Pulmonary Embolism Present on Admission: No Exam Vital signs: Vital Signs 09/02/18 12:00 09/02/18 16:00 09/02/18 20:00 Temperature 98 F 98 F 97.9 F Pulse Rate 51 L 47 L 47 L Respiratory Rate 16 17 17 Blood Pressure 112/58 L 121/58 L 141/67 H Pulse Oximetry 98 97 96 09/03/18 00:00 09/03/18 04:00 09/03/18 08:00 Temperature 97.9 F 98.4 F 98.1 F Pulse Rate 51 L 50 L 50 L Respiratory Rate 15 14 17 Blood Pressure 129/58 L 132/70 149/71 H Pulse Oximetry 98 100 96 Intake & Output 09/02/18 09/03/18 09/03/18 18:59 06:59 18:59 Intake Total 820 / 820 420 / 420 Output Total 850 / 850 1050 / 1050 Balance -30 / -30 -630 / -630 Weight 85.9 kg Intake: IV 100 / 100 Rocephin Inj 2,000 MG In NS Inj 100 / 100 100 ML @ 200 mls/hr IV.SIG Q24H RAVINDRA Rx#:[id number] Oral 720 / 720 420 / 420 Output: Urine 850 / 850 1050 / 1050 Other: # Bowel Movements 1 Results Procedures completed during hospitalization: incision and debridement of left posterior thorax abscess. Please see report. Labs on day of discharge: Labs from last 24 hours 09/02/18 09/02/18 09/02/18 21:19 17:15 12:06 POC Glucose 114 H 108 246 H - Impressions ITS Impressions Soft Tissue Ultrasound 08/25/18 00:00 CONCLUSION: 1. Complex hypoechoic masslike structure which is nonspecific. This could represent a hematoma. Chest X-Ray 08/25/18 13:09 CONCLUSION: Right IJ central venous catheter in good position. The lungs are clear. Head CT 08/25/18 13:09 CONCLUSION: 1. Negative CT Head non contrast. . Extremity Arterial Study 08/28/18 00:00 CONCLUSION: 1. ABIs and TBI's in the normal range bilaterally. Discharge Plan - Discharge Disposition Patient Disposition: 01 Discharge Home - Discharge Condition Condition: Good - Discharge Order Discharge Orders: Discharge Order (Routine); Ordered 09/03/18 Ordered By: Lj Mahoney - Discharge Details Anticipated Discharge Date: 09/02/18 Discharge Comment: Need follow-up with Dr. Rivers homeless. Discharge when arrangements made for daily dressing changes, as well as wound care clinic follow-up - Physicians Team Primary Care Provider: UNKNOWN, Attending Provider: Lj Mahoney Other Providers: Adrianne Camejo MD ; Eduardo Gonsalez MD ; Priti Lovelace DPM
[2018-09-03 13:46] VITALS: BP 118/56; PULSE 52; TEMP 98; O2SAT 99
--- NOTE | 2018-09-03 14:27 | P.DCO ---
- Diagnosis (1) Soft tissue abscess Status: Acute - Home Health Nursing Order: Wound care and dressing changes Instructions: Left Upper back ---- moist 2x2 loosley packed into wound-- cover with dry dressing and secure with tape; change daily and PRN - Case Management Consult Yes - Certification I have seen patient Eulogio Anne II on 09/03/18. My clinical findings support the need for the requested home health care services because: Limited ability to care for self I certify that my clinical findings support that this patient is homebound because: Need for psychosocial assistance
== END 2018-09-03 17:05 | disposition home or self-care (01) ==
LOC: NEPE 13:04 → EDBD 16:54 → MERGE 16:54 → NEDA 16:54 → N04 21:31
PROVIDERS: ADMIT Internal Medicine; ATTEND Internal Medicine
DX: W01.0XXA Fall on same level from slipping, tripping and stumbling without subsequent striking against object, initial encounter; E86.9 Volume depletion, unspecified; B95.7 Other staphylococcus as the cause of diseases classified elsewhere; N17.9 Acute kidney failure, unspecified; L02.212 Cutaneous abscess of back [any part, except buttock and flank]; L97.519 Non-pressure chronic ulcer of other part of right foot with unspecified severity; A41.9 Sepsis, unspecified organism; Z77.22 Contact with and (suspected) exposure to environmental tobacco smoke (acute) (chronic); T67.0XXA Heatstroke and sunstroke, initial encounter; Y92.231 Patient bathroom in hospital as the place of occurrence of the external cause; Z59.0 Homelessness; E11.621 Type 2 diabetes mellitus with foot ulcer; L03.312 Cellulitis of back [any part except buttock and flank]; E11.42 Type 2 diabetes mellitus with diabetic polyneuropathy; S00.83XA Contusion of other part of head, initial encounter; E11.319 Type 2 diabetes mellitus with unspecified diabetic retinopathy without macular edema; R03.0 Elevated blood-pressure reading, without diagnosis of hypertension; L97.529 Non-pressure chronic ulcer of other part of left foot with unspecified severity